=== PATIENT | female | born 1990 | race Caucasian/White ===

== ENCOUNTER 2016-07-11 21:58 | Emergency (ER) | payer MEDICAID ==
[2016-07-11] MEDS ORDERED: SODIUM CHLORIDE 0.9% 1,000 ML IV ONE (22:24)
[2016-07-11] MEDS ORDERED: ONDANSETRON 4 MG/2 ML VIAL IVP STA (22:24)
[2016-07-11] MEDS ORDERED: DIPHENOX/ATROPINE 2.5/0.025 MG TABLET PO STA (22:24)
[2016-07-11] MEDS ORDERED: KETOROLAC 60 MG/2 ML VIAL IVP STA (22:24)
[2016-07-11] MEDS ORDERED: KETOROLAC 30 MG/ML VIAL ONE (22:26)
[2016-07-11] MEDS ORDERED: DIPHENOX/ATROPINE 2.5/0.025 MG TABLET PO ONE (22:26)
[2016-07-11] MEDS ORDERED: ONDANSETRON 4 MG/2 ML VIAL ONE (22:26)
[2016-07-11] MEDS ORDERED: ACETAMINOPHEN 1,000 MG/100 ML 100 ML IV STA (23:46)
[2016-07-12] MEDS ORDERED: ACETAMINOPHEN 1,000 MG/100 ML 100 ML IV ONE
[2016-07-12] MEDS ORDERED: IOPAMIDOL-300 100 ML VIAL IVP ONE (00:25)
[2016-07-12] MEDS ORDERED: ONDANSETRON ODT 4 MG Prepack 2 TL PRN (01:09)
[2016-07-12] MEDS ORDERED: HYDROcod/ACET 5/325 Prepack 6 PO ONE ×2 (01:09→01:12)
[2016-07-12] MEDS ORDERED: ONDANSETRON ODT 4 MG Prepack 2 TL ONE (01:12)
== END 2016-07-12 01:28 | disposition home or self-care (01) ==
DX: R10.31 Right lower quadrant pain (principal); R19.7 Diarrhea, unspecified; R11.2 Nausea with vomiting, unspecified; D27.1 Benign neoplasm of left ovary
CPT/HCPCS: 36415; 74177; 80053; 83690; 85025; 96374; 96375; 99283; 99284; A9270; J0131; Q9967

== ENCOUNTER 2016-12-27 19:11 | Emergency (ER) | payer MEDICAID ==
[2016-12-27 19:35] LABS: BILIRUBIN,URINE NEGATIVE (NEGATIVE); PH,URINE 5.5 PH (5.0-7.5)
[2016-12-27 19:38] LABS: HCG UR QUAL POSITIVE; UA CHARGE (STRIP ONLY) YES; UR CULTURE IF IND NOT INDICATED
[2016-12-27 19:52] LABS: BASOPHILS % (AUTO) 0.3 %; EOSINOPHILS % (AUTO) 0.6 %; HCT - HEMATOCRIT 41.9 % (37.0-47.0); HGB - HEMOGLOBIN 14.3 g/dL (12.0-16.0); LYMPHOCYTES % (AUTO) 14.4 %; MEAN CORPUSCULAR HEMOGLOBIN 31.2 pg (27.0-31.0); MEAN CORPUSCULAR HGB CONC 34.1 g/dL (32.0-36.0); MEAN CORPUSCULAR VOLUME 91.5 fL (81.0-99.0); MEAN PLATELET VOLUME 8.6 fL (7.9-10.8); MONOCYTES # (AUTO) 0.5 10^3/uL (0.0-1.0); MONOCYTES % (AUTO) 6.5 %; NEUTROPHILS # (AUTO) 5.4 10^3/uL (1.5-6.6); NEUTROPHILS % (AUTO) 78.2 %; NUCLEATED RED BLOOD CELLS AUTO 0.1 /100WBC; RED BLOOD COUNT 4.58 10^6/uL (4.20-5.40)
[2016-12-27 20:02] LABS: ALBUMIN/GLOBULIN RATIO 1.4 (1.0-2.2); BILIRUBIN,TOTAL 1.8 mg/dL (0.2-1.0); CALCIUM 9.4 mg/dL (8.5-10.3); CREATININE 0.7 mg/dL (0.4-1.0); POTASSIUM 3.6 mmol/L (3.5-5.0); TOTAL PROTEIN 7.8 g/dL (6.7-8.2)
[2016-12-27] MEDS ORDERED: SODIUM CHLORIDE 0.9% 1,000 ML IV ONE ×2 (20:07→20:25)
--- NOTE | 2016-12-27 20:23 | ED Physician Documentation ---
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 Yesterday she developed acute diarrhea nausea and vomiting. She had some central abdominal pain with this similar to what she has had when she has had her ventral hernia. She feels dehydrated she has had diarrhea 8 times today. She has not had diarrhea here in the emergency department. Review of Systems Constitutional: reports: Fever, Fatigue Eyes: denies: Decreased vision Ears: reports: Ear pain (Right ear) Nose: denies: Congestion Throat: denies: Sore throat Cardiac: denies: Chest pain / pressure, Palpitations Respiratory: denies: Dyspnea, Cough GI: reports: Abdominal Pain, Nausea, Vomiting, Diarrhea : denies: Dysuria, Frequency Skin: denies: Rash Musculoskeletal: denies: Neck pain, Back pain, Extremity pain Neurologic: reports: Generalized weakness. 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 : None HEENT: None Psych: Depression, Panic attacks Musculoskeletal: None Derm: None - Past Surgical History Past Surgical History: Yes General: Hiatal hernia repair /RECRUITMENT AND OUTREACH ASSISTANT: Dilation and currettage - Present Medications Home Medications: Ambulatory Orders Medication Instructions Recorded Confirmed Hydrocodone/Acetaminophen 1 - 2 each PO Q6H PRN #14 tablet 06/10/16 [Hydrocodon-Acetaminophen 5-325] Ondansetron Odt [Zofran] 4 mg TL Q6H PRN #10 tablet 06/10/16 Valacyclovir HCl [Valtrex] 1,000 mg PO BID #20 tablet 06/10/16 Dicyclomine [Bentyl] 20 mg PO QID PRN #15 capsule 07/12/16 Diphenoxylate/Atropine [Lomotil] 1 each PO QID PRN #15 tablet 07/12/16 Ondansetron Odt [Zofran] 4 mg TL Q6H PRN #15 tablet 07/12/16 - Allergies Allergies/Adverse Reactions: Allergies Allergy/AdvReac Type Severity Reaction Status Date / Time No Known Drug Allergies Allergy Verified 12/27/16 19:18 - Social History Does the pt smoke?: No Smoking Status: Never smoker Does the pt drink ETOH?: Yes Does the pt have substance abuse?: Yes - Immunizations Immunizations are current?: Yes - POLST Patient has POLST: No PD ED PE NORMAL - Vitals Vital signs reviewed: Yes (Hypertensive) - General General: Alert and oriented X 3, No acute distress, Well developed/nourished - HEENT HEENT: Atraumatic, PERRL, EOMI, Ears normal - Neck Neck: Supple, no meningeal sign, No bony TTP - Cardiac Cardiac: RRR, No murmur - Respiratory Respiratory: No respiratory distress, Clear bilaterally - Abdomen Abdomen: Soft, Non tender - Back Back: No CVA TTP, No spinal TTP - Derm Derm: Normal color, Warm and dry, No rash - Extremities Extremities: No deformity, No edema - Neuro Neuro: No motor deficit, No sensory deficit - Psych Psych: Normal mood, Normal affect Results - Vitals Vitals: Vital Signs - 24 hr 12/27/16 12/27/16 19:18 21:09 Temperature 37.0 C 36.5 C Heart Rate 90 52 L Respiratory 16 15 Rate Blood Pressure 143/90 H 117/71 O2 Saturation 100 96 Oxygen O2 Source Room air - Labs Labs: Laboratory Tests 12/27/16 12/27/16 12/27/16 19:30 19:40 19:40 WBC 7.0 RBC 4.58 Hgb 14.3 Hct 41.9 MCV 91.5 MCH 31.2 H MCHC 34.1 RDW 13.0 Plt Count 213 MPV 8.6 Neut # 5.4 Lymph # 1.0 L [place] # 0.5 Eos # 0.0 Baso # 0.0 Absolute Nucleated RBC 0.01 Nucleated RBCs 0.1 Sodium 135 Potassium 3.6 Chloride 103 Carbon Dioxide 25 Anion Gap 7.0 BUN 8 Creatinine 0.7 Estimated GFR (MDRD) 100 Glucose 149 H POC Whole Bld Glucose Calcium 9.4 Total Bilirubin 1.8 H AST 18 ALT 15 Alkaline Phosphatase 47 Total Protein 7.8 Albumin 4.5 Globulin 3.3 Albumin/Globulin Ratio 1.4 Lipase 21 L Urine Color YELLOW Urine Clarity CLEAR Urine pH 5.5 Ur Specific [place] >=1.030 H Urine Protein NEGATIVE Urine Glucose (UA) NEGATIVE Urine Ketones 40 H Urine Occult Blood NEGATIVE Urine Nitrite NEGATIVE Urine Bilirubin NEGATIVE Urine Urobilinogen 0.2 (NORMAL) Ur Leukocyte Esterase NEGATIVE Ur Microscopic Review NOT INDICATED Urine Culture Comments NOT INDICATED Urine HCG, Qual POSITIVE 12/27/16 22:26 WBC RBC Hgb Hct MCV MCH MCHC RDW Plt Count MPV Neut # Lymph # [place] # Eos # Baso # Absolute Nucleated RBC Nucleated RBCs Sodium Potassium Chloride Carbon Dioxide Anion Gap BUN Creatinine Estimated GFR (MDRD) Glucose POC Whole Bld Glucose 92 Calcium Total Bilirubin AST ALT Alkaline Phosphatase Total Protein Albumin Globulin Albumin/Globulin Ratio Lipase Urine Color Urine Clarity Urine pH Ur Specific [place] Urine Protein Urine Glucose (UA) Urine Ketones Urine Occult Blood Urine Nitrite Urine Bilirubin Urine Urobilinogen Ur Leukocyte Esterase Ur Microscopic Review Urine Culture Comments Urine HCG, Qual Procedures - IVC sono (time) 2019 Bedside IVC sono: IVC measures (cm) (1.22), IVC collapsed c insp (cm) (complete) , Dehydration (1 liter down) PD MEDICAL DECISION MAKING - ED course Complexity details: reviewed old records, reviewed results, re-evaluated patient , considered differential, d/w patient ED course: 26-year-old female again with gastroenteritis that involves diarrhea nausea and vomiting and abdominal pain. She has had this a number of times about every 6 months. 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 We will try to obtain a stool specimen here in the emergency department. She is hydrated with IV saline and Zofran.She has improvement in her symptoms and does not produce a specimen of diarrhea. Her blood sugar was elevated 149 on arrival she had just eaten prior to coming into the emergency department a popsicle. We rechecked her sugar here in the emergency department it was 95. She will follow-up with Dr. Thomas regarding her . Departure - Departure Disposition: 01 Home, Self Care Clinical Impression: Gastroenteritis, Dehydration Instructions: ED Dehydration, ED Gastroenteritis Non Infec Follow-Up: Andrea Maynard MD [Provider Admit Priv/Credential] - Forms: Activity restrictions
[2016-12-27] MEDS ORDERED: ONDANSETRON 4 MG/2 ML VIAL IVP STA (20:24)
[2016-12-27] MEDS ORDERED: ONDANSETRON 4 MG/2 ML VIAL ONE (20:25)
[2016-12-27 22:43] VITALS: BP 122/70
== END 2016-12-27 22:48 | disposition home or self-care (01) ==
LOC: ED 19:11
DX: E86.0 Dehydration (principal); O99.611 Diseases of the digestive system complicating pregnancy, first trimester; K52.9 Noninfective gastroenteritis and colitis, unspecified; O99.511 Diseases of the respiratory system complicating pregnancy, first trimester; J45.909 Unspecified asthma, uncomplicated; Z3A.08 8 weeks gestation of pregnancy
CPT/HCPCS: 36415; 80053; 81001; 81003; 81025; 83690; 85025; 87086; 96361; 96374; 99284

== ENCOUNTER 2018-01-24 23:25 | Emergency (ER) | payer SELFPAY ==
[2018-01-24] MEDS ORDERED: LORazepam 2 MG/ML VIAL IVP STA (23:53)
[2018-01-24] MEDS ORDERED: SODIUM CHLORIDE 0.9% 1,000 ML IV ONE (23:54)
--- NOTE | 2018-01-24 23:54 | ED Physician Documentation ---
History of Present Illness - Stated complaint Stated Complaint: SOA,DIZZINESS - Chief complaint Chief Complaint: Resp - History obtained from History obtained from: Patient - Additonal information Additional information: 27-year-old female presents the emergency department with multiple complaints which started while at work this evening. The patient reports feeling dizzy and lightheaded, short of breath and experienced chest pain. The patient reports the symptoms as a panic attack which she could not get through. The patient's had panic attacks in the past and this is similar to prior episodes. The patient is somewhat improved. The patient denies peripheral edema, fever, cough, URI symptoms or unilateral leg swelling. No other associated symptoms. No triggering factors. Symptoms are described as moderate. No radiation of the symptoms Review of Systems Constitutional: denies: Fever, Chills Eyes: denies: Discharge Ears: denies: Ear pain Nose: denies: Congestion Cardiac: reports: Chest pain / pressure, Palpitations Respiratory: reports: Dyspnea GI: denies: Abdominal Pain : denies: Dysuria Skin: denies: Rash Musculoskeletal: denies: Neck pain Neurologic: reports: Near syncope. 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 : None HEENT: None Psych: Depression, Panic attacks Musculoskeletal: None Derm: None - Past Surgical History Past Surgical History: Yes General: Hiatal hernia repair /HARDWARE INSTALLATION COORDINATOR: Dilation and currettage - Present Medications Home Medications: Ambulatory Orders Medication Instructions Recorded Confirmed Hydrocodone/Acetaminophen 1 - 2 each PO Q6H PRN #14 tablet 06/10/16 [Hydrocodon-Acetaminophen 5-325] Ondansetron Odt [Zofran] 4 mg TL Q6H PRN #10 tablet 06/10/16 Valacyclovir HCl [Valtrex] 1,000 mg PO BID #20 tablet 06/10/16 Dicyclomine [Bentyl] 20 mg PO QID PRN #15 capsule 07/12/16 Diphenoxylate/Atropine [Lomotil] 1 each PO QID PRN #15 tablet 07/12/16 Ondansetron Odt [Zofran] 4 mg TL Q6H PRN #15 tablet 07/12/16 - Allergies Allergies/Adverse Reactions: Allergies Allergy/AdvReac Type Severity Reaction Status Date / Time No Known Drug Allergies Allergy Verified 01/24/18 23:35 - Social History Does the pt smoke?: No Smoking Status: Never smoker Does the pt drink ETOH?: Yes Does the pt have substance abuse?: Yes - Immunizations Immunizations are current?: Yes - POLST Patient has POLST: No PD ED PE NORMAL - General General: Alert and oriented X 3, No acute distress - HEENT HEENT: Atraumatic, PERRL, EOMI, Ears normal - Neck Neck: Supple, no meningeal sign - Cardiac Cardiac: RRR, Strong equal pulses - Respiratory Respiratory: No respiratory distress, Clear bilaterally - Abdomen Abdomen: Soft, Non tender - Derm Derm: Normal color - Extremities Extremities: No deformity, No edema - Neuro Neuro: Alert and oriented X 3, Normal speech - Psych Psych: Normal mood Results - Vitals Vitals: Vital Signs - 24 hr 01/24/18 01/24/18 01/25/18 23:33 23:45 00:40 Temperature 36.7 C Heart Rate 91 97 66 Respiratory 18 16 16 Rate Blood Pressure 162/104 H 120/77 O2 Saturation 100 98 99 01/25/18 01/25/18 01/25/18 00:46 01:01 01:02 Temperature Heart Rate 74 73 Respiratory 17 17 16 Rate Blood Pressure 125/92 H O2 Saturation 97 100 Oxygen O2 Source Room air - EKG (time done) 23:45 Rate: Rate (enter#) Rhythm: NSR Intervals: Normal VT, QRS normal QRS: Normal Ischemia: Normal ST segments - Labs Labs: Laboratory Tests 01/25/18 01/25/18 01/25/18 00:00 00:10 00:10 WBC 9.1 RBC 4.60 Hgb 14.1 Hct 41.5 MCV 90.4 MCH 30.8 MCHC 34.0 RDW 12.7 Plt Count 243 MPV 9.3 Neut # (Auto) 5.0 Lymph # (Auto) 3.4 [place] # (Auto) 0.5 Eos # (Auto) 0.1 Baso # (Auto) 0.1 Absolute Nucleated RBC 0.01 Nucleated RBC % 0.1 D-Dimer < 200.0 L Sodium Potassium Chloride Carbon Dioxide Anion Gap BUN Creatinine Estimated GFR (MDRD) Glucose Calcium Total Bilirubin AST ALT Alkaline Phosphatase Troponin I Total Protein Albumin Globulin Albumin/Globulin Ratio Lipase Serum HCG, Qual Urine Color LT. YELLOW Urine Clarity CLEAR Urine pH 7.0 Ur Specific [place] 1.010 Urine Protein NEGATIVE Urine Glucose (UA) NEGATIVE Urine Ketones NEGATIVE Urine Occult Blood NEGATIVE Urine Nitrite NEGATIVE Urine Bilirubin NEGATIVE Urine Urobilinogen 0.2 (NORMAL) Ur Leukocyte Esterase NEGATIVE Ur Microscopic Review NOT INDICATED Urine Culture Comments NOT INDICATED 01/25/18 01/25/18 01/25/18 00:10 00:10 00:10 WBC RBC Hgb Hct MCV MCH MCHC RDW Plt Count MPV Neut # (Auto) Lymph # (Auto) [place] # (Auto) Eos # (Auto) Baso # (Auto) Absolute Nucleated RBC Nucleated RBC % D-Dimer Sodium 136 Potassium 3.4 L Chloride 100 L Carbon Dioxide 28 Anion Gap 8.0 BUN 19 Creatinine 0.9 Estimated GFR (MDRD) 75 L Glucose 108 H Calcium 10.0 Total Bilirubin 1.2 H AST 18 ALT 19 Alkaline Phosphatase 60 Troponin I < 0.04 Total Protein 8.7 H Albumin 4.6 Globulin 4.1 Albumin/Globulin Ratio 1.1 Lipase 33 Serum HCG, Qual NEGATIVE Urine Color Urine Clarity Urine pH Ur Specific [place] Urine Protein Urine Glucose (UA) Urine Ketones Urine Occult Blood Urine Nitrite Urine Bilirubin Urine Urobilinogen Ur Leukocyte Esterase Ur Microscopic Review Urine Culture Comments PD MEDICAL DECISION MAKING - ED course ED course: The patient's workup does not reveal any acute abnormality that would necessitate admission to the hospital and the patient appears appropriate for discharge home and further evaluation as an outpatient. I discussed with the patient the findings and plan she understands and agrees. I discussed warning signs and recommended returning to the emergency department immediately for any worsening or any concerns. - Sepsis Event Vital Signs: Vital Signs - 24 hr 01/24/18 01/24/18 01/25/18 23:33 23:45 00:40 Temperature 36.7 C Heart Rate 91 97 66 Respiratory 18 16 16 Rate Blood Pressure 162/104 H 120/77 O2 Saturation 100 98 99 01/25/18 01/25/18 01/25/18 00:46 01:01 01:02 Temperature Heart Rate 74 73 Respiratory 17 17 16 Rate Blood Pressure 125/92 H O2 Saturation 97 100 Oxygen O2 Source Room air Departure - Departure Disposition: 01 Home, Self Care Clinical Impression: Dizziness, Shortness of breath Chest pain Qualifiers: Chest pain type: unspecified Qualified Code(s): R07.9 - Chest pain, unspecified Condition: Good Instructions: ED Dyspnea Shortness of Breath, ED Chest Pain [facility] Comments: Please follow-up with primary care this coming week for further evaluation and management of your symptoms. Please return to the emergency department immediately for worsening symptoms or any concerns
[2018-01-25 00:31] LABS: BASOPHILS # (AUTO) 0.1 10^3/uL (0.0-0.1); BASOPHILS % (AUTO) 0.6 %; EOSINOPHILS # (AUTO) 0.1 10^3/uL (0.0-0.7); EOSINOPHILS % (AUTO) 0.9 %; HGB - HEMOGLOBIN 14.1 g/dL (12.0-16.0); LYMPHOCYTES # (AUTO) 3.4 10^3/uL (1.5-3.5); LYMPHOCYTES % (AUTO) 37.5 %; MEAN CORPUSCULAR HEMOGLOBIN 30.8 pg (27.0-31.0); MEAN CORPUSCULAR VOLUME 90.4 fL (81.0-99.0); MEAN PLATELET VOLUME 9.3 fL (7.9-10.8); MONOCYTES # (AUTO) 0.5 10^3/uL (0.0-1.0); MONOCYTES % (AUTO) 5.5 %; NEUTROPHILS % (AUTO) 55.5 %; PLT - PLATELET COUNT 243 10^3/uL (130-450); RED CELL DISTRIBUTION WIDTH 12.7 % (12.0-15.0); WHITE BLOOD COUNT 9.1 x10^3/uL (4.8-10.8)
[2018-01-25 00:40] LABS: ALBUMIN 4.6 g/dL (3.2-5.5); ALBUMIN/GLOBULIN RATIO 1.1 (1.0-2.2); BILIRUBIN,TOTAL 1.2 mg/dL (0.2-1.0); CREATININE 0.9 mg/dL (0.4-1.0); TOTAL PROTEIN 8.7 g/dL (6.7-8.2)
--- NOTE | 2018-01-25 00:46 | XRAY Report ---
Procedure Date: 01/25/2018 Accession Number: [id number] / [id number] Procedure: XR - Chest 2 View X-Ray CPT Code: 92805 FULL RESULT: EXAM: CHEST RADIOGRAPHY EXAM DATE: 01/25/2018 12:38 AM. CLINICAL HISTORY: Sob. COMPARISON: CHEST 2 VIEW PA/LAT 06/20/2014. TECHNIQUE: 2 views. FINDINGS: Lungs/Pleura: No focal opacities evident. No pleural effusion. No pneumothorax. Normal volumes. Mediastinum: Heart and mediastinal contours are unremarkable. Other: None. IMPRESSION: Normal 2-view chest radiography. RADIA
[2018-01-25 00:53] LABS: HCG,QUALITATIVE BLOOD NEGATIVE
[2018-01-25 00:59] LABS: BILIRUBIN,URINE NEGATIVE (NEGATIVE); GLUCOSE, URINE (UA) NEGATIVE (NEGATIVE); KETONES,URINE (UA) NEGATIVE (NEGATIVE); LEUKOCYTE ESTERASE, URINE NEGATIVE (NEGATIVE); NITRITE,URINE NEGATIVE (NEGATIVE); OCCULT BLOOD,URINE NEGATIVE (NEGATIVE); PROTEIN,URINE NEGATIVE (NEGATIVE); UROBILINOGEN,URINE 0.2 (NORMAL) E.U./dL (NORMAL)
[2018-01-25 01:02] LABS: CLARITY,URINE CLEAR (CLEAR)
[2018-01-25 01:34] VITALS: BP 125/88
== END 2018-01-25 01:25 | disposition home or self-care (01) ==
LOC: ED 23:25
DX: R42 Dizziness and giddiness (principal); R06.02 Shortness of breath; R07.9 Chest pain, unspecified
CPT/HCPCS: 36415; 71046; 80053; 81003; 83690; 84484; 84703; 85025; 85379; 93005; 96361; 96374; 99284; J2060; 81001; 87086

== ENCOUNTER 2019-07-10 12:11 | Outpatient (CLI) | payer BC, OTHER | END 2019-07-10 23:59 | disposition home or self-care (01) | LOC: LAB.R 12:11 | PROVIDERS: ATTEND Family Medicine | DX: A36.9 Diphtheria, unspecified (principal); R05 Cough; R09.81 Nasal congestion | CPT/HCPCS: 87275; 87276 ==

== ENCOUNTER 2019-11-02 17:14 | Outpatient (CLI) | payer BC | END 2019-11-02 17:15 | disposition home or self-care (01) | LOC: COV 17:14 | PROVIDERS: ATTEND Family Medicine | DX: R50.9 Fever, unspecified (principal); M79.10 Myalgia, unspecified site; R53.83 Other fatigue; J02.9 Acute pharyngitis, unspecified | CPT/HCPCS: 81599 ==

== ENCOUNTER 2020-11-22 08:50 | Outpatient (CLI) | payer BC ==
--- NOTE | 2020-11-22 09:51 | XRAY Report ---
PROCEDURE: Chest 2 View X-Ray INDICATIONS: VIRAL SYNDROME TECHNIQUE: 2 view(s) of the chest. COMPARISON: 01/25/2018. FINDINGS: Surgical changes and devices: None. Lungs and pleura: No pleural effusions or pneumothorax. Lungs are clear. Mediastinum: Mediastinal contours are normal. Heart size is normal. Bones and chest wall: No suspicious bony abnormalities. Soft tissues appear unremarkable. IMPRESSION: No acute cardiopulmonary process. Reviewed by: Kenyon Rose MD on 11/22/2020 9:49 AM PDT Approved by: Kenyon Rose MD on 11/22/2020 9:49 AM PDT Station ID: [id number]
== END 2020-11-22 23:59 | disposition home or self-care (01) ==
LOC: DI.N 08:50
PROVIDERS: ATTEND Physician Assistant Medical
DX: B34.9 Viral infection, unspecified (principal); Z20.822 Contact with and (suspected) exposure to COVID-19

== ENCOUNTER 2021-04-11 13:00 | Outpatient (CLI) | payer BC, MEDICAID ==
[2021-04-11 14:27] LABS: BILIRUBIN,URINE NEGATIVE (NEGATIVE); GLUCOSE, URINE (UA) NEGATIVE (NEGATIVE); KETONES,URINE (UA) TRACE mg/dL (NEGATIVE); LEUKOCYTE ESTERASE, URINE NEGATIVE (NEGATIVE); NITRITE,URINE NEGATIVE (NEGATIVE); OCCULT BLOOD,URINE TRACE-INTA (NEGATIVE); PROTEIN,URINE NEGATIVE (NEGATIVE); UROBILINOGEN,URINE 0.2 (NORMAL) E.U./dL (NORMAL)
[2021-04-11 14:29] LABS: AMORPHOUS SEDIMENT,UR Marked /LPF; BACTERIA,URINE Rare /HPF (None Seen); CLARITY,URINE CLOUDY (CLEAR); RBC,URINE 0-5 /HPF (0-5); SQUAMOUS EPITHELIAL CELL,UR RARE Squamous (<= Few); WBC,URINE 0-3 /HPF (0-5)
== END 2021-04-11 23:59 | disposition home or self-care (01) ==
LOC: LAB 13:00
PROVIDERS: ATTEND Obstetrics & Gynecology
DX: Z32.01 Encounter for pregnancy test, result positive (principal)
CPT/HCPCS: 81001; 87086

== ENCOUNTER 2021-04-25 08:55 | Outpatient (CLI) | payer MEDICAID ==
--- NOTE | 2021-04-25 12:32 | Ultrasound Report ---
PROCEDURE: OB First Trimester w/TV INDICATIONS: POSITIVE TEST OUTSIDE/PRIOR DATING DATA: Last menstrual period (LMP): 02/28/2021. LMP-based estimated date of delivery (JING): 12/05/2021. First dating scan (date and location): 04/25/2021. Estimated date of delivery (JING) from first dating scan: 12/01/2021. The below data below was generated using the ultrasound JING of 12/01/2021 TECHNIQUE: Real-time scanning was performed of the fetus and maternal pelvic organs, with image documentation. Endovaginal scanning was also performed to better visualize the fetus and maternal ovaries. COMPARISON: None. FINDINGS: Embryo: Single living intrauterine fetus is present. [place]-rump length measures 2.0 cm, 8 weeks 4 da ys. Cervical length measures 3.5 cm. Heart rate: 160 Measurement variability in dating: +/- 4 weeks by LMP, +/- 7 days by mean sac diameter (use before 6 weeks gestation if crown-rump length not able to be measured), +/- 5 days by crown-rump length (6-12 weeks gestation). Maternal organs: Ovaries right ovary not well visualized sonographically. There is a presumed left-s ided corpus luteum measuring 2.6 x 1.9 x 2.1 cm. Echogenic lesion involving the left ovary measuring 1.9 x 1.8 x 1.7 cm.. IMPRESSION: Single living intrauterine fetus with a gestational age of 8 weeks and 4 days by today's ultrasound m easurements as above. Left ovarian echogenic lesion, technically nonspecific although could reflect dermoid. Recommend cont inued serial ultrasound follow-up to document long-term stability. Reviewed by: Roberto Lucas MD on 04/25/2021 12:30 PM PDT Approved by: Roberto Lucas MD on 04/25/2021 12:30 PM PDT Station ID: [id number]
== END 2021-04-25 08:56 | disposition home or self-care (01) ==
LOC: DI 08:55
PROVIDERS: ATTEND Obstetrics & Gynecology
DX: Z32.01 Encounter for pregnancy test, result positive (principal)

== ENCOUNTER 2021-06-25 22:43 | Emergency (ER) | payer MEDICAID ==
[2021-06-25 23:22] VITALS: BP 143/97
--- NOTE | 2021-06-25 23:32 | ED Physician Documentation ---
PD HPI SKIN - Stated complaint Stated Complaint: FEMALE - Chief complaint Chief Complaint: Wound - History obtained from History obtained from: Patient - History of Present Illness Timing - onset: Yesterday Timing - duration: Days (2) Timing - details: Abrupt onset, Still present Location: Other (left inguinal area.) Quality / character: Painful, Discolored (red), Swelling. No: Draining Associated symptoms: Other (denies vaginal bleeding nor abd cramping. Is 17 weeks .). No: Fever, Myalgias Contributing factors: No: Recent illness Similar symptoms before: Diagnosis (remote skin abscess, staph, in the past. Not regular problem.) Review of Systems Constitutional: denies: Fever, Chills GI: denies: Nausea, Vomiting : reports: Now EGA (17 weeks). 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: Dilation and currettage - Present Medications Home Medications: Ambulatory Orders Medication Instructions Recorded Confirmed Hydrocodone/Acetaminophen 1 - 2 each PO Q6H PRN #14 tablet 06/10/16 06/25/21 [Hydrocodon-Acetaminophen 5-325] Ondansetron Odt [Zofran] 4 mg TL Q6H PRN #10 tablet 06/10/16 06/25/21 Valacyclovir HCl [Valtrex] 1,000 mg PO BID #20 tablet 06/10/16 06/25/21 Dicyclomine [Bentyl] 20 mg PO QID PRN #15 capsule 07/12/16 06/25/21 Diphenoxylate/Atropine [Lomotil] 1 each PO QID PRN #15 tablet 07/12/16 06/25/21 Clindamycin [Cleocin] 300 mg PO TID 7 Days #15 cap 06/26/21 - Allergies Allergies/Adverse Reactions: Allergies Allergy/AdvReac Type Severity Reaction Status Date / Time No Known Drug Allergies Allergy Verified 06/25/21 23:22 - Social History Does the pt smoke?: No Smoking Status: Never smoker Does the pt drink ETOH?: Yes Does the pt have substance abuse?: Yes - Immunizations Immunizations are current?: Yes - POLST Patient has POLST: No PD ED PE NORMAL - Vitals Vital signs reviewed: Yes - General General: Alert and oriented X 3, Well developed/nourished, Other (appears in pain due to abscess.) - Abdomen Abdomen: Soft, Non tender, Other (gravid to below umbilicus. Bedside U/S showing normal movement and FHB. ) - Derm Derm: Normal color, Warm and dry, Other (left inguinal crease with local swelling and tenderness raised area of fluctuance about 1 x 2 cm. U/S showing local fluid collection without fistula nor any adjacent vessels. ) Results - Vitals Vitals: Vital Signs - 24 hr 06/25/21 23:10 Temperature 37.4 C Heart Rate 103 H Respiratory 16 Rate Blood Pressure 143/97 H O2 Saturation 99 Oxygen O2 Source Room air - Labs Labs: Microbiology 06/26/21 00:44 Wound Culture - Preliminary Thigh - Left Procedures - Abscess I&D (location) left inguinal Preparation: Confirmed with ultrasound, Lidocaine 1%, With epi Incision: Incised with scalpel, Purulent drainage, Irrigated, Culture obtained (due to , so to best identify optimal abx choice.) Other: Pt tolerated well, Antibiotic prescribed (based on presumed staph and acceptable in .) PD MEDICAL DECISION MAKING - ED course Complexity details: considered differential, d/w patient Departure - Departure Disposition: 01 Home, Self Care Clinical Impression: Inguinal abscess Condition: Stable Record reviewed to determine appropriate education?: Yes Instructions: ED Abscess IandD Follow-Up: Arlette Puente CNM, PHYSICAL EDUCATION AIDE [Provider Admit Priv/Credential] - Prescriptions: Clindamycin [Cleocin] 300 mg PO TID 7 Days #15 cap Comments: Warm moist towels or soaks for the area to promote further drainage tonight before bed and again in the morning and tomorrow a few times. The incision to drainage should heal up on its own within a day or 2 so promoting drainage prior to that is good. Clindamycin 3 times a day with food for the next several days. Tylenol or ibuprofen as needed for pains. At this point in your you can still use ibuprofen or naproxen 2-3 times daily regularly for the next few days and then add Tylenol if needed for pain. Add the hydrocodone if needed for worse pain in the short-term. No anti-inflammatories after 20 weeks gestation. Tylenol is good through all of . The culture obtained should result in a couple of days and will call if we need to modify the antibiotic choice based on that. However with the incision and d rainage, 3-5 days of the antibiotic may be sufficient to be fully resolved anyway. I transmitted your prescription to [facility]. Discharge Date/Time: 06/26/21 01:10
[2021-06-25] MEDS ORDERED: IBUPROFEN 600 MG TABLET PO STA (23:46)
[2021-06-25] MEDS ORDERED: HYDROcod/ACETAM 5/325 MG TABLET PO STA (23:46)
[2021-06-25] MEDS ORDERED: LIDOCAINE JELLY 2% 6 ML JEL.PF.APP TOP STA (23:46)
[2021-06-25] MEDS ORDERED: CLINDAMYCIN 150 MG CAPSULE PO STA (23:51)
[2021-06-26] MEDS ORDERED: HYDROcod/ACET 5/325 Prepack 4 PO STA (00:53)
== END 2021-06-26 01:10 | disposition home or self-care (01) ==
LOC: ED 22:43
DX: O99.712 Diseases of the skin and subcutaneous tissue complicating pregnancy, second trimester (principal); L02.214 Cutaneous abscess of groin; Z3A.17 17 weeks gestation of pregnancy
CPT/HCPCS: 10060; 87070; 87205; 99283; A9270

== ENCOUNTER 2021-07-24 19:21 | Outpatient (CLI) | payer MEDICAID ==
--- NOTE | 2021-07-25 11:24 | Ultrasound Report ---
PROCEDURE: OB Detailed Eval INDICATIONS: SUPERVISION OF HIGH RISK OUTSIDE/PRIOR DATING DATA: Last menstrual period (LMP): February 28, 2021. LMP-based estimated date of delivery (JING): December 05, 2021. First dating scan (date ): April 25, 2021. Estimated date of delivery (JING) from first dating scan: December 01, 2021. TECHNIQUE: Real-time scanning was performed of the fetus, with image documentation and biometric measurements. COMPARISON: April 25, 2021 FINDINGS: General: A single living intrauterine gestation is present. Presentation: Vertex Placenta: Placental position is anterior, without previa. Amniotic fluid index: 14.9 cm, appropriate for gestational age. Deepest pocket: 4.7 cm heart rate: 160 beats per minute. Maternal cervical canal: 4.9 cm long; normal length is 2.5 cm or more. biometrics: Biparietal diameter: 4.9 cm Head circumference: 19.3 cm Abdominal circumference: 18.4 cm Femur length: 3.9 cm Estimated gestational age from initial scan: not applicable. Composite gestational age from present scan: 21 weeks, 5 days Estimated weight and percentile: 523.3 g +/- 77 g; 95.3% Measurement variability in biometric dating: +/- 10 days from 12-20 weeks gestation, +/- 2 weeks from 20-30 weeks gestation, +/- 3 weeks at 30 weeks gestation or later. Anatomic survey: Neuro: Ventricles are normal at less than 10 mm. Cisterna magna is normal at 3-11 mm. Cerebellum i s normal in size and morphology. Nuchal skin fold: Normal at less than 6 mm between 14 and 20 weeks gestational age. Face: Limited visualization. Spine: Limited visualization. Heart: 4-chambered heart is present, with normal ventricular outflow tracts. Diaphragm: Diaphragm is intact. Stomach: Left-sided stomach is present. Kidneys: No hydronephrosis. Normal is less than 5 mm in 2nd trimester, less than 7 mm in 3rd trimester. Cord: 3 vessel cord has orthotopic insertion. Bladder: Normal in size. Extremities: All 4 extremities are visualized. IMPRESSION: 1.Single intrauterine gestation as detailed above. Reviewed by: Remi Garcia MD on 07/25/2021 11:23 AM PST Approved by: Remi Garcia MD on 07/25/2021 11:23 AM PST Station ID: [id number]
== END 2021-07-24 19:22 | disposition home or self-care (01) ==
LOC: DI 19:21
PROVIDERS: ATTEND Nurse Practitioner Obstetrics & Gynecology
DX: O09.72 Supervision of high risk pregnancy due to social problems, second trimester (principal); Z3A.21 21 weeks gestation of pregnancy

== ENCOUNTER 2021-08-04 10:42 | Outpatient (CLI) | payer MEDICAID | END 2021-08-04 23:59 | disposition home or self-care (01) | LOC: LAB 10:42 | PROVIDERS: ATTEND Obstetrics & Gynecology | DX: O09.70 Supervision of high risk pregnancy due to social problems, unspecified trimester (principal) | CPT/HCPCS: 36415; 82950 ==

== ENCOUNTER 2021-08-08 08:26 | Outpatient (CLI) | payer MEDICAID ==
[2021-08-08 09:02] LABS: GTT GLUCOSE,FASTING 111 mg/dL (70-100)
== END 2021-08-08 08:27 | disposition home or self-care (01) ==
LOC: LAB 08:26
PROVIDERS: ATTEND Obstetrics & Gynecology
DX: O99.810 Abnormal glucose complicating pregnancy (principal)
CPT/HCPCS: 36415; 82951; 82952

== ENCOUNTER 2021-08-18 09:33 | Outpatient (CLI) | payer MEDICAID | END 2021-08-18 09:34 | disposition home or self-care (01) | LOC: NS 09:33 | PROVIDERS: ATTEND Nurse Practitioner Obstetrics & Gynecology | DX: Z53.9 Procedure and treatment not carried out, unspecified reason (principal) ==

== ENCOUNTER 2021-08-24 21:16 | Emergency (ER) | payer OTHER, MEDICAID ==
[2021-08-24 21:31] VITALS: BP 140/86
--- NOTE | 2021-08-24 21:37 | ED Physician Documentation ---
History of Present Illness - Stated complaint Stated Complaint: EXPOSURE - Chief complaint Chief Complaint: General - History obtained from History obtained from: Patient - History of Present Illness Timing: Today Pain level max: 0 Pain level now: 0 - Additonal information Additional information: Patient is a 30-year-old female work today when she was doing a fingerstick, patient. Blood accidentally splashed up on her forehead and cheek. Unsure if any blood got in her eye or not. Nothing makes it better or worse. Patient is asymptomatic. 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 PRESS CATCHER: Dilation and currettage - Present Medications Home Medications: Ambulatory Orders Medication Instructions Recorded Confirmed Hydrocodone/Acetaminophen 1 - 2 each PO Q6H PRN #14 tablet 06/10/16 06/25/21 [Hydrocodon-Acetaminophen 5-325] Ondansetron Odt [Zofran] 4 mg TL Q6H PRN #10 tablet 06/10/16 06/25/21 Valacyclovir HCl [Valtrex] 1,000 mg PO BID #20 tablet 06/10/16 06/25/21 Dicyclomine [Bentyl] 20 mg PO QID PRN #15 capsule 07/12/16 06/25/21 Diphenoxylate/Atropine [Lomotil] 1 each PO QID PRN #15 tablet 07/12/16 06/25/21 Clindamycin [Cleocin] 300 mg PO TID 7 Days #15 cap 06/26/21 - Allergies Allergies/Adverse Reactions: Allergies Allergy/AdvReac Type Severity Reaction Status Date / Time No Known Drug Allergies Allergy Verified 08/24/21 21:29 - Social History Does the pt smoke?: No Smoking Status: Never smoker Does the pt drink ETOH?: Yes Does the pt have substance abuse?: Yes - Immunizations Immunizations are current?: Yes - POLST Patient has POLST: No PD ED PE NORMAL - Vitals Vital signs reviewed: Yes - General General: Alert and oriented X 3, No acute distress - HEENT HEENT: PERRL, Moist mucous membranes - Neck Neck: Supple, no meningeal sign - Respiratory Respiratory: No respiratory distress - Derm Derm: Warm and dry - Neuro Neuro: Alert and oriented X 3 - Psych Psych: Normal mood, Normal affect Results - Vitals Vitals: Vital Signs - 24 hr 08/24/21 21:29 Temperature 36.5 C Heart Rate 83 Respiratory 16 Rate Blood Pressure 140/86 H O2 Saturation 97 Oxygen O2 Source Room air - Labs Labs: Laboratory Tests 08/24/21 08/24/21 08/24/21 21:48 21:48 22:00 WBC 11.0 H RBC 3.72 L Hgb 11.6 L Hct 34.4 L MCV 92.5 MCH 31.2 H MCHC 33.7 RDW 13.4 Plt Count 246 MPV 10.2 Sodium 136 Potassium 3.9 Chloride 104 Carbon Dioxide 21 Anion Gap 11.0 BUN 11 Creatinine 0.6 Estimated GFR (MDRD) 117 Glucose 117 H Calcium 9.3 Total Bilirubin 0.7 AST 12 ALT 11 Alkaline Phosphatase 61 Total Protein 6.9 Albumin 3.4 Globulin 3.5 Albumin/Globulin Ratio 1.0 Urine Color YELLOW Urine Clarity CLEAR Urine pH 6.0 Ur Specific [place] 1.010 Urine Protein NEGATIVE Urine Glucose (UA) NEGATIVE Urine Ketones NEGATIVE Urine Occult Blood NEGATIVE Urine Nitrite NEGATIVE Urine Bilirubin NEGATIVE Urine Urobilinogen 0.2 (NORMAL) Ur Leukocyte Esterase NEGATIVE Ur Microscopic Review NOT INDICATED Urine Culture Comments NOT INDICATED PD MEDICAL DECISION MAKING - ED course Complexity details: considered differential, d/w patient ED course: Employee exposure panel drawn. This would be a low to no risk exposure. Small amount of blood only to intact skin. No indication for antivirals at this time. Patient counseled regarding signs and symptoms for which I believe and urgent re-evaluation would be necessary. Patient with good understanding of and agreement to plan and is comfortable going home at this time This document was made in part using voice recognition software. While efforts are made to proofread this document, sound alike and grammatical errors may occur. 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 As we discussed this is a low risk exposure. Discharge Date/Time: 08/24/21 22:06
[2021-08-24 21:50] LABS: HCT - HEMATOCRIT 34.4 % (37.0-47.0); HGB - HEMOGLOBIN 11.6 g/dL (12.0-16.0); MEAN CORPUSCULAR HEMOGLOBIN 31.2 pg (27.0-31.0); MEAN CORPUSCULAR HGB CONC 33.7 g/dL (32.0-36.0); MEAN CORPUSCULAR VOLUME 92.5 fL (81.0-99.0); MEAN PLATELET VOLUME 10.2 fL (7.9-10.8); RED BLOOD COUNT 3.72 10^6/uL (4.20-5.40); RED CELL DISTRIBUTION WIDTH 13.4 % (12.0-15.0)
[2021-08-24 22:06] LABS: ALBUMIN 3.4 g/dL (3.2-5.5); BILIRUBIN,TOTAL 0.7 mg/dL (0.2-1.0); CALCIUM 9.3 mg/dL (8.5-10.3); CREATININE 0.6 mg/dL (0.4-1.0); POTASSIUM 3.9 mmol/L (3.5-5.0); TOTAL PROTEIN 6.9 g/dL (6.7-8.2)
[2021-08-24 22:10] LABS: BILIRUBIN,URINE NEGATIVE (NEGATIVE); GLUCOSE, URINE (UA) NEGATIVE (NEGATIVE); KETONES,URINE (UA) NEGATIVE (NEGATIVE); LEUKOCYTE ESTERASE, URINE NEGATIVE (NEGATIVE); NITRITE,URINE NEGATIVE (NEGATIVE); OCCULT BLOOD,URINE NEGATIVE (NEGATIVE); PROTEIN,URINE NEGATIVE (NEGATIVE); UROBILINOGEN,URINE 0.2 (NORMAL) E.U./dL (NORMAL)
[2021-08-24 22:11] LABS: CLARITY,URINE CLEAR (CLEAR)
[2021-08-26 11:41] LABS: HEPATITIS C ANTIBODY NON-REACTIVE (NON-REACTIVE)
[2021-08-28 14:24] LABS: HIV AG/AB 4TH GEN NON-REACTIVE (NON-REACTIVE)
== END 2021-08-24 22:06 | disposition home or self-care (01) ==
LOC: ED 21:16
DX: Z77.21 Contact with and (suspected) exposure to potentially hazardous body fluids (principal)
CPT/HCPCS: 36415; 80053; 81001; 81003; 85027; 86317; 86803; 87086; 87389; 99282; 99283

== ENCOUNTER 2021-09-06 21:24 | Outpatient (CLI) | payer MEDICAID, OTHER ==
[2021-09-06] MEDS ORDERED: SIMETHICONE CHEW 80 MG TABLET PO ONE (22:00)
[2021-09-06] MEDS ORDERED: ONDANSETRON ODT 4 MG TABLET TL ONE (22:00)
[2021-09-06 22:17] LABS: BASOPHILS % (AUTO) 0.2 %; EOSINOPHILS # (AUTO) 0.1 10^3/uL (0.0-0.7); EOSINOPHILS % (AUTO) 0.8 %; HCT - HEMATOCRIT 34.4 % (37.0-47.0); HGB - HEMOGLOBIN 11.9 g/dL (12.0-16.0); LYMPHOCYTES # (AUTO) 1.8 10^3/uL (1.5-3.5); LYMPHOCYTES % (AUTO) 17.3 %; MEAN CORPUSCULAR HEMOGLOBIN 31.4 pg (27.0-31.0); MEAN CORPUSCULAR HGB CONC 34.6 g/dL (32.0-36.0); MEAN CORPUSCULAR VOLUME 90.8 fL (81.0-99.0); MEAN PLATELET VOLUME 10.3 fL (7.9-10.8); MONOCYTES # (AUTO) 0.7 10^3/uL (0.0-1.0); MONOCYTES % (AUTO) 6.5 %; NEUTROPHILS # (AUTO) 7.9 10^3/uL (1.5-6.6); NEUTROPHILS % (AUTO) 74.5 %; PLT - PLATELET COUNT 246 10^3/uL (130-450); RED BLOOD COUNT 3.79 10^6/uL (4.20-5.40); RED CELL DISTRIBUTION WIDTH 13.3 % (12.0-15.0); WHITE BLOOD COUNT 10.6 x10^3/uL (4.8-10.8)
[2021-09-06 22:30] LABS: ALBUMIN 3.2 g/dL (3.2-5.5); ALBUMIN/GLOBULIN RATIO 0.8 (1.0-2.2); ALKALINE PHOSPHATASE 62 IU/L (42-121); ALT ALANINE AMINOTRANSFERASE < 10 IU/L (10-60); AST ASPARTATE AMINOTRANSFERASE 12 IU/L (10-42); BILIRUBIN,TOTAL 0.6 mg/dL (0.2-1.0); BUN - BLOOD UREA NITROGEN 9 mg/dL (6-20); CARBON DIOXIDE - CO2 22 mmol/L (21-32); CHLORIDE 102 mmol/L (101-111); CREATININE 0.6 mg/dL (0.4-1.0); GFR - MDRD 117 (>89); GLUCOSE 111 mg/dL (70-100); POTASSIUM 3.6 mmol/L (3.5-5.0); SODIUM 135 mmol/L (135-145)
[2021-09-06 23:20] VITALS: BP 119/84
--- NOTE | 2021-09-07 15:54 | PROVIDER PROGRESS NOTE ---
- HPI Chief Complaint: GI symptoms Current : Current EDU 12/05/21 Gestation 27 Weeks and 1 Days 13 Para 2 Vital Signs Temperature 36.8 C 09/06/21 21:35 Heart Rate 108 H 09/06/21 21:35 Respiratory Rate 18 09/06/21 21:35 Blood Pressure 135/87 H 09/06/21 21:35 Temperature 36.8 C 09/06/21 23:00 Heart Rate 86 09/06/21 23:00 Respiratory Rate 16 09/06/21 23:00 Blood Pressure 119/84 H 09/06/21 23:00 O2 Saturation - Procedures OB Procedure Performed: NST NST Procedure: NST Procedure Start Date 09/06/21 Start Time 21:31 Stop Time 22:43 Vibroacoustic Stimulation Used No Patient States Movement Yes Service Date of procedure: 09/06/21 - Plan Plan: HPI: Berkley presents today to [facility] with c/o left upper quadrant abdominal pain. She reports normal recent bowel movement, denies urinary symptoms. Has been eating regularly. [place] flushed and nauseous with sudden onset of pain. She denies abdominal trauma. She reports +FM. She denies vaginal bleeding, leakage of fluid or contractions. 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 State she slept poorly due to her son waking her up in the night but then was able to sleep in this morning so she does not feel it could be fatigue related. NST performed 09/06/2021 NST read 09/06/2021 NST reactive. FHR baseline 140s, moderate variability, + accels, no decels No contractions appreciated via tocometry Heart RRR w/o M/G/R, lungs CTAB, abdomen gravid, soft, left upper quadrant tenderness upon palpation. No rebound tenderness. Bilateral LE's no edema. SVE deferred. CBC & CMP WNL Administered 4mg Zofran and simithocone with moderate improvement in symptoms. Pt has routine f/u OB appt tomorrow. Encouraged her to go home and rest. Pt released home with precautions. Pt verbalized understanding and agrees to above plan. She denies further questions or concerns at this time. FINAL DIAGNOSIS: LUQ abdominal pain
== END 2021-09-06 23:00 | disposition home or self-care (01) ==
LOC: WFO 21:24 → FBP 21:39 → WFO 23:00
PROVIDERS: ATTEND Nurse Practitioner Obstetrics & Gynecology
DX: O99.891 Other specified diseases and conditions complicating pregnancy (principal); R10.12 Left upper quadrant pain; R10.812 Left upper quadrant abdominal tenderness; R11.0 Nausea; Z3A.27 27 weeks gestation of pregnancy
CPT/HCPCS: 36415; 59025; 80053; 85025; 99214; A9270; Q0162

== ENCOUNTER 2021-09-12 10:00 | Outpatient (CLI) | payer MEDICAID | END 2021-09-12 10:01 | disposition short-term general hospital (02) | LOC: EMS 10:00 | DX: O99.891 Other specified diseases and conditions complicating pregnancy (principal); H53.132 Sudden visual loss, left eye; O24.419 Gestational diabetes mellitus in pregnancy, unspecified control; Z3A.28 28 weeks gestation of pregnancy | CPT/HCPCS: A0425; A0427; A0999 ==

== ENCOUNTER 2021-10-13 11:40 | Outpatient (CLI) | payer MEDICAID ==
[2021-10-13 12:12] LABS: BASOPHILS % (AUTO) 0.3 %; EOSINOPHILS # (AUTO) 0.1 10^3/uL (0.0-0.7); EOSINOPHILS % (AUTO) 0.7 %; HCT - HEMATOCRIT 35.9 % (37.0-47.0); HGB - HEMOGLOBIN 12.2 g/dL (12.0-16.0); LYMPHOCYTES # (AUTO) 1.4 10^3/uL (1.5-3.5); LYMPHOCYTES % (AUTO) 18.8 %; MEAN CORPUSCULAR VOLUME 91.3 fL (81.0-99.0); MEAN PLATELET VOLUME 10.9 fL (7.9-10.8); MONOCYTES # (AUTO) 0.4 10^3/uL (0.0-1.0); MONOCYTES % (AUTO) 5.4 %; NEUTROPHILS # (AUTO) 5.7 10^3/uL (1.5-6.6); NEUTROPHILS % (AUTO) 74.5 %; PLT - PLATELET COUNT 241 10^3/uL (130-450); RED BLOOD COUNT 3.93 10^6/uL (4.20-5.40); RED CELL DISTRIBUTION WIDTH 13.2 % (12.0-15.0); WHITE BLOOD COUNT 7.6 x10^3/uL (4.8-10.8)
[2021-10-13 12:26] LABS: ALBUMIN 2.9 g/dL (3.2-5.5); ALBUMIN/GLOBULIN RATIO 0.7 (1.0-2.2); CREATININE 0.6 mg/dL (0.4-1.0); POTASSIUM 4.1 mmol/L (3.5-5.0); TOTAL PROTEIN 6.8 g/dL (6.7-8.2)
[2021-10-13 13:37] VITALS: BP 135/80
[2021-10-13 13:56] LABS: CREATININE,URINE 125.4 mg/dL; PROTEIN/CREATININE RATIO,URINE 0.1 (<=0.2)
--- NOTE | 2021-10-13 15:37 | Ultrasound Report ---
PROCEDURE: OB F/U or Repeat INDICATIONS: High blood pressure GDM OUTSIDE/PRIOR DATING DATA: Last menstrual period (LMP): February 28, 2021. LMP-based estimated date of delivery (JING): December 05, 2021. First dating scan (date ): April 25, 2021. Estimated date of delivery (JING) from first dating scan: December 01, 2021. TECHNIQUE: Real-time scanning was performed of the fetus, with image documentation and biometric measurements. COMPARISON: Prior studies dating back to April 25, 2021. FINDINGS: General: A single living intrauterine gestation is present. Presentation: Vertex Placenta: Placental position is anterior, without previa. Amniotic fluid index: 17.5 cm, appropriate for gestational age. heart rate: 152 beats per minute. Maternal cervical canal: 3.3 cm long; normal length is 2.5 cm or more. Anatomic survey: Face: Not well seen due to positioning. Spine: Sacrum not well seen. The remaining spine appears normal. Diaphragm: Diaphragm is intact. Stomach: Left-sided stomach is present. Kidneys: No hydronephrosis. Normal is less than 5 mm in 2nd trimester, less than 7 mm in 3rd trimester. Bladder: Normal in size. Biophysical profile: Tone: 2 points. Movement: 2 points. Respiration: 2 points. Largest pocket of fluid: 2 points. Other: Not applicable. IMPRESSION: Left single intrauterine gestation as detailed above. Reviewed by: Remi Garcia MD on 10/13/2021 3:36 PM PDT Approved by: Remi Garcia MD on 10/13/2021 3:36 PM PDT Station ID: [id number]
--- NOTE | 2021-10-13 15:38 | Ultrasound Report ---
PROCEDURE: OB Biophysical Profile INDICATIONS: GHTN GDM OUTSIDE/PRIOR DATING DATA: Last menstrual period (LMP): February 28, 2021. LMP-based estimated date of delivery (JING): December 05, 2021. First dating scan (date ): April 25, 2021. Estimated date of delivery (JING) from first dating scan: December 01, 2021. TECHNIQUE: Real-time scanning was performed of the fetus, with image documentation and biometric measurements. COMPARISON: Prior studies dating back to April 25, 2021. FINDINGS: General: A single living intrauterine gestation is present. Presentation: Vertex Placenta: Placental position is anterior, without previa. Amniotic fluid index: 17.5 cm, appropriate for gestational age. heart rate: 152 beats per minute. Maternal cervical canal: 3.3 cm long; normal length is 2.5 cm or more. Anatomic survey: Face: Not well seen due to positioning. Spine: Sacrum not well seen. The remaining spine appears normal. Diaphragm: Diaphragm is intact. Stomach: Left-sided stomach is present. Kidneys: No hydronephrosis. Normal is less than 5 mm in 2nd trimester, less than 7 mm in 3rd trimester. Bladder: Normal in size. Biophysical profile: Tone: 2 points. Movement: 2 points. Respiration: 2 points. Largest pocket of fluid: 2 points. Other: Not applicable. IMPRESSION: Left single intrauterine gestation as detailed above. Reviewed by: Remi Garcia MD on 10/13/2021 3:37 PM PDT Approved by: Remi Garcia MD on 10/13/2021 3:37 PM PDT Station ID: [id number]
--- NOTE | 2021-10-13 19:40 | PROCEDURE REPORT ---
- HPI Diagnosis/Indication for NST: Gestational Diabetes Current EDU 12/05/21 Gestation 32 Weeks and 3 Days 3 Para 2 Vital Signs Temperature 36.9 C 10/13/21 11:57 Heart Rate 83 10/13/21 11:57 Respiratory Rate 17 10/13/21 11:57 Blood Pressure 149/90 H 10/13/21 11:57 O2 Saturation 99 10/13/21 11:57 Temperature 36.9 C 10/13/21 11:59 Heart Rate 85 10/13/21 12:08 Respiratory Rate 16 10/13/21 12:08 Blood Pressure 135/80 H 10/13/21 13:36 O2 Saturation 100 10/13/21 12:08 - NST Procedure NST Procedure Start Date 10/13/21 Start Time 11:52 Stop Time 12:12 Vibroacoustic Stimulation Used No Patient States Movement Yes - Results and Plan Findings/Impression: S: Feeling fine. Denies CAMEJO, visual disturbances, RUQ or epigastric pain. Swelling to hands and feet bilaterally. O: BP remains mildly elevated with serial BP monitoring NST performed 10/13/2021 NST read 10/13/2021 NST reactive. FHR baseline 140s, moderate variability, + 10 x 10 accels, no decels No contractions appreciated via tocometry BPP ordered - 01/29 Labs: Hgb 12.2 Hct 35.9 PLT 241 AST 13 ALT 10 Creatinine 0.6 Urine protein/creatinine ratio 0.1 A: 30yo (10)2 @ 32.3wks gestation A2 Gestational diabetes - noncompliant with medication regimen Elevated BP without the diagnosis of hypertension Anxiety associated with depression P: Pt transferred to physician care. Growth ordered however not completed by door technician. Will continue with twice weekly NSTs and once weekly AFIs. Pt released home with precautions. Appt with Dr. Payne next week. Pt verbalized understanding and agrees to above plan. She denies further questions or concerns at this time.
== END 2021-10-13 14:00 | disposition home or self-care (01) ==
LOC: WFO 11:40 → FBP 11:42 → WFO 14:00
PROVIDERS: ATTEND Nurse Practitioner Obstetrics & Gynecology
DX: O24.419 Gestational diabetes mellitus in pregnancy, unspecified control (principal); O99.891 Other specified diseases and conditions complicating pregnancy; R03.0 Elevated blood-pressure reading, without diagnosis of hypertension; O99.343 Other mental disorders complicating pregnancy, third trimester; F41.8 Other specified anxiety disorders; Z3A.32 32 weeks gestation of pregnancy
CPT/HCPCS: 36415; 59025; 80053; 82570; 84156; 85025; 99215

== ENCOUNTER 2021-10-16 13:00 | Outpatient (CLI) | payer MEDICAID ==
[2021-10-16 13:12] VITALS: BP 132/86
[2021-10-16 14:11] LABS: GLUCOSE, URINE (UA) NEGATIVE (NEGATIVE); KETONES,URINE (UA) >=80 mg/dL (NEGATIVE); LEUKOCYTE ESTERASE, URINE NEGATIVE (NEGATIVE); NITRITE,URINE NEGATIVE (NEGATIVE); OCCULT BLOOD,URINE NEGATIVE (NEGATIVE); PH,URINE 6.5 PH (5.0-7.5); PROTEIN,URINE 100 mg/dL (NEGATIVE); UROBILINOGEN,URINE 0.2 (NORMAL) E.U./dL (NORMAL)
[2021-10-16 14:20] LABS: BACTERIA,URINE Few /HPF (None Seen); BILIRUBIN,URINE NEGATIVE (NEGATIVE); CLARITY,URINE CLEAR (CLEAR); ICTOTEST,URINE NEGATIVE; RBC,URINE 0-5 /HPF (0-5); SQUAMOUS EPITHELIAL CELL,UR MOD Squamous (<= Few); WBC,URINE 0-3 /HPF (0-5)
--- NOTE | 2021-10-16 15:54 | Ultrasound Report ---
PROCEDURE: OB Limited INDICATIONS: abd pain OUTSIDE/PRIOR DATING DATA: Last menstrual period (LMP): 02/28/2021. LMP-based estimated date of delivery (JING): 12/05/2021. First dating scan (date and location): 04/25/2021. Estimated date of delivery (JING) from first dating scan: 12/01/2021. TECHNIQUE: Real-time scanning was performed of the fetus, with image documentation. Endovaginal scanning: No COMPARISON: 10/13/2021 ultrasound. FINDINGS: A single living intrauterine gestation is present. Presentation: Vertex Placenta: Placental position is anterior, without previa. Amniotic fluid index: 11.8 cm heart rate: 160 beats per minutes. Maternal cervical canal: 4.8 cm long; normal length is 2.5 cm or more. IMPRESSION: Single living intrauterine gestation. Reviewed by: Daniella Molina MD on 10/16/2021 3:52 PM PDT Approved by: Daniella Molina MD on 10/16/2021 3:52 PM PDT Station ID: [id number]
[2021-10-16 15:55] LABS: BACTERIAL VAGINOSIS DNA NEGATIVE (NEGATIVE); CANDIDA GLABRATA DNA NEGATIVE (NEGATIVE); CANDIDA GROUP DNA NEGATIVE (NEGATIVE); CANDIDA KRUSEI DNA NEGATIVE (NEGATIVE); TRICHOMONAS VAGINALIS DNA NEGATIVE (NEGATIVE)
[2021-10-16 16:20] LABS: CREATININE,URINE 132.6 mg/dL
[2021-10-16 23:41] LABS: CHLAMYDIA TRACHOMATIS DNA NEGATIVE (NEGATIVE); NEISSERIA GONORRHOEAE DNA NEGATIVE (NEGATIVE)
--- NOTE | 2021-10-20 15:41 | PROCEDURE REPORT ---
- HPI Diagnosis/Indication for NST: Gestational Diabetes Current EDU 12/05/21 Gestation 32 Weeks and 6 Days 13 Para 2 Vital Signs Temperature 98.8 F 10/16/21 13:10 Heart Rate 107 H 10/16/21 13:10 Respiratory Rate 10/16/21 13:10 Blood Pressure 132/86 H 10/16/21 13:10 O2 Saturation 100 10/16/21 13:10 Temperature 98.8 F 10/16/21 13:11 Heart Rate 107 H 10/16/21 13:10 Respiratory Rate 10/16/21 13:10 Blood Pressure 132/86 H 10/16/21 13:10 O2 Saturation 100 10/16/21 13:10 - NST Procedure NST Procedure Start Date 10/16/21 Start Time 14:00 Stop Time 14:30 Vibroacoustic Stimulation Used No Patient States Movement Yes EFM 150 mod john 15x15 accels no decels TOCO: quiet - Results and Plan Plan: - Results and Plan Findings/Impression: Patient is a 30 yo at 32+6 wga with affected by GDM and gestational hypertension here for NST Cat I tracing Cont with twice weekly NST and weekly MILAGRO NST read 10/16/21 DOS: 10/16/21 DX: gestational diabetes gestational hypertension IUP at 32+6 wga
== END 2021-10-16 17:00 | disposition home or self-care (01) ==
LOC: WFO 13:00 → FBP 13:02 → WFO 17:00
PROVIDERS: ATTEND Obstetrics & Gynecology
DX: O24.419 Gestational diabetes mellitus in pregnancy, unspecified control (principal); O13.3 Gestational [pregnancy-induced] hypertension without significant proteinuria, third trimester; O99.891 Other specified diseases and conditions complicating pregnancy; R10.9 Unspecified abdominal pain; Z3A.32 32 weeks gestation of pregnancy
CPT/HCPCS: 59025; 81001; 81514; 82570; 82731; 84156; 87491; 87591; 87661; 99214

== ENCOUNTER 2021-10-19 12:59 | Outpatient (CLI) | payer MEDICAID ==
[2021-10-19 13:18] VITALS: BP 155/99
[2021-10-19 13:45] LABS: BASOPHILS % (AUTO) 0.2 %; EOSINOPHILS % (AUTO) 0.1 %; HCT - HEMATOCRIT 36.3 % (37.0-47.0); HGB - HEMOGLOBIN 12.4 g/dL (12.0-16.0); LYMPHOCYTES # (AUTO) 1.3 10^3/uL (1.5-3.5); LYMPHOCYTES % (AUTO) 14.8 %; MEAN CORPUSCULAR HEMOGLOBIN 31.2 pg (27.0-31.0); MEAN CORPUSCULAR HGB CONC 34.2 g/dL (32.0-36.0); MEAN CORPUSCULAR VOLUME 91.2 fL (81.0-99.0); MEAN PLATELET VOLUME 11.4 fL (7.9-10.8); MONOCYTES # (AUTO) 0.5 10^3/uL (0.0-1.0); MONOCYTES % (AUTO) 5.2 %; NEUTROPHILS # (AUTO) 6.9 10^3/uL (1.5-6.6); NEUTROPHILS % (AUTO) 79.5 %; PLT - PLATELET COUNT 256 10^3/uL (130-450); RED BLOOD COUNT 3.98 10^6/uL (4.20-5.40); RED CELL DISTRIBUTION WIDTH 13.2 % (12.0-15.0); WHITE BLOOD COUNT 8.7 x10^3/uL (4.8-10.8)
[2021-10-19 14:00] LABS: ALBUMIN 3.1 g/dL (3.2-5.5); ALBUMIN/GLOBULIN RATIO 0.8 (1.0-2.2); BILIRUBIN,TOTAL 0.5 mg/dL (0.2-1.0); CALCIUM 9.7 mg/dL (8.5-10.3); CREATININE 0.8 mg/dL (0.4-1.0); POTASSIUM 4.2 mmol/L (3.5-5.0); TOTAL PROTEIN 6.9 g/dL (6.7-8.2)
--- NOTE | 2021-10-20 14:33 | PROCEDURE REPORT ---
- HPI Diagnosis/Indication for NST: Other Current EDU 12/05/21 Gestation 33 Weeks and 2 Days 13 Para 2 Vital Signs Temperature 98.8 F 10/19/21 13:07 Heart Rate 78 10/19/21 13:07 Respiratory Rate 18 10/19/21 13:07 Blood Pressure 156/96 H 10/19/21 13:07 O2 Saturation 99 10/19/21 13:07 Temperature 98.8 F 10/19/21 13:10 Heart Rate 78 10/19/21 13:07 Respiratory Rate 18 10/19/21 13:07 Blood Pressure 155/99 H 10/19/21 13:16 O2 Saturation 99 10/19/21 13:07 - NST Procedure NST Procedure Start Date 10/19/21 Start Time 13:05 Stop Time 13:25 Vibroacoustic Stimulation Used No Patient States Movement Yes EFM 150 mod john 15x15 accels no decels - Results and Plan Findings/Impression: Patient is a 30 yo at 33+2 wga with affected by GDM and GHTN here for NST Cat I tracing Cont with twice weekly NST and weekly MILAGRO NST read 10/19/21 DOS: 10/19/21 DX: gestational hypertension gestational diabetes IUP at 33+2 wga
== END 2021-10-19 13:47 | disposition home or self-care (01) ==
LOC: WFO 12:59 → FBP 13:01 → WFO 13:47
PROVIDERS: ATTEND Obstetrics & Gynecology
DX: O24.419 Gestational diabetes mellitus in pregnancy, unspecified control (principal); O13.3 Gestational [pregnancy-induced] hypertension without significant proteinuria, third trimester; Z3A.32 32 weeks gestation of pregnancy
CPT/HCPCS: 36415; 59025; 80053; 85025; 99213

== ENCOUNTER 2021-10-20 10:16 | Outpatient (CLI) | payer MEDICAID ==
[2021-10-20] MEDS ORDERED: NIFEdipine 10 MG CAPSULE PO PRN (10:40)
[2021-10-20] MEDS ORDERED: LABETALOL 20 MG/4 ML SYRINGE IVP PRN (10:40)
[2021-10-20 10:54] LABS: BASOPHILS % (AUTO) 0.2 %; EOSINOPHILS # (AUTO) 0.1 10^3/uL (0.0-0.7); EOSINOPHILS % (AUTO) 0.6 %; HCT - HEMATOCRIT 38.3 % (37.0-47.0); HGB - HEMOGLOBIN 13.1 g/dL (12.0-16.0); LYMPHOCYTES # (AUTO) 1.6 10^3/uL (1.5-3.5); LYMPHOCYTES % (AUTO) 17.1 %; MEAN CORPUSCULAR HEMOGLOBIN 30.8 pg (27.0-31.0); MEAN CORPUSCULAR HGB CONC 34.2 g/dL (32.0-36.0); MEAN CORPUSCULAR VOLUME 89.9 fL (81.0-99.0); MEAN PLATELET VOLUME 11.5 fL (7.9-10.8); MONOCYTES # (AUTO) 0.5 10^3/uL (0.0-1.0); MONOCYTES % (AUTO) 5.9 %; NEUTROPHILS # (AUTO) 6.9 10^3/uL (1.5-6.6); NEUTROPHILS % (AUTO) 75.9 %; PLT - PLATELET COUNT 254 10^3/uL (130-450); RED BLOOD COUNT 4.26 10^6/uL (4.20-5.40); RED CELL DISTRIBUTION WIDTH 13.2 % (12.0-15.0)
[2021-10-20 11:09] LABS: ALBUMIN/GLOBULIN RATIO 0.8 (1.0-2.2); BILIRUBIN,TOTAL 0.6 mg/dL (0.2-1.0); CALCIUM 9.6 mg/dL (8.5-10.3); CREATININE 0.6 mg/dL (0.4-1.0); POTASSIUM 3.9 mmol/L (3.5-5.0); TOTAL PROTEIN 6.9 g/dL (6.7-8.2)
[2021-10-20 11:37] LABS: CREATININE,URINE 266.4 mg/dL; PROTEIN/CREATININE RATIO,URINE 0.1 (<=0.2)
[2021-10-20 13:18] VITALS: BP 146/92
--- NOTE | 2021-10-20 14:01 | PROVIDER PROGRESS NOTE ---
- HPI Chief Complaint: Hypertension/PIH Current : Current EDU 12/05/21 Gestation 33 Weeks and 3 Days 10 Para 2 Vital Signs Temperature 99.0 F 10/20/21 10:25 Heart Rate 95 10/20/21 10:25 Respiratory Rate 18 10/20/21 10:25 Blood Pressure 146/92 H 10/20/21 10:25 Temperature 99.0 F 10/20/21 13:10 Heart Rate 82 10/20/21 13:10 Respiratory Rate 18 10/20/21 13:10 Blood Pressure 146/92 H 10/20/21 13:10 O2 Saturation - Procedures OB Procedure Performed: NST NST Procedure: NST Procedure Start Date 10/20/21 Start Time 10:27 Stop Time 13:25 Vibroacoustic Stimulation Used No Patient States Movement Yes EFM 155 mod john 15x15 accels no decels TOCO: quiet - Plan Plan: ID: Patient is a 30 yo at 33+3 wga here for assessment of severe range blood pressures. HPI: Patient has been diagnosed with gestational diabetes for which she has been taking metformin 500 mg po with dinner. She also has a new diagnoses of gestational hypertension. She saw Dr. Payne in clinic today and had an SBP of 174 and a repeat SBP in the 160s. No CAMEJO/vision change/RUQ pain. She was told to increase her metformin to 1000 mg with dinner. She reports GERD and noctural sickness (nausea) that keeps her from sleeping. Feels this with her anxiety with morning appointments has affected her blood pressures. Recently started fluoxetine for anxiety/depression. Endorses FM. Denies LOF/VB/CTX. ROS: As per HPI, otherwise remaining systems are negative. PE: VS: 99 82 146/92 18 (BPs cycled over 2 hours) GEN: NAD HEENT: NCAT CV: RR RESP: nl effort ABD: Gravid, S&NT/ND. No RUQ TTP EXT: WWP NEURO: DTRs wnl PSYCH: appropriate affect CBC/CMP/P:C wnl A/P: 30 yo at 33+3 wga here for assessment of severe range blood pressures PIH: BPs consistently within mild range over 2+ hours of observation -PIH labs wnl with negative urine protein -Does not meet criteria for severe as blood pressures have not been observed to be over 160 more than 4 hours -Cont with twice weekly NST and weekly MILAGRO; IOL at 37 weeks -Starting labetalol 200 mg po bid -Will monitor at home BPs -Warning signs reviewed GERD/NAUSEA: -Ordered famotidine 40 mgpo daily -Recommend Unasom to aid with sleep; patient has at home -Does not feel she needs anti-emetics at present GDM: Reviewed need to increase metformin to 1000 mg with dinner FWB: Cat I tracing Warning signs reviewed
== END 2021-10-20 13:10 | disposition home or self-care (01) ==
LOC: WFO 10:16 → FBP 10:18 → WFO 13:10
PROVIDERS: ATTEND Obstetrics & Gynecology
DX: O13.3 Gestational [pregnancy-induced] hypertension without significant proteinuria, third trimester (principal); O24.415 Gestational diabetes mellitus in pregnancy, controlled by oral hypoglycemic drugs; Z3A.33 33 weeks gestation of pregnancy; O99.343 Other mental disorders complicating pregnancy, third trimester; F41.9 Anxiety disorder, unspecified; F32.A Depression, unspecified; O99.613 Diseases of the digestive system complicating pregnancy, third trimester; K21.9 Gastro-esophageal reflux disease without esophagitis
CPT/HCPCS: 36415; 59025; 80053; 82570; 84156; 85025; 99215

== ENCOUNTER 2021-10-21 21:41 | Outpatient (CLI) | payer MEDICAID ==
[2021-10-21 22:54] VITALS: BP 129/76
[2021-10-21] MEDS ORDERED: METOCLOPRAMIDE 10 MG TABLET PO SCH (23:45)
--- NOTE | 2021-10-27 15:13 | PROCEDURE REPORT ---
- HPI Diagnosis/Indication for NST: Other Current EDU 12/05/21 Gestation 33 Weeks and 4 Days 10 Para 2 Vital Signs Temperature 99.4 F 10/21/21 22:03 Heart Rate 75 10/21/21 22:03 Respiratory Rate 18 10/21/21 22:03 Blood Pressure 140/86 H 10/21/21 22:03 Temperature 99.4 F 10/21/21 22:03 Heart Rate 77 10/21/21 22:53 Respiratory Rate 18 10/21/21 22:53 Blood Pressure 129/76 10/21/21 22:53 O2 Saturation - NST Procedure NST Procedure Start Date 10/21/21 Start Time 21:54 Stop Time 22:40 Vibroacoustic Stimulation Used No Patient States Movement Yes EFM 140 mod john 15x15 accels no decels TOCO: quiet - Results and Plan Plan: Patient is a 30 yo at 33+4 wga with a complicated by gestational hypertension and gestational diabetes Patient presented because she was having a headache at home and was concerned about pre-eclampsia. At time of presentation, her headache had resolved. She had one mild range blood pressure with SBP in the 140. Repeat BP was wnl. No active PIH symptoms Normal to mild range blood pressures No change in baseline status Cat I tracing Cont with twice weekly NST and weekly MILAGRO Discharged to home with warning signs reviewed DOS: 10/21/21 NST read 10/21/21
== END 2021-10-21 23:45 | disposition home or self-care (01) ==
LOC: WFO 21:41 → FBP 21:42 → WFO 23:45
PROVIDERS: ATTEND Obstetrics & Gynecology
DX: O13.3 Gestational [pregnancy-induced] hypertension without significant proteinuria, third trimester (principal); O24.419 Gestational diabetes mellitus in pregnancy, unspecified control; Z3A.33 33 weeks gestation of pregnancy
CPT/HCPCS: 59025; 99213

== ENCOUNTER 2021-10-23 06:29 | Outpatient (CLI) | payer MEDICAID ==
[2021-10-23] MEDS ORDERED: LABETALOL 5 MG/1 ML 20 ML MDV IVP ONE (07:22)
[2021-10-23] MEDS ORDERED: LACTATED RINGERS 1,000 ML IV SCH (07:25)
[2021-10-23] MEDS ORDERED: BETAMETHASONE 30 MG/5 ML VIAL IM ONE (07:25)
[2021-10-23 07:31] LABS: CREATININE,URINE 164.4 mg/dL; PROTEIN/CREATININE RATIO,URINE 0.3 (<=0.2)
[2021-10-23] MEDS: MAGNESIUM SULFATE 2 GRAM 2 GM/50 ML BAG IV SCH ×2 (07:50→08:00)
[2021-10-23 07:57] LABS: BASOPHILS % (AUTO) 0.4 %; EOSINOPHILS % (AUTO) 0.4 %; HCT - HEMATOCRIT 35.4 % (37.0-47.0); HGB - HEMOGLOBIN 11.9 g/dL (12.0-16.0); LYMPHOCYTES # (AUTO) 1.5 10^3/uL (1.5-3.5); LYMPHOCYTES % (AUTO) 15.2 %; MEAN CORPUSCULAR HEMOGLOBIN 30.7 pg (27.0-31.0); MEAN CORPUSCULAR HGB CONC 33.6 g/dL (32.0-36.0); MEAN CORPUSCULAR VOLUME 91.2 fL (81.0-99.0); MONOCYTES # (AUTO) 0.6 10^3/uL (0.0-1.0); MONOCYTES % (AUTO) 6.4 %; NEUTROPHILS # (AUTO) 7.8 10^3/uL (1.5-6.6); NEUTROPHILS % (AUTO) 77.2 %; PLT - PLATELET COUNT 236 10^3/uL (130-450); RED BLOOD COUNT 3.88 10^6/uL (4.20-5.40); RED CELL DISTRIBUTION WIDTH 13.1 % (12.0-15.0); WHITE BLOOD COUNT 10.1 x10^3/uL (4.8-10.8)
[2021-10-23] MEDS ORDERED: MAGNESIUM SULFATE IN WATER 20 GM/500 ML IV.SOLN IV SCH (08:00)
[2021-10-23 08:04] LABS: ALBUMIN 2.9 g/dL (3.2-5.5); ALBUMIN/GLOBULIN RATIO 0.7 (1.0-2.2); BILIRUBIN,TOTAL 0.8 mg/dL (0.2-1.0); CALCIUM 9.2 mg/dL (8.5-10.3); CREATININE 0.6 mg/dL (0.4-1.0); TOTAL PROTEIN 6.8 g/dL (6.7-8.2)
[2021-10-23] MEDS ORDERED: valACYclovir 500 MG TABLET PO SCH (09:00)
--- NOTE | 2021-10-23 09:09 | HISTORY & PHYSICAL EXAMINATION ---
Admit History - Visit Reason Visit Reason: Other (Severe range blood pressures) - : 13 Parity: 2 : 10 Risk/History: positive: Gestational diabetes, Pre-eclampsia, Genital herpes Complications This : positive: Gestational diabetes, induced HTN, Pre-eclampsia Smoking Status: Never smoker - Mother's Labs Mother's Blood Type: positive: O Mother's RH: positive: Positive GBS: positive: Other (pending) - Other Maternal History Other Maternal History: ID: Patient is a 30 yo at 33+6 wga with a complicated by problem list below here with severe range blood pressures meeting criteria for pre- eclampsia with severe features. HPI: Recent transfer from midwifery care. Wale has been seen several times over the last few days for brewing pre-eclampsia and periodici severe range blood pressures. She has never maintained a severe range pressure for more than 15 m untilt his am. She is on labetalol 200 mg po bid.She took her am dose at 5:45 am. She reports have a blood pressure with systolics in the 160s and then repeated it and it was in the 170s. No CAMEJO/vision change/RUQ pain. She presented to triage and had an initial blood pressure of 163/84. Blood pressures were trended and she had several SBPs in the 160 range. She was given labetalol 20 mg IV x1 and started on magnesium 4 g bolus with a 2g/hr infusion. She has since had normal range to mild range blood pressures. CBC and CMP were wnl but her P:C was 0.3. Fasting glucose was 120. She takes metfomin 1000 mg po with dinner. She has a hx of HSV with one isolated outbreak 5 years ago. She is without prodromal or overt s/s this am. She has not yet started prophylaxis. PROBLEM LIST: Gestational hypertension now advancing to pre-eclampsia with severe features. Gestational vs T2DM (failed glucola at about 20 wga) Suspected macrosomia (EFW 95%ile at 20 week us) Hx of HSV BMI 44 Social stress; relationship currently stable Prior pain contract Anxiety/Depression BMI 41.9 PNC: GDM: Recently went up to 1000 mg daily of metformin. Will bring sugar logs to next visit to see if further adjustments are necessary. 2/7 postprandial, 5/6 fasting elevated. 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 Anterior placenta, no previa. 3VC. MILAGRO WNL. Size c/w dating (EFW 95%tile). Glucola 173 [id number] 224, 128, 141 Influenza: 03/2021 TDAP 10/20 COVID vaccine Pfizer 03/10/2021 & 03/27/2021 GBS @ 36 wks HSV: POSITIVE - will start prophylaxis early as she will deliver at 37 weeks or sooner. Ordered last visit Breast pump Rx- has one MOD: Anticipate ; Gianluca; daughter 12, son Bronson; epidural. IOL at 37 weeks or sooner. pp contraception: pap: 05/03/2021 NILM HPV negative OB HX: x2. GBS positive in both prior pregnancies Believes she has had "about 9 elective abortions" with 4 D&C and 5 medication managements. Hx abnormal pap 14years ago - last pap 2016 WNL. Pap and HPV collected 2021 Denies hx of LEEP and reports having only one abnormal Pap in 2008 which reverted to normal Hx of HSV about 5 years ago, No outbreaks since. Partner known to be positive. 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 PE: VS: 163/84 158/97 160/92 160/88 165/82 (labetalol IV) 159/77 131/66 133/73 141/77 99.0 73 20 99.0 GEN: NAD HEAD: NCAT EYES: No scleral icterus or conjunctival injection NECK: No cervical LAD or TM CV: RRR RESP: CTAB, normal effort ABD: S&NT/ND PSYCH: appropriate affect NEURO: alert and oriented, normal gait and coordination. Brisk DTRs, R>L EXT: WWP VULVA: Normal external female genitalia. Normal Bartholin's, [place]'s, urethra meatus and anus. GBS collected A/P: 30 yo at 33+6 wga here with pre-eclampsia with severe features PREECLAMPSIA: -Blood pressures responded well to labetalol 20 mg IV x1 -Currently on magnesium 4 g bolus followed with 2g/hr infusion -Continuing oral labetalol 200 mg po bid -No PIH symptoms -CBC and CMP wnl FWB: Vertex on 10/16/21 us. Will re-confirm prior to transfer. Suspected LGA. TOF within the last week and has not had growth us. GBS pending -CEFM -Starting valacyclovir for hx HSV today. No s/s active outbreak. -Betamethasone 12 mg IM given this am at 7:59 am. GDM vs T2DM: TOF within the last week for glucose management. Failed early glucola at about 20 wga. No recent HbA1c. -FBGs consistently elevated; started metformin 1000 mg po with dinner -FBG 120 this am -Ordering POC glucose with likely SSI should patient remain at [facility] after next meal Hx HSV: Isolated outbreak 5 years ago. Has nto yet started ppx as outpatient. No S/S of outbreak -Started valacyclovir this am Meets criteria for delivery at 34 wga. Accepted for transfer at [facility] by Dr. Jennifer Gutierrez Meds/Allgy - Home Medications Home Medications: Ambulatory Orders Medication Instructions Recorded Confirmed Hydrocodone/Acetaminophen 1 - 2 each PO Q6H PRN #14 tablet 06/10/16 06/25/21 [Hydrocodon-Acetaminophen 5-325] Ondansetron Odt [Zofran] 4 mg TL Q6H PRN #10 tablet 06/10/16 06/25/21 Valacyclovir HCl [Valtrex] 1,000 mg PO BID #20 tablet 06/10/16 06/25/21 Dicyclomine [Bentyl] 20 mg PO QID PRN #15 capsule 07/12/16 06/25/21 Diphenoxylate/Atropine [Lomotil] 1 each PO QID PRN #15 tablet 07/12/16 06/25/21 Clindamycin [Cleocin] 300 mg PO TID 7 Days #15 cap 06/26/21 Famotidine 40 mg PO DAILY #60 tablet 10/20/21 Famotidine 40 mg PO DAILY #60 tablet 10/20/21 Labetalol [Trandate] 200 mg PO BID 6 Days #90 tablet 10/20/21 Labetalol [Trandate] 200 mg PO DAILY #60 tablet 10/20/21 Labetalol [Trandate] 200 mg PO DAILY #90 tablet 10/20/21 - Allergies Allergies/Adverse Reactions: Allergies Allergy/AdvReac Type Severity Reaction Status Date / Time No Known Drug Allergies Allergy Verified 08/24/21 21:29 Physical - Abdominal Exam Vital Signs: Temp Pulse Resp BP Pulse Ox 99.0 F 73 20 141/79 H 99 10/23/21 06:45 10/23/21 07:00 10/23/21 07:00 10/23/21 07:00 10/23/21 07:00
[2021-10-23] MEDS ORDERED: METOCLOPRAMIDE 10 MG/2 ML VIAL IVP PRN (10:57)
[2021-10-23 12:10] VITALS: BP 119/71
--- NOTE | 2021-10-24 12:46 | PROCEDURE REPORT ---
- HPI Current EDU 12/05/21 Gestation 33 Weeks and 6 Days 13 Para 2 Vital Signs Temperature 99.0 F 10/23/21 06:38 Heart Rate 74 10/23/21 06:38 Respiratory Rate 18 10/23/21 06:38 Blood Pressure 163/84 H 10/23/21 06:38 Temperature 99.0 F 10/23/21 06:45 Heart Rate 82 10/23/21 12:08 Respiratory Rate 20 10/23/21 12:08 Blood Pressure 119/71 10/23/21 12:08 O2 Saturation 99 10/23/21 08:00 - NST Procedure NST Procedure Start Date 10/23/21 Start Time 06:34 Stop Time 07:00 Vibroacoustic Stimulation Used No Patient States Movement Yes EFM 145 mod john 15x15 accels no decels TOCO: quiet - Results and Plan Findings/Impression: Patient is a 30 yo at 33+6 wga with a complicated by problem list below here with severe range blood pressures meeting criteria for pre- eclampsia with severe features. Cat I tracing Transfer to [facility] for IOL at 33+6 wga DOS: 10/23/21 NST read 10/23/21
== END 2021-10-23 12:02 | disposition short-term general hospital (02) ==
LOC: WFO 06:29 → FBP 06:30 → WFO 12:02
PROVIDERS: ATTEND Obstetrics & Gynecology
DX: O14.13 Severe pre-eclampsia, third trimester (principal); O24.415 Gestational diabetes mellitus in pregnancy, controlled by oral hypoglycemic drugs; O98.32 Other infections with a predominantly sexual mode of transmission complicating childbirth; A60.09 Herpesviral infection of other urogenital tract; Z3A.33 33 weeks gestation of pregnancy; O99.343 Other mental disorders complicating pregnancy, third trimester; F41.9 Anxiety disorder, unspecified; F32.A Depression, unspecified; Z87.59 Personal history of other complications of pregnancy, childbirth and the puerperium
CPT/HCPCS: 36415; 59025; 80053; 82570; 84156; 85025; 87081; 96365; 96372; 96375; 99215; A9270; J2765; J7120

== ENCOUNTER 2021-10-28 20:50 | Inpatient (IN) | payer MEDICAID ==
[2021-10-28] MEDS ORDERED: MAGNESIUM SULFATE 4 GRAM 4 GM/50 ML BAG IV ONE (21:12)
[2021-10-28] MEDS ORDERED: NIFEdipine 10 MG CAPSULE PO STA (21:12)
--- NOTE | 2021-10-28 21:14 | ED Physician Documentation ---
History of Present Illness - Stated complaint Stated Complaint: HBP - Chief complaint Chief Complaint: General - History obtained from History obtained from: Patient - Additonal information Additional information: 30-year-old woman is 3 days after uncomplicated vaginal delivery with severe gestational hypertension and a diagnosis of preeclampsia. She presents with asymptomatic home blood pressures of around 165/110 or so. She is asymptomatic, no headaches, no scotomata, pedal edema which she had previously has resolved. There is no chest pain or trouble breathing. Her current anti hypertensive regimen is labetalol 200 mg p.o. 3 times daily and nifedipine 60 mg long-acting once a day. Note made that the discharge prescription for nifedipine was 30 mg twice a day but insurance would not cover this. Review of Systems Ten Systems: 10 systems reviewed and negative Constitutional: denies: Fever, Chills Cardiac: denies: Chest pain / pressure, Palpitations Respiratory: denies: Dyspnea, Cough PD PAST MEDICAL HISTORY - Past Medical History Past Medical History: Yes Cardiovascular: None Respiratory: Asthma, Other Neuro: None Endocrine/Autoimmune: None GI: None SEED PELLETER: None : None HEENT: None Psych: Depression, Panic attacks Musculoskeletal: None Derm: None - Past Surgical History Past Surgical History: Yes General: Hiatal hernia repair /SEED PELLETER: Dilation and currettage - Present Medications Home Medications: Ambulatory Orders Medication Instructions Recorded Confirmed Hydrocodone/Acetaminophen 1 - 2 each PO Q6H PRN #14 tablet 06/10/16 06/25/21 [Hydrocodon-Acetaminophen 5-325] Ondansetron Odt [Zofran] 4 mg TL Q6H PRN #10 tablet 06/10/16 06/25/21 Valacyclovir HCl [Valtrex] 1,000 mg PO BID #20 tablet 06/10/16 06/25/21 Dicyclomine [Bentyl] 20 mg PO QID PRN #15 capsule 07/12/16 06/25/21 Diphenoxylate/Atropine [Lomotil] 1 each PO QID PRN #15 tablet 07/12/16 06/25/21 Clindamycin [Cleocin] 300 mg PO TID 7 Days #15 cap 06/26/21 Famotidine 40 mg PO DAILY #60 tablet 10/20/21 Famotidine 40 mg PO DAILY #60 tablet 10/20/21 Labetalol [Trandate] 200 mg PO BID 6 Days #90 tablet 10/20/21 Labetalol [Trandate] 200 mg PO DAILY #60 tablet 10/20/21 Labetalol [Trandate] 200 mg PO DAILY #90 tablet 10/20/21 - Allergies Allergies/Adverse Reactions: Allergies Allergy/AdvReac Type Severity Reaction Status Date / Time No Known Drug Allergies Allergy Verified 10/28/21 20:57 - Social History Does the pt smoke?: No Smoking Status: Never smoker Does the pt drink ETOH?: Yes Does the pt have substance abuse?: Yes - Family History Family history: reports: Non contributory - Immunizations Immunizations are current?: Yes - POLST Patient has POLST: No PD ED PE NORMAL - Vitals Vital signs reviewed: Yes - General General: Alert and oriented X 3, No acute distress - HEENT HEENT: PERRL, EOMI, Pharynx benign - Neck Neck: Supple, no meningeal sign, No bony TTP - Cardiac Cardiac: RRR, No murmur - Respiratory Respiratory: No respiratory distress, Clear bilaterally - Abdomen Abdomen: Normal bowel sounds, Soft, Non tender - Back Back: No CVA TTP, No spinal TTP - Derm Derm: Normal color, Warm and dry - Extremities Extremities: No edema, No calf tenderness / cord - Neuro Neuro: Alert and oriented X 3, Normal speech Results - Vitals Vitals: Vital Signs - 24 hr 10/28/21 10/28/21 20:55 21:34 Temperature 36.8 C Heart Rate 70 63 Respiratory 16 16 Rate Blood Pressure 182/103 H 185/102 H O2 Saturation 100 98 Oxygen O2 Source Room air - Labs Labs: Laboratory Tests 10/28/21 10/28/21 21:21 21:21 WBC 7.5 RBC 4.10 L Hgb 12.5 Hct 37.9 MCV 92.4 MCH 30.5 MCHC 33.0 RDW 13.3 Plt Count 224 MPV 10.5 Neut # (Auto) 5.3 Lymph # (Auto) 1.5 Emmons # (Auto) 0.5 Eos # (Auto) 0.2 Baso # (Auto) 0.0 Absolute Nucleated RBC 0.00 Nucleated RBC % 0.0 Sodium 140 Potassium 4.3 Chloride 107 Carbon Dioxide 22 Anion Gap 11.0 BUN 15 Creatinine 0.7 Estimated GFR (MDRD) 98 Glucose 100 Calcium 9.4 Total Bilirubin 0.7 AST 49 H ALT 40 Alkaline Phosphatase 77 Total Protein 6.9 Albumin 3.2 Globulin 3.7 Albumin/Globulin Ratio 0.9 L PD MEDICAL DECISION MAKING - ED course ED course: 30-year-old woman who is 3 days who had significant problems with gestational hypertension and preeclampsia now presents with severe range blood pressures despite home treatment. Case was discussed by phone with Dr. Crespo who will admit her and request that we start a 4 g magnesium bolus and nifedipine short acting 10 mg p.o. Departure - Departure Disposition: ED Place in Observation Clinical Impression: Preeclampsia in period, Gestational hypertension Condition: Serious
[2021-10-28 21:30] LABS: BASOPHILS % (AUTO) 0.5 %; EOSINOPHILS # (AUTO) 0.2 10^3/uL (0.0-0.7); EOSINOPHILS % (AUTO) 2.1 %; HCT - HEMATOCRIT 37.9 % (37.0-47.0); HGB - HEMOGLOBIN 12.5 g/dL (12.0-16.0); LYMPHOCYTES # (AUTO) 1.5 10^3/uL (1.5-3.5); LYMPHOCYTES % (AUTO) 19.3 %; MEAN CORPUSCULAR HEMOGLOBIN 30.5 pg (27.0-31.0); MEAN CORPUSCULAR VOLUME 92.4 fL (81.0-99.0); MEAN PLATELET VOLUME 10.5 fL (7.9-10.8); MONOCYTES # (AUTO) 0.5 10^3/uL (0.0-1.0); MONOCYTES % (AUTO) 6.3 %; NEUTROPHILS # (AUTO) 5.3 10^3/uL (1.5-6.6); PLT - PLATELET COUNT 224 10^3/uL (130-450); RED CELL DISTRIBUTION WIDTH 13.3 % (12.0-15.0); WHITE BLOOD COUNT 7.5 x10^3/uL (4.8-10.8)
[2021-10-28] MEDS ORDERED: NIFEdipine 10 MG CAPSULE PO PRN (21:35)
[2021-10-28] MEDS ORDERED: ACETAMINOPHEN 500 MG TABLET PO PRN (21:35)
[2021-10-28] MEDS ORDERED: LABETALOL 20 MG/4 ML SYRINGE IVP PRN ×3 (21:35)
[2021-10-28] MEDS ORDERED: hydrALAZINE INJ 20 MG/ML VIAL IVP PRN ×2 (21:35)
[2021-10-28] MEDS ORDERED: TERBUTALINE 1 MG/ML VIAL SUBQ PRN (21:35)
[2021-10-28] MEDS ORDERED: SODIUM CHLORIDE FLUSH 0.9% 10 ML SYRINGE IVP PRN (21:35)
--- OUTSIDE RECORDS SUMMARY | 2021-10-28 21:37 | EXTERNAL MEDICAL SUMMARY RPT | Continuity of Care Document ---
:1990 Author Organization [facility] Address [address] [place] [address] Phone Allergies No information. Encounters No information. Medications No information. Problems date description facility 20211023 Hypertension [facility] 20211023 Gestational [-induced] [facility] hypertension without significant proteinuria, third trimester [id number] Loss of Vision [facility] Results No information.
[2021-10-28 21:41] LABS: ALBUMIN 3.2 g/dL (3.2-5.5); ALBUMIN/GLOBULIN RATIO 0.9 (1.0-2.2); BILIRUBIN,TOTAL 0.7 mg/dL (0.2-1.0); CALCIUM 9.4 mg/dL (8.5-10.3); CREATININE 0.7 mg/dL (0.4-1.0); POTASSIUM 4.3 mmol/L (3.5-5.0); TOTAL PROTEIN 6.9 g/dL (6.7-8.2)
[2021-10-28] MEDS: MAGNESIUM SULFATE IN WATER 20 GM/500 ML IV.SOLN IV SCH (22:17)
--- NOTE | 2021-10-28 23:06 | HISTORY & PHYSICAL EXAMINATION ---
Admit History - Visit Reason Visit Reason: Other (post pre-eclampsia) - Smoking Status: Never smoker - Other Maternal History Other Maternal History: ID: Patient is a 30 yo s/p FAVD on 10/25/21 at [facility] in the setting of pre-eclampsia with severe features who presents with severe range blood pressures. HPI: Patient was discharged form [facility] this am. She was discharged on nifedipine XL 30 mg po bid and labetalol 200 mg po Q8H. The pharmacy gave her nifedipine XL 60 mg po once a day 2/2 insurance limitations. She did not take the evening dose becuase of confusion about her dosing. She did take labetalol twice since discharge with her last dose at about 8 pm. She felt her blood pressure rising (described vague somatic symptoms that alert her to high blood pressure). She checked and she had systolics in the 160s that persisted over repeat readings. She presented to the ED for evaluation. SBPs were in the 180s and DBPs were in the 100s. She had a mild elevation in AST but the remainder of her PIH labs were normal. NoHA/vision change/RUQ pain. She was given nifedipine 10 mg po x1 to treat severe range pressures with adeq uate response. She is now in high normal/mild range. She was started on magensium 4 g bolus and a 2g/hr infusion was started upon arrival at L&D. PROBLEM LIST: Gestational hypertension now advancing to pre-eclampsia with severe features. Gestational vs T2DM (failed glucola at about 20 wga) Suspected macrosomia (EFW 95%ile at 20 week us) Hx of HSV BMI 44 Social stress; relationship currently stable Prior pain contract Anxiety/Depression Late PTD 2/2 pre-eclampsia with severe features. PNC (prior to delivery): GDM: Recently went up to 1000 mg daily of metformin. Will bring sugar logs to next visit to see if further adjustments are necessary. 2/7 postprandial, 5/6 fasting elevated. 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 Anterior placenta, no previa. 3VC. MILAGRO WNL. Size c/w dating (EFW 95%tile). Glucola 173 [id number] 224, 128, 141 Influenza: 03/2021 TDAP 10/20 COVID vaccine Pfizer 03/10/2021 & 03/27/2021 GBS @ 36 wks HSV: POSITIVE - will start prophylaxis early as she will deliver at 37 weeks or sooner. Ordered last visit Breast pump Rx- has one MOD: Anticipate ; Gianluca; daughter 12, son Bronson; epidural. IOL at 37 weeks or sooner. pp contraception: pap: 05/03/2021 NILM HPV negative OB HX: x2. GBS positive in both prior pregnancies Believes she has had "about 9 elective abortions" with 4 D&C and 5 medication ma nagements. Hx abnormal pap 14years ago - last pap 2016 WNL. Pap and HPV collected 2021 Denies hx of LEEP and reports having only one abnormal Pap in 2008 which reverted to normal Hx of HSV about 5 years ago, No outbreaks since. Partner known to be positive. 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 PE: VS: GEN: NAD HEAD: NCAT EYES: No scleral icterus or conjunctival injection NECK: No cervical LAD or TM CV: RRR RESP: CTAB, normal effort ABD: S&NT/ND PSYCH: appropriate affect NEURO: alert and oriented, normal gait and coordination. Brisk DTRs, R>L EXT: WWP VULVA: Normal external female genitalia. Normal Bartholin's, [place]'s, urethra meatus and anus. GBS collected A/P: Patient is a 30 yo s/p FAVD on 10/25/21 at [facility] in the setting of pre-eclampsia with severe features who presents with severe range blood pressures. POST PREECLAMPSIA: -Blood pressures responded well to nifedipine 10 mg po x1 -Currently on magnesium 4 g bolus followed with 2g/hr infusion -Continuing oral labetalol 200 mg po tid -Continuing nifedipine XL 30 mg op Q12H; first dose at admit -No PIH symptoms -CBC and CMP wnl other than mild elevated in AST. Will recheck with am labs. GDM vs T2DM: TOF within the last week for glucose management. Failed early glucola at about 20 wga. No recent HbA1c. -Will profile for first day. If normal, will discontinue. -Ordering POC glucose with likely SSI should glucose prove elevated. (Holding on SSI order at present) Admitted for observation. Meds/Allgy - Home Medications Home Medications: Ambulatory Orders Medication Instructions Recorded Confirmed Hydrocodone/Acetaminophen 1 - 2 each PO Q6H PRN #14 tablet 06/10/16 06/25/21 [Hydrocodon-Acetaminophen 5-325] Ondansetron Odt [Zofran] 4 mg TL Q6H PRN #10 tablet 06/10/16 06/25/21 Valacyclovir HCl [Valtrex] 1,000 mg PO BID #20 tablet 06/10/16 06/25/21 Dicyclomine [Bentyl] 20 mg PO QID PRN #15 capsule 07/12/16 06/25/21 Diphenoxylate/Atropine [Lomotil] 1 each PO QID PRN #15 tablet 07/12/16 06/25/21 Clindamycin [Cleocin] 300 mg PO TID 7 Days #15 cap 06/26/21 Famotidine 40 mg PO DAILY #60 tablet 10/20/21 Famotidine 40 mg PO DAILY #60 tablet 10/20/21 Labetalol [Trandate] 200 mg PO BID 6 Days #90 tablet 10/20/21 Labetalol [Trandate] 200 mg PO DAILY #60 tablet 10/20/21 Labetalol [Trandate] 200 mg PO DAILY #90 tablet 10/20/21 - Allergies Allergies/Adverse Reactions: Allergies Allergy/AdvReac Type Severity Reaction Status Date / Time No Known Drug Allergies Allergy Verified 10/28/21 20:57 Physical - Abdominal Exam Vital Signs: Temp Pulse Resp BP Pulse Ox 99.1 F 74 16 145/84 H 96 10/28/21 22:05 10/28/21 22:30 10/28/21 22:45 10/28/21 22:45 10/28/21 22:45
[2021-10-28] MEDS: LABETALOL 100 MG TABLET PO SCH (23:07)
[2021-10-28] MEDS: NIFEdipine ER 30 MG TABLET PO SCH (23:10)
[2021-10-28] MEDS ORDERED: hydrOXYzine PAMOATE 25 MG CAPSULE PO PRN (23:14)
[2021-10-29 05:05] LABS: BASOPHILS % (AUTO) 0.3 %; EOSINOPHILS # (AUTO) 0.2 10^3/uL (0.0-0.7); EOSINOPHILS % (AUTO) 2.1 %; HGB - HEMOGLOBIN 11.2 g/dL (12.0-16.0); LYMPHOCYTES # (AUTO) 1.8 10^3/uL (1.5-3.5); LYMPHOCYTES % (AUTO) 20.2 %; MEAN CORPUSCULAR HEMOGLOBIN 30.6 pg (27.0-31.0); MEAN CORPUSCULAR HGB CONC 32.9 g/dL (32.0-36.0); MEAN CORPUSCULAR VOLUME 92.9 fL (81.0-99.0); MONOCYTES # (AUTO) 0.5 10^3/uL (0.0-1.0); MONOCYTES % (AUTO) 5.7 %; NEUTROPHILS # (AUTO) 6.3 10^3/uL (1.5-6.6); NEUTROPHILS % (AUTO) 71.1 %; PLT - PLATELET COUNT 219 10^3/uL (130-450); RED BLOOD COUNT 3.66 10^6/uL (4.20-5.40); RED CELL DISTRIBUTION WIDTH 13.2 % (12.0-15.0); WHITE BLOOD COUNT 8.9 x10^3/uL (4.8-10.8)
[2021-10-29 05:13] LABS: CALCIUM, IONIZED 1.1 mmol/L (1.15-1.33); VBG PH 7.442 (7.31-7.41)
[2021-10-29 05:16] LABS: ALBUMIN/GLOBULIN RATIO 0.9 (1.0-2.2); BILIRUBIN,TOTAL 0.6 mg/dL (0.2-1.0); CALCIUM 8.5 mg/dL (8.5-10.3); CREATININE 0.7 mg/dL (0.4-1.0); TOTAL PROTEIN 6.3 g/dL (6.7-8.2)
[2021-10-29] MEDS: SODIUM CHLORIDE FLUSH 0.9% 10 ML SYRINGE IVP SCH ×2 (06:00→11:27)
[2021-10-29] MEDS: MAGNESIUM SULFATE IN WATER 20 GM/500 ML IV.SOLN IV SCH ×2 (08:44→18:45)
[2021-10-29] MEDS: LABETALOL 100 MG TABLET PO SCH ×2 (08:45→16:39)
[2021-10-29] MEDS: NIFEdipine ER 30 MG TABLET PO SCH ×2 (08:45→20:40)
[2021-10-29] MEDS: FAMOTIDINE 20 MG TABLET PO SCH ×2 (08:45→20:40)
[2021-10-29] MEDS ORDERED: FLUoxetine 10 MG CAPSULE PO SCH (09:00)
--- NOTE | 2021-10-29 13:06 | PROVIDER PROGRESS NOTE ---
Subjective - Prog Note Date Prog Note Date: 10/29/21 Prog Note Time: 13:03 - Subjective Subjective: No CAMEJO/vision change./RUQ pain. BPs in mild range overnight. Better with nifedipine and labetalol together. Baby admitted for bili lights. BF going well. Baby maintaining weight. VB almost gone. Limited to traces of blood clots. No issues with voiding. Passes 600 ML per void. No issues with BM. LE edema resolving. Objective - Vital Signs/Intake & Output Reviewed Vital Signs: Yes Vital Signs: Vital Signs x48h Temp Pulse Resp BP Pulse Ox 10/29/21 09:59 139/90 H 10/29/21 08:05 98.6 F 79 20 153/94 H 98 10/29/21 05:33 98.2 F 75 16 153/84 H 97 Intake & Output: Intake & Output 10/26/21 10/27/21 10/28/21 10/29/21 23:59 23:59 23:59 23:59 Intake Total 50.000 500 Output Total 210 1400 Balance -160.000 -900 - Objective General Appearance: positive: No acute distress Neck: positive: Nml inspection Respiratory: positive: No respiratory distress, Breath sounds nml Cardiovascular: positive: Regular rate & rhythm (S&NT/ND. No RUQ TTP) Skin: positive: Color nml Extremities: positive: Non-tender Neurologic/Psychiatric: positive: Oriented x3 Reflexes: Knee (R): 1+, Knee (L): 1+ - Lab Results Fish Bones: 10/29/21 04:58 10/29/21 04:58 Other Labs: Lab Results x24hrs 10/29/21 10/29/21 10/29/21 Range/Units 10:15 05:56 04:58 WBC (4.8-10.8) x10^3/uL RBC (4.20-5.40) 10^6/uL Hgb (12.0-16.0) g/dL Hct (37.0-47.0) % MCV (81.0-99.0) fL MCH (27.0-31.0) pg MCHC (32.0-36.0) g/dL RDW (12.0-15.0) % Plt Count (130-450) 10^3/uL MPV (7.9-10.8) fL Neut # (Auto) (1.5-6.6) 10^3/uL Lymph # (Auto) (1.5-3.5) 10^3/uL Nobles # (Auto) (0.0-1.0) 10^3/uL Eos # (Auto) (0.0-0.7) 10^3/uL Baso # (Auto) (0.0-0.1) 10^3/uL Absolute Nucleated RBC x10^3/uL Nucleated RBC % /100WBC VBG pH 7.442 H (7.31-7.41) Ionized Calcium 1.10 L (1.15-1.33) mmol/L Sodium (135-145) mmol/L Potassium (3.5-5.0) mmol/L Chloride (101-111) mmol/L Carbon Dioxide (21-32) mmol/L Anion Gap (6-13) BUN (6-20) mg/dL Creatinine (0.4-1.0) mg/dL Estimated GFR (MDRD) (>89) Glucose (70-100) mg/dL POC Whole Bld Glucose 124 H 109 H (70 - 100) mg/dL Calcium (8.5-10.3) mg/dL Total Bilirubin (0.2-1.0) mg/dL AST (10-42) IU/L ALT (10-60) IU/L Alkaline Phosphatase (42-121) IU/L Total Protein (6.7-8.2) g/dL Albumin (3.2-5.5) g/dL Globulin (2.1-4.2) g/dL Albumin/Globulin Ratio (1.0-2.2) SARS-CoV-2 (PCR) 10/29/21 10/29/21 10/28/21 Range/Units 04:58 04:58 21:30 WBC 8.9 (4.8-10.8) x10^3/uL RBC 3.66 L (4.20-5.40) 10^6/uL Hgb 11.2 L (12.0-16.0) g/dL Hct 34.0 L (37.0-47.0) % MCV 92.9 (81.0-99.0) fL MCH 30.6 (27.0-31.0) pg MCHC 32.9 (32.0-36.0) g/dL RDW 13.2 (12.0-15.0) % Plt Count 219 (130-450) 10^3/uL MPV 10.0 (7.9-10.8) fL Neut # (Auto) 6.3 (1.5-6.6) 10^3/uL Lymph # (Auto) 1.8 (1.5-3.5) 10^3/uL Nobles # (Auto) 0.5 (0.0-1.0) 10^3/uL Eos # (Auto) 0.2 (0.0-0.7) 10^3/uL Baso # (Auto) 0.0 (0.0-0.1) 10^3/uL Absolute Nucleated RBC 0.00 x10^3/uL Nucleated RBC % 0.0 /100WBC VBG pH (7.31-7.41) Ionized Calcium (1.15-1.33) mmol/L Sodium 139 (135-145) mmol/L Potassium 4.0 (3.5-5.0) mmol/L Chloride 101 (101-111) mmol/L Carbon Dioxide 24 (21-32) mmol/L Anion Gap 14.0 H (6-13) BUN 12 (6-20) mg/dL Creatinine 0.7 (0.4-1.0) mg/dL Estimated GFR (MDRD) 98 (>89) Glucose 116 H (70-100) mg/dL POC Whole Bld Glucose (70 - 100) mg/dL Calcium 8.5 (8.5-10.3) mg/dL Total Bilirubin 0.6 (0.2-1.0) mg/dL AST 44 H (10-42) IU/L ALT 42 (10-60) IU/L Alkaline Phosphatase 78 (42-121) IU/L Total Protein 6.3 L (6.7-8.2) g/dL Albumin 3.0 L (3.2-5.5) g/dL Globulin 3.3 (2.1-4.2) g/dL Albumin/Globulin Ratio 0.9 L (1.0-2.2) SARS-CoV-2 (PCR) NOT DETECTED 10/28/21 10/28/21 Range/Units 21:21 21:21 WBC 7.5 (4.8-10.8) x10^3/uL RBC 4.10 L (4.20-5.40) 10^6/uL Hgb 12.5 (12.0-16.0) g/dL Hct 37.9 (37.0-47.0) % MCV 92.4 (81.0-99.0) fL MCH 30.5 (27.0-31.0) pg MCHC 33.0 (32.0-36.0) g/dL RDW 13.3 (12.0-15.0) % Plt Count 224 (130-450) 10^3/uL MPV 10.5 (7.9-10.8) fL Neut # (Auto) 5.3 (1.5-6.6) 10^3/uL Lymph # (Auto) 1.5 (1.5-3.5) 10^3/uL Nobles # (Auto) 0.5 (0.0-1.0) 10^3/uL Eos # (Auto) 0.2 (0.0-0.7) 10^3/uL Baso # (Auto) 0.0 (0.0-0.1) 10^3/uL Absolute Nucleated RBC 0.00 x10^3/uL Nucleated RBC % 0.0 /100WBC VBG pH (7.31-7.41) Ionized Calcium (1.15-1.33) mmol/L Sodium 140 (135-145) mmol/L Potassium 4.3 (3.5-5.0) mmol/L Chloride 107 (101-111) mmol/L Carbon Dioxide 22 (21-32) mmol/L Anion Gap 11.0 (6-13) BUN 15 (6-20) mg/dL Creatinine 0.7 (0.4-1.0) mg/dL Estimated GFR (MDRD) 98 (>89) Glucose 100 (70-100) mg/dL POC Whole Bld Glucose (70 - 100) mg/dL Calcium 9.4 (8.5-10.3) mg/dL Total Bilirubin 0.7 (0.2-1.0) mg/dL AST 49 H (10-42) IU/L ALT 40 (10-60) IU/L Alkaline Phosphatase 77 (42-121) IU/L Total Protein 6.9 (6.7-8.2) g/dL Albumin 3.2 (3.2-5.5) g/dL Globulin 3.7 (2.1-4.2) g/dL Albumin/Globulin Ratio 0.9 L (1.0-2.2) SARS-CoV-2 (PCR) Assessment/Plan - Problem List (1) Preeclampsia in period Impression: Patient has maintained blood pressures in mild range on nifedipine 30 mg po BID and labetalol 200 mg po TID. -Cont current regimen -Cont on Magnesium until 24 hours -LFTS normalizing -No PIH symptoms -Low calcium; will give one dose calcium gluconate DM: Can DC POC glucose if next 2 are normal. GERD: famotidine 20 mg po bid MH: Fluoxetine 40 mg po QDA -Hydroxyzine 50 po ordered but not taken last night Cont inpatient care
[2021-10-29] MEDS ORDERED: CALCIUM GLUC 1,000MG/50ML-NACL 1,000 MG/50 ML BAG IV ONE (13:10)
[2021-10-29] MEDS ORDERED: FLUoxetine 10 MG CAPSULE PO ONE (14:49)
[2021-10-30] MEDS: LABETALOL 100 MG TABLET PO SCH ×3 (00:48→16:35)
--- NOTE | 2021-10-30 08:37 | PROVIDER PROGRESS NOTE ---
Subjective - Prog Note Date Prog Note Date: 10/30/21 Prog Note Time: 08:33 - Subjective Subjective: NO CAMEJO/Vision change/RUQ pain. Blood pressures in normal to mild range without magensium. COntines on nifed 30 bid and labetalol 200 mg TID. No complaints. Feels great. Objective - Vital Signs/Intake & Output Reviewed Vital Signs: Yes Vital Signs: Vital Signs x48h Temp Pulse Resp BP Pulse Ox 10/30/21 07:26 99.0 F 77 20 135/85 H 97 10/30/21 05:00 99.0 F 75 18 129/83 H 98 10/30/21 03:00 71 16 126/72 97 10/30/21 01:00 99.0 F 73 18 128/79 97 Intake & Output: Intake & Output 10/27/21 10/28/21 10/29/21 10/30/21 23:59 23:59 23:59 23:59 Intake Total 50.000 1500 350 Output Total 210 5000 1 Balance -160.000 -3500 349 - Objective General Appearance: positive: No acute distress Respiratory: positive: No respiratory distress, Breath sounds nml Cardiovascular: positive: Regular rate & rhythm Abdomen: positive: Non-tender (S&NT/ND; no RUQ TTP) Skin: positive: Color nml Extremities: positive: Non-tender Neurologic/Psychiatric: positive: Oriented x3 - Lab Results Fish Bones: 10/29/21 04:58 10/29/21 04:58 Other Labs: Lab Results x24hrs 10/29/21 10/29/21 Range/Units 18:57 10:15 POC Whole Bld Glucose 90 124 H (70 - 100) mg/dL Assessment/Plan - Problem List (1) Preeclampsia in period Impression: Patient has been doing well off magnesium BPs in normal to mild range on nifedipine XL 30 mg po bid and labetalol 200 mg Q8H. Will observe through day with plan to DC in early evening. 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
--- NOTE | 2021-10-30 08:44 | Discharge Plan ---
Discharge Plan Problem Reviewed?: Yes Disposition: Home, Self Care Condition: Serious Prescriptions: Fluoxetine HCl 60 mg PO DAILY #90 tablet NIFEdipine [Procardia Xl] 30 mg PO DAILY #90 tablet Labetalol [Trandate] 200 mg PO Q8H #90 tablet Diet: Regular Activity Restrictions: Additional Comments (Nothing in the vagina for 6 weeks Call for: bleeding in which you are soaking a pad an hour for 2 hours in a row Severe pain that does not get better with pain medicine Fever more than 100.5 Pain in your calf, with deep breaths, or swelling in one leg more than the other) Plan of Treatment: Call for SBP > 160 or DBP > 110 OR Severe headache that does not improve with pain medicine Black spots of sparkly lights in your field of vision Pain in the upper right part of your belly Severe nausea and vomiting Take you blood pressure before taking your nifedipine and labetalol If the SBP is less than 130, wait one hour and check again. If it is still less than 130 one hour later, wait until your next scheduled dose to take the medication If your heart rate is less than 60 when it is time to take the labetalol, wait an hour and check again. No Smoking: If you smoke, Please STOP! Call for help. Follow-up with: Stewart Payne MD [Primary Care Provider] -
[2021-10-30] MEDS ORDERED: FLUoxetine 10 MG CAPSULE PO SCH (09:00)
[2021-10-30] MEDS: FAMOTIDINE 20 MG TABLET PO SCH (09:13)
[2021-10-30] MEDS: NIFEdipine ER 30 MG TABLET PO SCH (10:16)
[2021-10-30] MEDS ORDERED: LORazepam 0.5 MG TABLET PO PRN (13:13)
[2021-10-30] MEDS ORDERED: LABETALOL 100 MG TABLET PO PRN (13:14)
[2021-10-30] MEDS ORDERED: NIFEdipine 10 MG CAPSULE PO ONE (15:44)
[2021-10-30 18:02] VITALS: BP 134/93
[2021-10-30] MEDS ORDERED: LABETALOL 100 MG TABLET PO ONE (22:55)
[2021-10-30] MEDS ORDERED: MAGNESIUM SULFATE 4 GRAM 4 GM/50 ML BAG IV ONE (22:57)
--- NOTE | 2021-11-06 18:33 | DISCHARGE SUMMARY ---
"Discharge Summary Admit Date: 10/28/21 Discharge Date: 10/30/21 Discharging Provider: Cherie Code Status: Attempt Resuscitation Condition at Discharge: Good Discharge Disposition: 01 Home, Self Care - DIAGNOSES Admission Diagnoses: Post- pre-eclampsia with severe features Anxiety Discharge Diagnoses with Status of Each Condition: Same - HPI History of Present Illness: ID: Patient is a 30 yo s/p FAVD on 10/25/21 at [facility] in the setting of pre-eclampsia with severe features who presented with severe range blood pressures. HPI: Patient was discharged from [facility] on morning of presentation. She was discharged on nifedipine XL 30 mg po bid and labetalol 200 mg po Q8H. The pharmacy gave her nifedipine XL 60 mg po once a day 2/2 insurance limitations. She did not take the evening dose becuase of confusion about her dosing. She did take labetalol twice since discharge with her last dose at about 8 pm. She felt her blood pressure rising (described vague somatic symptoms that alert her to high blood pressure). She checked and she had systolics in the 160s that persisted over repeat readings. She presented to the ED for evaluation. SBPs were in the 180s and DBPs were in the 100s. She had a mild elevation in AST but the remainder of her PIH labs were normal. NoHA/vision change/RUQ pain. She was given nifedipine 10 mg po x1 to treat severe range pressures with adequate response. She is now in high normal/mild range. She was started on magensium 4 g bolus and a 2g/hr infusion was started upon arrival at L&D. PROBLEM LIST: Gestational hypertension now advancing to pre-eclampsia with severe features. Gestational vs T2DM (failed glucola at about 20 wga) Suspected macrosomia (EFW 95%ile at 20 week us) Hx of HSV BMI 44 Social stress; relationship currently stable Prior pain contract Anxiety/Depression Late PTD 2/2 pre-eclampsia with severe features. - CONSULTS | PROCEDURES Procedures: None - HOSPITAL COURSE Hospital Course: Patient was admitted for blood pressure management and magnesium infusion. After obtaining initial resolution of severe range pressures with nifepine 10 mg po x1, shemaintained blood pressures in mild range on nifedipine 30 mg po BID and labetalol 200 mg po TID. -She was continued on that regimen -She continued Magnesium infusion for 24 hours -LFTS normalized after admission and magnesium. -No PIH symptoms -Labs indicated low calcium; was given one dose calcium gluconate DM: Had early diagnosis of gestational diabetes at 20 weeks. Had been profiled to rule out T2DM. Point of care glucose checks all within goal range and discontinued after 4 assessments. GERD: Managed with famotidine 20 mg po bid MH: Issues with depression and anxiety - Fluoxetine 40 mg po BID -Hydroxyzine 50 po ordered but not taken Magnesium was discontinued at 24 hours. Patient had been doing well off magnesium BPs was normal to mild range on nifedipine XL 30 mg po bid and labetalol 200 mg Q8H. Was observed through day with pm discharge. 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 Fluoxetine HCl 60 mg PO DAILY #90 tablet NIFEdipine [Procardia Xl] 30 mg PO DAILY #90 tablet Labetalol [Trandate] 200 mg PO Q8H #90 tablet - ALLERGIES Allergies/Adverse Reactions: Allergies Allergy/AdvReac Type Severity Reaction Status Date / Time No Known Drug Allergies Allergy Verified 11/04/21 16:51 - MEDICATIONS Home Medications: Ambulatory Orders Medication Instructions Recorded Confirmed Fluoxetine HCl 60 mg PO DAILY #90 tablet 10/30/21 11/04/21 FLUoxetine [PROzac] 60 mg PO DAILY 11/01/21 11/04/21 Labetalol [Trandate] 200 mg PO TID tablet 11/01/21 11/04/21 NIFEdipine [Procardia Xl] 30 mg PO QPM tablet 11/01/21 11/04/21 NIFEdipine [Procardia Xl] 60 mg PO DAILY tablet 11/01/21 11/04/21 ALPRAZolam [Xanax] 0.25 mg PO Q6H PRN #10 tablet 11/03/21 11/04/21 ALPRAZolam [Xanax] 0.5 mg PO BID PRN #6 tablet 11/04/21 - PHYSICAL EXAM AT DISCHARGE General Appearance: positive: No acute distress Eyes Bilateral: positive: Normal inspection Neck: positive: Nml inspection Respiratory: positive: No respiratory distress, Breath sounds nml Cardiovascular: positive: Regular rate & rhythm Peripheral Pulses: positive: 2+ Abdomen: positive: Other (S&NT/ND. FF below umbi. No RUQ TTP) Skin: positive: Color nml - LABS Result Diagrams: 10/29/21 04:58 10/29/21 04:58 - FOLLOW UP Follow Up: Within 72 hours for BP check - TIME SPENT Time Spent in Discharge (Minutes): 30"
== END 2021-10-30 18:35 | disposition home or self-care (01) | DRG 776 ==
LOC: ED 20:50 → UNDOADMOB 21:35 → INTOOBSV 21:35 → FBP 21:35 → OBSVTOIN 21:35 → UNDODISIN 10-30 18:35
PROVIDERS: ADMIT Obstetrics & Gynecology; ATTEND Obstetrics & Gynecology
DX: O14.15 Severe pre-eclampsia, complicating the puerperium (principal); O98.33 Other infections with a predominantly sexual mode of transmission complicating the puerperium; Z20.822 Contact with and (suspected) exposure to COVID-19; O99.345 Other mental disorders complicating the puerperium; F41.9 Anxiety disorder, unspecified; F32.A Depression, unspecified; A60.09 Herpesviral infection of other urogenital tract; O99.63 Diseases of the digestive system complicating the puerperium; K21.9 Gastro-esophageal reflux disease without esophagitis
CPT/HCPCS: 36415; 80053; 82330; 85025; 87635; 96365; 96366; 99285; A9270; G0378; J3475

== ENCOUNTER 2021-10-30 22:13 | Inpatient (IN) | payer MEDICAID ==
--- OUTSIDE RECORDS SUMMARY | 2021-10-30 22:22 | EXTERNAL MEDICAL SUMMARY RPT | Continuity of Care Document ---
:1990 Author Organization [facility] Address [address] [place] [address] Phone Allergies No information. Encounters No information. Medications No information. Problems date description facility 20211023 Hypertension [facility] 20211023 Gestational [-induced] [facility] hypertension without significant proteinuria, third trimester 20210912 Loss of Vision [facility] Results No information.
[2021-10-30 22:36] LABS: BASOPHILS % (AUTO) 0.4 %; EOSINOPHILS # (AUTO) 0.1 10^3/uL (0.0-0.7); EOSINOPHILS % (AUTO) 1.2 %; HCT - HEMATOCRIT 38.5 % (37.0-47.0); HGB - HEMOGLOBIN 12.7 g/dL (12.0-16.0); LYMPHOCYTES # (AUTO) 1.8 10^3/uL (1.5-3.5); LYMPHOCYTES % (AUTO) 21.2 %; MEAN CORPUSCULAR HEMOGLOBIN 30.5 pg (27.0-31.0); MEAN CORPUSCULAR VOLUME 92.3 fL (81.0-99.0); MONOCYTES # (AUTO) 0.6 10^3/uL (0.0-1.0); MONOCYTES % (AUTO) 6.6 %; PLT - PLATELET COUNT 271 10^3/uL (130-450); RED BLOOD COUNT 4.17 10^6/uL (4.20-5.40); RED CELL DISTRIBUTION WIDTH 13.4 % (12.0-15.0); WHITE BLOOD COUNT 8.5 x10^3/uL (4.8-10.8)
--- NOTE | 2021-10-30 22:40 | HISTORY & PHYSICAL EXAMINATION ---
Admit History - Visit Reason Visit Reason: Other ( preeclampsia) - : 12 Parity: 3 Complications This : positive: Gestational diabetes, Other (Preeclampsia with severe features) Smoking Status: Never smoker - Other Maternal History Other Maternal History: Chief complaint: "My blood pressure is really high" HPI: The patient is 5 days status post vaginal delivery at [facility] on 10/25. She was discharged on 10 28 and later presented to [facility] secondary to elevated blood pressures. The patient was admitted and received magnesium sulfate for seizure prophylaxis. Her blood pressures reportedly improved and she was discharged on nifedipine 30 mg twice daily and 200 mg of labetalol 3 times daily. The patient reports that she checked her blood pressure at home and noted that her blood pressure was 188/117. She was encouraged to report to the emergency department. On presentation the patient's blood pressure was noted to be 172/113. She denies headaches vision changes or abdominal pain. She took her nifedipine just prior to presentation to the emergency department. She denies chest pain or shortness of breath. 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 twice daily Labetalol 200 mg p.o. 3 times daily Prozac 40 mg p.o. daily Famotidine 40 mg p.o. daily Allergiesno known drug added allergies Review of system-as per HPI Physical exam: Heart regular rate and rhythm Lungs clear to auscultation bilaterally Abdomen soft nontender nondistended Lower extremities- negative for edema. Temp Pulse Resp BP Pulse Ox 97.2 F L 78 16 147/99 H 97 10/30/21 22:21 10/30/21 23:25 10/30/21 23:25 10/30/21 23:25 10/30/21 23:25 Assessment and plan : 30-year-old G 13 P3 day 5 status po vaginal delivery, readmitted for preeclampsia with severe features. - Admit for magnesium sulfate for seizure prophylaxis. -Will adjust antihypertensives to nifedipine 60 mg p.o. in the a.m. and 30 mg QPM pending blood pressure monitoring. Continue labetalol 200 mg p.o. 3 times daily Meds/Allgy - Home Medications Home Medications: Ambulatory Orders Medication Instructions Recorded Confirmed Hydrocodone/Acetaminophen 1 - 2 each PO Q6H PRN #14 tablet 06/10/16 06/25/21 [Hydrocodon-Acetaminophen 5-325] Ondansetron Odt [Zofran] 4 mg TL Q6H PRN #10 tablet 06/10/16 06/25/21 Valacyclovir HCl [Valtrex] 1,000 mg PO BID #20 tablet 06/10/16 06/25/21 Dicyclomine [Bentyl] 20 mg PO QID PRN #15 capsule 07/12/16 06/25/21 Diphenoxylate/Atropine [Lomotil] 1 each PO QID PRN #15 tablet 07/12/16 06/25/21 Clindamycin [Cleocin] 300 mg PO TID 7 Days #15 cap 06/26/21 Famotidine 40 mg PO DAILY #60 tablet 10/20/21 Famotidine 40 mg PO DAILY #60 tablet 10/20/21 Labetalol [Trandate] 200 mg PO BID 6 Days #90 tablet 10/20/21 Labetalol [Trandate] 200 mg PO DAILY #60 tablet 10/20/21 Labetalol [Trandate] 200 mg PO DAILY #90 tablet 10/20/21 Fluoxetine HCl 60 mg PO DAILY #90 tablet 10/30/21 Labetalol [Trandate] 200 mg PO Q8H #90 tablet 10/30/21 NIFEdipine [Procardia Xl] 30 mg PO DAILY #90 tablet 10/30/21 - Allergies Allergies/Adverse Reactions: Allergies Allergy/AdvReac Type Severity Reaction Status Date / Time No Known Drug Allergies Allergy Verified 10/30/21 22:23 Physical - Abdominal Exam Vital Signs: Temp Pulse Resp BP Pulse Ox 97.2 F L 75 11 L 154/105 H 96 10/30/21 22:21 10/30/21 22:34 10/30/21 22:34 10/30/21 22:34 10/30/21 22:34
[2021-10-30] MEDS ORDERED: LABETALOL 100 MG TABLET PO STA (22:41)
[2021-10-30] MEDS ORDERED: MAGNESIUM SULFATE 4 GRAM 4 GM/50 ML BAG IV ONE (22:42)
[2021-10-30 22:49] LABS: ALBUMIN 3.7 g/dL (3.2-5.5); ALBUMIN/GLOBULIN RATIO 0.9 (1.0-2.2); BILIRUBIN,TOTAL 1.1 mg/dL (0.2-1.0); CALCIUM 9.5 mg/dL (8.5-10.3); CREATININE 0.7 mg/dL (0.4-1.0); POTASSIUM 4.3 mmol/L (3.5-5.0); TOTAL PROTEIN 7.8 g/dL (6.7-8.2)
--- NOTE | 2021-10-30 22:55 | ED Physician Documentation ---
History of Present Illness - Stated complaint Stated Complaint: HIGH BP - Chief complaint Chief Complaint: General - History obtained from History obtained from: Patient - Additonal information Additional information: Patient is 5 days status post vaginal delivery on October 25 at [facility]. She had preeclampsia and was in the hospital on a magnesium drip and medications for her blood pressure. If she was discharged on October 28. She presented later that day to would be secondary to elevated blood pressure readings and again was admitted And again on a magnesium drip. She was disc harged late this evening and is taking labetalol 200 mg 3 times daily and nifedipine 30 mg twice daily. She was checking her blood pressure prior to taking her scheduled nifedipine dose and it was elevated. She called on-call OB and was directed to the emergency department. Patient denies headache, visual disturbances or abdominal pain. She reports minimal vaginal bleeding. She is breast-feeding. 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: Dilation and currettage - Present Medications Home Medications: Ambulatory Orders Medication Instructions Recorded Confirmed Hydrocodone/Acetaminophen 1 - 2 each PO Q6H PRN #14 tablet 06/10/16 06/25/21 [Hydrocodon-Acetaminophen 5-325] Ondansetron Odt [Zofran] 4 mg TL Q6H PRN #10 tablet 06/10/16 06/25/21 Valacyclovir HCl [Valtrex] 1,000 mg PO BID #20 tablet 06/10/16 06/25/21 Dicyclomine [Bentyl] 20 mg PO QID PRN #15 capsule 07/12/16 06/25/21 Diphenoxylate/Atropine [Lomotil] 1 each PO QID PRN #15 tablet 07/12/16 06/25/21 Clindamycin [Cleocin] 300 mg PO TID 7 Days #15 cap 06/26/21 Famotidine 40 mg PO DAILY #60 tablet 10/20/21 Famotidine 40 mg PO DAILY #60 tablet 10/20/21 Labetalol [Trandate] 200 mg PO BID 6 Days #90 tablet 10/20/21 Labetalol [Trandate] 200 mg PO DAILY #60 tablet 10/20/21 Labetalol [Trandate] 200 mg PO DAILY #90 tablet 10/20/21 Fluoxetine HCl 60 mg PO DAILY #90 tablet 10/30/21 Labetalol [Trandate] 200 mg PO Q8H #90 tablet 10/30/21 NIFEdipine [Procardia Xl] 30 mg PO DAILY #90 tablet 10/30/21 - Allergies Allergies/Adverse Reactions: Allergies Allergy/AdvReac Type Severity Reaction Status Date / Time No Known Drug Allergies Allergy Verified 10/30/21 22:23 - Social History Does the pt smoke?: No Smoking Status: Never smoker Does the pt drink ETOH?: Yes Does the pt have substance abuse?: Yes - Immunizations Immunizations are current?: Yes - POLST Patient has POLST: No PD ED PE NORMAL - General General: Alert and oriented X 3, No acute distress, Well developed/nourished - HEENT HEENT: Atraumatic, Moist mucous membranes - Neck Neck: Supple, no meningeal sign - Cardiac Cardiac: RRR, No murmur, Strong equal pulses - Respiratory Respiratory: No respiratory distress, Clear bilaterally - Abdomen Abdomen: Normal bowel sounds, Soft, Non tender - Derm Derm: No rash - Extremities Extremities: No edema - Neuro Neuro: Normal speech - Psych Psych: Normal mood Results - Vitals Vitals: Vital Signs - 24 hr 10/30/21 10/30/21 10/30/21 22:21 22:24 22:34 Temperature 36.2 C L Heart Rate 91 74 75 Respiratory 19 11 L 11 L Rate Blood Pressure 172/113 H 172/113 H 154/105 H O2 Saturation 97 96 96 Oxygen O2 Source Room air - Labs Labs: Laboratory Tests 10/30/21 10/30/21 10/30/21 22:30 22:30 22:56 WBC 8.5 RBC 4.17 L Hgb 12.7 Hct 38.5 MCV 92.3 MCH 30.5 MCHC 33.0 RDW 13.4 Plt Count 271 MPV 10.0 Neut # (Auto) 6.0 Lymph # (Auto) 1.8 [place] # (Auto) 0.6 Eos # (Auto) 0.1 Baso # (Auto) 0.0 Absolute Nucleated RBC 0.00 Nucleated RBC % 0.0 Sodium 137 Potassium 4.3 Chloride 103 Carbon Dioxide 23 Anion Gap 11.0 BUN 21 H Creatinine 0.7 Estimated GFR (MDRD) 98 Glucose 102 H Calcium 9.5 Total Bilirubin 1.1 H AST 19 ALT 30 Alkaline Phosphatase 81 Total Protein 7.8 Albumin 3.7 Globulin 4.1 Albumin/Globulin Ratio 0.9 L SARS-CoV-2 (PCR) NOT DETECTED PD MEDICAL DECISION MAKING - ED course Complexity details: reviewed results, d/w patient ED course: Patient with recent admission for preeclampsia presenting with significantly elevated blood pressure readings. Patient is without symptoms. Repeat labs obtained. Patient was given p.o. medications with some improvement in her blood pressure but due to still elevated readings, OB was consulted and recommends admission with IV magnesium. 2238 - D/W vocational rehabilitation counselor OB - Plan to restart patient on magnesium drip with bolus at 4 mg and drip at 2 mg/h. We will also give patient labetalol p.o. dose early as blood pressure starting to come down from 170s to 150s. Will come down to see patient to admit as patient will need continued observation. - Critical Care Time(min): 30 Departure - Departure Disposition: 66 [facility] DC/Xfer Clinical Impression: Pre-eclampsia, Condition: Serious Discharge Date/Time: 10/30/21 23:43
[2021-10-30] MEDS ORDERED: MAGNESIUM SULFATE IN WATER 20 GM/500 ML IV.SOLN IV SCH (23:00)
[2021-10-30] MEDS ORDERED: LABETALOL 100 MG TABLET PO SCH (23:00)
[2021-10-30] MEDS ORDERED: HYDROcod/ACETAM 5/325 MG TABLET PO PRN (23:16)
[2021-10-30] MEDS ORDERED: LACTATED RINGERS 1,000 ML IV SCH (23:45)
[2021-10-30] MEDS ORDERED: ZOLPIDEM 5 MG TABLET PO PRN (23:55)
[2021-10-31] MEDS: LABETALOL 100 MG TABLET PO SCH ×4 (06:41→21:59)
[2021-10-31] MEDS: NIFEdipine ER 30 MG TABLET PO SCH (08:57)
[2021-10-31] MEDS ORDERED: FLUoxetine 10 MG CAPSULE PO SCH (09:00)
--- NOTE | 2021-10-31 14:19 | PROVIDER PROGRESS NOTE ---
Subjective - Prog Note Date Prog Note Date: 10/31/21 Prog Note Time: 14:15 - Subjective Pt reports feeling: Improved Subjective: Patient has no complaints. She denies headaches vision changes or abdominal pain. She received magnesium sulfate overnight. Her blood pressures are currently within normal limits. She received nifedipine this morning as well as labetalol 100 mg. Current Medications - Current Medications Current Medications: Active Medications Hydrocodone Bitart/Acetaminophen (Hydrocod/Acetam 5/325 Mg Tablet) 1 tab PO Q4HR PRN PRN Reason: PAIN Fluoxetine HCl (Fluoxetine 10 Mg Capsule) 40 mg PO DAILY [facility] Last Admin: 10/31/21 08:58 Dose: 40 mg Labetalol HCl (Labetalol 100 Mg Tablet) 100 mg PO TID [facility] Last Admin: 10/31/21 14:13 Dose: 100 mg Nifedipine (Nifedipine Er 30 Mg Tablet) 60 mg PO DAILY [facility] Last Admin: 10/31/21 08:57 Dose: 60 mg Zolpidem Tartrate (Zolpidem 5 Mg Tablet) 5 mg PO QPM PRN PRN Reason: Insomnia Objective - Vital Signs/Intake & Output Vital Signs: Vital Signs x48h Temp Pulse Resp BP Pulse Ox 10/31/21 12:00 98.2 F 71 16 125/82 H 97 10/31/21 10:00 68 119/77 10/31/21 08:00 98.2 F 71 16 121/74 99 Intake & Output: Intake & Output 10/28/21 10/29/21 10/30/21 10/31/21 23:59 23:59 23:59 23:59 Intake Total 50 969.5 Output Total 1450 Balance 50 -480.5 - Objective General Appearance: positive: No acute distress Respiratory: positive: No respiratory distress - Lab Results Fish Bones: 10/30/21 22:30 10/30/21 22:30 Other Labs: Lab Results x24hrs 10/30/21 10/30/21 10/30/21 Range/Units 22:56 22:30 22:30 WBC 8.5 (4.8-10.8) x10^3/uL RBC 4.17 L (4.20-5.40) 10^6/uL Hgb 12.7 (12.0-16.0) g/dL Hct 38.5 (37.0-47.0) % MCV 92.3 (81.0-99.0) fL MCH 30.5 (27.0-31.0) pg MCHC 33.0 (32.0-36.0) g/dL RDW 13.4 (12.0-15.0) % Plt Count 271 (130-450) 10^3/uL MPV 10.0 (7.9-10.8) fL Neut # (Auto) 6.0 (1.5-6.6) 10^3/uL Lymph # (Auto) 1.8 (1.5-3.5) 10^3/uL [place] # (Auto) 0.6 (0.0-1.0) 10^3/uL Eos # (Auto) 0.1 (0.0-0.7) 10^3/uL Baso # (Auto) 0.0 (0.0-0.1) 10^3/uL Absolute Nucleated RBC 0.00 x10^3/uL Nucleated RBC % 0.0 /100WBC Sodium 137 (135-145) mmol/L Potassium 4.3 (3.5-5.0) mmol/L Chloride 103 (101-111) mmol/L Carbon Dioxide 23 (21-32) mmol/L Anion Gap 11.0 (6-13) BUN 21 H (6-20) mg/dL Creatinine 0.7 (0.4-1.0) mg/dL Estimated GFR (MDRD) 98 (>89) Glucose 102 H (70-100) mg/dL Calcium 9.5 (8.5-10.3) mg/dL Total Bilirubin 1.1 H (0.2-1.0) mg/dL AST 19 (10-42) IU/L ALT 30 (10-60) IU/L Alkaline Phosphatase 81 (42-121) IU/L Total Protein 7.8 (6.7-8.2) g/dL Albumin 3.7 (3.2-5.5) g/dL Globulin 4.1 (2.1-4.2) g/dL Albumin/Globulin Ratio 0.9 L (1.0-2.2) SARS-CoV-2 (PCR) NOT DETECTED Assessment/Plan - Problem List (1) Preeclampsia in period Impression: 30-year-old G 13 P3 day 6 status post vaginal delivery, readmitted for preeclampsia. preeclampsia patient is status post magnesium sulfate for seizure prophylaxis. She was started on nifedipine 60 mg every morning and 30 mg every afternoon as well as labetalol 100 mg 3 times daily. Her blood pressures are currently within normal limits. Will observe for 24 hours off magnesium sulfate. Patient is currently asymptomatic. Urine output was excellent. Plan discussed with patient who is agreeable.
[2021-10-31] MEDS ORDERED: FLUoxetine 10 MG CAPSULE PO ONE (15:00)
[2021-10-31] MEDS ORDERED: NIFEdipine ER 30 MG TABLET PO SCH (21:00)
[2021-11-01] MEDS: LABETALOL 100 MG TABLET PO SCH (06:15)
[2021-11-01] MEDS ORDERED: FLUoxetine 10 MG CAPSULE PO SCH ×2 (09:00)
[2021-11-01] MEDS: NIFEdipine ER 30 MG TABLET PO SCH (09:12)
--- NOTE | 2021-11-01 12:27 | Discharge Plan ---
Discharge Plan Problem Reviewed?: Yes Disposition: Home, Self Care Condition: Serious Diet: Regular Activity Restrictions: Activity as Tolerated Shower Restrictions: No Driving Restrictions: No Additional Instructions or Follow Up instructions: Return to ED for persistent headaches, shortness of breath, vision changes, or abdominal pain. Return to ED for systolic blood pressure of 160 or greater or diastolic blood pressure of 110 or greater. No Smoking: If you smoke, Please STOP! Call for help. Follow-up with: Stewart Payne MD [Primary Care Provider] -
--- NOTE | 2021-11-01 12:32 | DISCHARGE SUMMARY ---
Discharge Summary Admit Date: 11/01/21 Discharge Date: 11/01/21 Discharging Provider: Curtis Chung MD Condition at Discharge: Serious Discharge Disposition: 01 Home, Self Care - DIAGNOSES Admission Diagnoses: preeclampsia Discharge Diagnoses with Status of Each Condition: preeclampsiastable - HOSPITAL COURSE Hospital Course: 30-year-old G 13 P3 who presented to the emergency department on day 5 secondary to elevated blood pressures. The patient delivered at an outside hospital and was diagnosed with preeclampsia. She received magnesium sulfate and upon discharge 3 presented to [facility] emergency department with elevated blood pressures. She received magnesium sulfate and was discharged but called later the evening of day 5 reports of again severe range blood pressures. She was admitted from the emergency department. She was restarted on magnesium sulfate for seizure prophylaxis. Her p.o. antihypertensives were adjusted to nifedipine 60 mg every morning and nifedipine 30 mg every afternoon as well as labetalol 200 3 times daily. Her blood pressures remained mild to normal range. She was asymptomatic. Her labs are within normal limits. The patient was stable for discharge with recommendations for follow-up. - ALLERGIES Allergies/Adverse Reactions: Allergies Allergy/AdvReac Type Severity Reaction Status Date / Time No Known Drug Allergies Allergy Verified 10/30/21 22:23 - MEDICATIONS Home Medications: Ambulatory Orders Medication Instructions Recorded Confirmed Fluoxetine HCl 60 mg PO DAILY #90 tablet 10/30/21 FLUoxetine [PROzac] 60 mg PO DAILY 11/01/21 Labetalol [Trandate] 200 mg PO TID tablet 11/01/21 NIFEdipine [Procardia Xl] 30 mg PO QPM tablet 11/01/21 NIFEdipine [Procardia Xl] 60 mg PO DAILY tablet 11/01/21 - PHYSICAL EXAM AT DISCHARGE General Appearance: positive: No acute distress Respiratory: positive: No respiratory distress - LABS Result Diagrams: 10/30/21 22:30 10/30/21 22:30 - FOLLOW UP Follow Up: 48 - [address] Payne
[2021-11-01] MEDS ORDERED: LABETALOL 100 MG TABLET PO SCH (14:00)
[2021-11-01 16:29] VITALS: BP 141/94
[2021-11-01] MEDS ORDERED: NIFEdipine ER 30 MG TABLET PO SCH (21:00)
== END 2021-11-01 16:00 | disposition home or self-care (01) | DRG 776 ==
LOC: ED 22:13 → FBP 23:11
PROVIDERS: ADMIT Obstetrics & Gynecology; ATTEND Obstetrics & Gynecology
DX: O14.15 Severe pre-eclampsia, complicating the puerperium (principal); Z20.822 Contact with and (suspected) exposure to COVID-19
CPT/HCPCS: 36415; 80053; 85025; 87635; 96365; 99285; 99291; A9270; J7120; J3475

== ENCOUNTER 2021-11-01 23:34 | Emergency (ER) | payer MEDICAID ==
--- OUTSIDE RECORDS SUMMARY | 2021-11-01 23:49 | EXTERNAL MEDICAL SUMMARY RPT | Continuity of Care Document ---
:1990 Author Organization [facility] Address [address] [place] [address] Phone Allergies No information. Encounters No information. Medications No information. Problems date description facility 20211023 Hypertension [facility] 20211023 Gestational [-induced] [facility] hypertension without significant proteinuria, third trimester [id number] Loss of Vision [facility] Results No information.
--- NOTE | 2021-11-02 00:49 | ED Physician Documentation ---
History of Present Illness - Stated complaint Stated Complaint: HIGH BP - Chief complaint Chief Complaint: Cardiac - History obtained from History obtained from: Patient - Additonal information Additional information: Patient is approximately 1 week post vaginal delivery presenting for evaluation of elevated blood pressure readings. Patient's has been complicated by preeclampsia with several recent admissions for blood pressures in the severe range requiring IV magnesium. Patient was actually discharged just late this afternoon. Patient has been feeling well through the afternoon. She took her medications as prescribed. She took her blood pressure at home 1 hour after taking her labetalol and her home machine had a systolic in the 200s. She called the on-call OB and was directed to the emergency department. She denies headache, visual disturbances, abdominal pain. 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 HEENT: None Psych: Depression, Panic attacks Musculoskeletal: None Derm: None - Past Surgical History Past Surgical History: Yes General: Hiatal hernia repair /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: Dilation and currettage - Present Medications Home Medications: Ambulatory Orders Medication Instructions Recorded Confirmed Fluoxetine HCl 60 mg PO DAILY #90 tablet 10/30/21 FLUoxetine [PROzac] 60 mg PO DAILY 11/01/21 Labetalol [Trandate] 200 mg PO TID tablet 11/01/21 NIFEdipine [Procardia Xl] 30 mg PO QPM tablet 11/01/21 NIFEdipine [Procardia Xl] 60 mg PO DAILY tablet 11/01/21 - Allergies Allergies/Adverse Reactions: Allergies Allergy/AdvReac Type Severity Reaction Status Date / Time No Known Drug Allergies Allergy Verified 11/02/21 00:03 - Social History Does the pt smoke?: No Smoking Status: Never smoker Does the pt drink ETOH?: Yes Does the pt have substance abuse?: Yes - Immunizations Immunizations are current?: Yes - POLST Patient has POLST: No PD ED PE NORMAL - General General: Alert and oriented X 3, No acute distress, Well developed/nourished - HEENT HEENT: Atraumatic, Moist mucous membranes, Pharynx benign - Neck Neck: Supple, no meningeal sign - Cardiac Cardiac: RRR, No murmur, Strong equal pulses - Respiratory Respiratory: No respiratory distress, Clear bilaterally - Abdomen Abdomen: Normal bowel sounds, Soft, Non tender - Derm Derm: Warm and dry - Extremities Extremities: No edema - Neuro Neuro: Alert and oriented X 3, No motor deficit, Normal speech - Psych Psych: Normal mood Results - Vitals Vitals: Vital Signs - 24 hr 11/01/21 11/01/21 11/01/21 23:42 23:58 23:59 Temperature 36.5 C Heart Rate 93 Respiratory 18 Rate Blood Pressure 158/111 H 158/111 H 128/101 H O2 Saturation 98 11/02/21 11/02/21 00:30 00:57 Temperature Heart Rate 95 Respiratory 16 Rate Blood Pressure 128/98 H 133/99 H O2 Saturation 98 Oxygen O2 Source Room air PD MEDICAL DECISION MAKING - ED course Complexity details: d/w patient, d/w insurance healthcare consultant ED course: Patient with history of preeclampsia presenting for evaluation of elevated blood pressure readings at home. Patient fortunately brought her home blood pressure machine which is a wrist cuff.Her home machine was consistently giving higher readings then the blood pressure monitor in the department. Manual blood pressure readings were also obtained on both arms and both were in the 120s. Patient again had no symptoms. The case was also reviewed with on- call OB who is familiar with the patient. Patient was cleared for discharge home with no medication adjustment. She was advised on obtaining a new blood pressure cuff and to check her blood pressure an hour after taking her medication. Patient is aware of strict return precautions. 1242 - Discussed with on-call OB, Reviewed Blood pressure readings. Okay for patient to go home with no medication adjustment. Patient is to obtain a new blood pressure cuff and to check her blood pressure tomorrow an hour after her medication. Departure - Departure Disposition: 01 Home, Self Care Clinical Impression: Elevated blood pressure reading Condition: Stable Instructions: Pressure Blood Take Comments: Berkley - You were evaluated tonight for high blood pressure readings at home.The machine you have appears to be giving higher readings than our Hospital monitors.Your blood pressure here was Within your goal range. Please continue taking your blood pressure medication as prescribed. Please get a new blood pressure machine, Perhaps 1 that goes around the upper arm. Please check your blood pressure an hour after taking your medication and write down the number. Please notify your OB doctor for abnormal readings or return to the emergency department. Please return to the emergency department if you develop any abnormal symptoms such as a headache, Abnormal vision, abdominal pain, any concerns. Discharge Date/Time: 11/02/21 00:57
[2021-11-02 00:58] VITALS: BP 133/99
== END 2021-11-02 00:57 | disposition home or self-care (01) ==
LOC: ED 23:34
DX: O16.5 Unspecified maternal hypertension, complicating the puerperium (principal)
CPT/HCPCS: 99281; 99282

== ENCOUNTER 2021-11-03 14:22 | Emergency (ER) | payer MEDICAID ==
--- OUTSIDE RECORDS SUMMARY | 2021-11-03 14:49 | EXTERNAL MEDICAL SUMMARY RPT | Continuity of Care Document ---
:1990 Author Organization [facility] Address [address] [place] [address] Phone Allergies No information. Encounters No information. Medications No information. Problems date description facility 20211023 Hypertension [facility] 20211023 Gestational [-induced] [facility] hypertension without significant proteinuria, third trimester [id number] Loss of Vision [facility] Results No information.
[2021-11-03 15:02] LABS: BASOPHILS % (AUTO) 0.5 %; EOSINOPHILS # (AUTO) 0.1 10^3/uL (0.0-0.7); EOSINOPHILS % (AUTO) 1.3 %; HCT - HEMATOCRIT 41.6 % (37.0-47.0); HGB - HEMOGLOBIN 13.9 g/dL (12.0-16.0); LYMPHOCYTES # (AUTO) 1.4 10^3/uL (1.5-3.5); LYMPHOCYTES % (AUTO) 16.8 %; MEAN CORPUSCULAR HEMOGLOBIN 31.1 pg (27.0-31.0); MEAN CORPUSCULAR HGB CONC 33.4 g/dL (32.0-36.0); MEAN CORPUSCULAR VOLUME 93.1 fL (81.0-99.0); MEAN PLATELET VOLUME 9.8 fL (7.9-10.8); MONOCYTES # (AUTO) 0.6 10^3/uL (0.0-1.0); MONOCYTES % (AUTO) 6.8 %; NEUTROPHILS # (AUTO) 6.2 10^3/uL (1.5-6.6); NEUTROPHILS % (AUTO) 74.2 %; PLT - PLATELET COUNT 246 10^3/uL (130-450); RED BLOOD COUNT 4.47 10^6/uL (4.20-5.40); RED CELL DISTRIBUTION WIDTH 13.2 % (12.0-15.0); WHITE BLOOD COUNT 8.3 x10^3/uL (4.8-10.8)
[2021-11-03] MEDS ORDERED: ALPRAZolam 0.25 MG TABLET PO STA (15:11)
[2021-11-03 15:15] LABS: ALBUMIN 4.2 g/dL (3.2-5.5); ALBUMIN/GLOBULIN RATIO 1.1 (1.0-2.2); CALCIUM 9.7 mg/dL (8.5-10.3); CREATININE 0.8 mg/dL (0.4-1.0); PHOSPHORUS 4.2 mg/dL (2.5-4.6); POTASSIUM 4.1 mmol/L (3.5-5.0)
--- NOTE | 2021-11-03 15:17 | ED Physician Documentation ---
History of Present Illness - Stated complaint Stated Complaint: WEAK,SOA - Chief complaint Chief Complaint: Resp - Additonal information Additional information: 30-year-old female presents to the emergency department for evaluation of her blood pressures and concerns that she is having a panic attack. She is approximately 9 days after a vaginal delivery to a premature . She did have preeclampsia and for management of that she is taking 300 mg of labetalol 3 times daily as well as 60 of nifedipine in the morning and 30 mg at sleep. Patient denies chest pain or shortness of air. She is had diarrhea for the last 4 days and feels very dehydrated. However she does report a longstanding history of anxiety which was typically managed with occasional Xanax prior to her . She states that her OB will not prescribe any Xanax and due to this she is having panic attacks. She is fearful that there is something seriously wrong with her and she refuses to stay alone with her baby in case something serious happens to her.She was seen in this emergency department in the [facility] the for concerns of elevated blood pressures. Patient is now checking her blood pressures only twice daily and typically reports they are about 130-140/80-90. She states that checking them more frequently causes her anxiety and panic She is denying any abdominal pain. Reports scant lochia. No fevers. No leg swelling. No seizure activity or headaches. Denies cough. Review of Systems Constitutional: denies: Fever, Chills Eyes: reports: Reviewed and negative Nose: reports: Reviewed and negative Throat: reports: Reviewed and negative Cardiac: reports: Reviewed and negative Respiratory: reports: Reviewed and negative GI: denies: Abdominal Pain, Nausea, Vomiting : reports: Reviewed and negative Skin: reports: Reviewed and negative Musculoskeletal: reports: Reviewed and negative Neurologic: reports: Reviewed and negative PD PAST MEDICAL HISTORY - Past Medical History Cardiovascular: None Respiratory: Asthma, Other Neuro: None Endocrine/Autoimmune: None GI: None 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: Other : None HEENT: None Psych: Depression, Panic attacks Musculoskeletal: None Derm: None - Past Surgical History Past Surgical History: Yes General: Hiatal hernia repair /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: Dilation and currettage - Present Medications Home Medications: Ambulatory Orders Medication Instructions Recorded Confirmed Fluoxetine HCl 60 mg PO DAILY #90 tablet 10/30/21 11/03/21 FLUoxetine [PROzac] 60 mg PO DAILY 11/01/21 11/03/21 Labetalol [Trandate] 200 mg PO TID tablet 11/01/21 11/03/21 NIFEdipine [Procardia Xl] 30 mg PO QPM tablet 11/01/21 11/03/21 NIFEdipine [Procardia Xl] 60 mg PO DAILY tablet 11/01/21 11/03/21 ALPRAZolam [Xanax] 0.25 mg PO Q6H PRN #10 tablet 11/03/21 - Allergies Allergies/Adverse Reactions: Allergies Allergy/AdvReac Type Severity Reaction Status Date / Time No Known Drug Allergies Allergy Verified 11/03/21 14:30 - Social History Does the pt smoke?: No Smoking Status: Never smoker Does the pt drink ETOH?: Yes Does the pt have substance abuse?: Yes - Immunizations Immunizations are current?: Yes - POLST Patient has POLST: No PD ED PE EXPANDED - General General: Alert, Anxious - Cardiac Cardiac: Regular Rate, Radial strong equal, Pedal strong equal, Cap refill < 2 sec, Other (No lower extremity edema calf pain tenderness noted). No: Murmur Present - Respiratory Respiratory: Clear to ausultation marily. No: Distress, Labored - Abdomen Abdomen: Normal Bowel sounds. No: Tender to palpation - Derm Derm: Normal color, Warm and dry. No: Rash - Extremities Extremities: Normal. No: Deformity, Tenderness - Neuro Neuro: Alert and Oriented X 3, CNII-XII intact - GCS Eye Opening: Spontaneous Motor: Obeys Commands Verbal: Oriented Total: 15 - Psych Psych: Tearful, Anxious (Hyperverbal). No: Suicidal, Homicidal Results - Vitals Vitals: Vital Signs - 24 hr 11/03/21 11/03/21 14:32 16:15 Temperature 37.0 C 37.1 C Heart Rate 92 80 Respiratory 19 16 Rate Blood Pressure 148/97 H 132/81 H O2 Saturation 97 98 Oxygen O2 Source Room air - Labs Labs: Laboratory Tests 11/03/21 11/03/21 11/03/21 14:57 14:57 15:10 WBC 8.3 RBC 4.47 Hgb 13.9 Hct 41.6 MCV 93.1 MCH 31.1 H MCHC 33.4 RDW 13.2 Plt Count 246 MPV 9.8 Neut # (Auto) 6.2 Lymph # (Auto) 1.4 L Cuming # (Auto) 0.6 Eos # (Auto) 0.1 Baso # (Auto) 0.0 Absolute Nucleated RBC 0.00 Nucleated RBC % 0.0 Sodium 137 Potassium 4.1 Chloride 103 Carbon Dioxide 22 Anion Gap 12.0 BUN 21 H Creatinine 0.8 Estimated GFR (MDRD) 84 L Glucose 120 H Calcium 9.7 Phosphorus 4.2 Magnesium 2.0 Total Bilirubin 2.0 H AST 21 ALT 26 Alkaline Phosphatase 76 Total Protein 8.0 Albumin 4.2 Globulin 3.8 Albumin/Globulin Ratio 1.1 Lipase 35 Urine Color DARK YELLOW Urine Clarity HAZY Urine pH 5.5 Ur Specific [place] >=1.030 H Urine Protein TRACE Urine Glucose (UA) NEGATIVE Urine Ketones NEGATIVE Urine Occult Blood LARGE H Urine Nitrite NEGATIVE Urine Bilirubin NEGATIVE Urine Urobilinogen 0.2 (NORMAL) Ur Leukocyte Esterase NEGATIVE Urine RBC TNTC H Urine WBC 4-5 Ur Squamous Epith Cells MANY Squamous H Urine Bacteria Few Urine Mucus Marked Strands Ur Microscopic Review INDICATED Urine Culture Comments NOT INDICATED - Rads (name of study) CXR Radiology: Final report received (No acute cardiopulmonary process) PD MEDICAL DECISION MAKING - ED course Complexity details: reviewed results, re-evaluated patient, d/w patient, d/w personal consultant (Juliet) ED course: 30-year-old female presents the emergency department for evaluation of her blood pressure as well as anxiety and worry. She is 9 days . She did develop preeclampsia. Her baby was born early and is being bottle/breast-fed. In order to manage her hypertension she has been taking nifedipine as well as labetalol. She has reasonably good control of her blood pressure here in the emergency department. Screening labs were without acute worrisome findings with preserved liver function test renal function. No proteinuria. Patient does have a longstanding history of anxiety which is managed with an SSRI as well as occasional Xanax prior to . With the diagnosis of pree clampsia patient has been excessively worried that she will have a major event resulting in her leaving her orphaned. She is afraid to be left alone with the infant in case that she should have a sudden event. She is tearful crying and appears to be having a panic attack. Here in the emergency department she was administered half a milligram of Xanax with good resolution of her symptoms. She is not having any thoughts of self- harm or harm to her infant. I did discuss this case briefly with the OB on- call. We will rosas a limited prescription of Xanax to the pharmacy. Patient feels better and feels safe going home. She will continue to follow-up with OB and continue to take her medications as already prescribed. Reassuringly she has no signs of heart failure and history is not suspicious for pulmonary embolus. Departure - Departure Disposition: Home, Self Care Clinical Impression: Anxiety Preeclampsia Qualifiers: Trimester: third trimester Qualified Code(s): O14.93 - Unspecified pre-eclampsi a, third trimester Condition: Stable Record reviewed to determine appropriate education?: Yes Prescriptions: ALPRAZolam [Xanax] 0.25 mg PO Q6H PRN #10 tablet PRN Reason: Anxiety Comments: Berkley you look fantastic. Your blood pressure medications are doing their job and your blood pressure is in good control. You do not have any signs of heart failure. I do believe that you have some significant anxiety contributing to your symptoms. I [facility] Take this very sparingly and use cautiously if you are breast-feeding. Please continue to follow-up with OB next week as you are scheduled.
--- NOTE | 2021-11-03 15:32 | XRAY Report ---
PROCEDURE: Chest 1 View X-Ray INDICATIONS: htn; post TECHNIQUE: One view of the chest was acquired. COMPARISON: Chest xray 11/22/20 FINDINGS: Surgical changes and devices: None. Lungs and pleura: No pleural effusions or pneumothorax. Lungs are clear. Mediastinum: Mediastinal contours appear normal. Heart size is normal. Bones and chest wall: No suspicious bony lesions. Overlying soft tissues appear unremarkable. IMPRESSION: No acute pulmonary process. Reviewed by: Loretta Guzman MD on 11/03/2021 3:31 PM PDT Approved by: Loretta Guzman MD on 11/03/2021 3:31 PM PDT Station ID: [id number]
[2021-11-03 15:37] LABS: BILIRUBIN,URINE NEGATIVE (NEGATIVE); GLUCOSE, URINE (UA) NEGATIVE (NEGATIVE); KETONES,URINE (UA) NEGATIVE (NEGATIVE); LEUKOCYTE ESTERASE, URINE NEGATIVE (NEGATIVE); NITRITE,URINE NEGATIVE (NEGATIVE); OCCULT BLOOD,URINE LARGE (NEGATIVE); PH,URINE 5.5 PH (5.0-7.5); PROTEIN,URINE TRACE mg/dL (NEGATIVE); UROBILINOGEN,URINE 0.2 (NORMAL) E.U./dL (NORMAL)
[2021-11-03 15:44] LABS: CLARITY,URINE HAZY (CLEAR)
[2021-11-03 16:07] LABS: BACTERIA,URINE Few /HPF (None Seen); MUCUS,URINE Marked Strands; RBC,URINE TNTC /HPF (0-5); SQUAMOUS EPITHELIAL CELL,UR MANY Squamous (<= Few)
[2021-11-03 17:41] VITALS: BP 130/82
== END 2021-11-03 17:41 | disposition home or self-care (01) ==
LOC: ED 14:22
DX: O15.2 Eclampsia complicating the puerperium (principal); O99.345 Other mental disorders complicating the puerperium; F41.9 Anxiety disorder, unspecified
CPT/HCPCS: 36415; 71045; 80053; 81001; 83690; 83735; 84100; 85025; 99283; 99284; A9270; 81003; 87086

== ENCOUNTER 2021-11-04 16:41 | Emergency (ER) | payer MEDICAID ==
--- OUTSIDE RECORDS SUMMARY | 2021-11-04 16:48 | EXTERNAL MEDICAL SUMMARY RPT | Continuity of Care Document ---
:1990 Author Organization [place] Address [address] [phone] Phone Allergies No information. Encounters No information. Medications No information. Problems date description facility [id number] Hypertension [facility] [id number] Gestational [-induced] [facility] hypertension without significant proteinuria, third trimester [id number] Loss of Vision [facility] Results No information.
--- NOTE | 2021-11-04 17:16 | ED Physician Documentation ---
History of Present Illness - Stated complaint Stated Complaint: HIGH BP - Chief complaint Chief Complaint: Cardiac - Additonal information Additional information: Berkley is a 30-year-old female that returns to the emergency department now 3 days in a row for concerns of elevated blood pressure. She was seen by my colleague back winder of the and by myself yesterday. She is now 10 days and had developed preeclampsia. She is on nifedipine and labetalol. She also has a fairly significant anxiety history. When seen yesterday her screening labs were good and after a dose of Xanax that she found that her blood pressure had improved. She felt comfortable going home with a short-term prescription for Xanax provided. Today the patient woke up and checked her blood pressure it was 158/105. This was before taking her a.m. meds. She went about her day and went shopping for formula. At 1 PM she returned home and after resting for 15 minutes checked her blood pressure found it was 170/120. She called OB on-call and they recommended that she repeat again in 15 minutes. And repeat it was 166/108 therefore she was advised to come to the ER. Currently her blood pressure is 145/105. She denies any chest pain, shortness of air, headache, nausea, vomiting or leg swelling. Patient endorses significant anxiety. She is extremely worried that her blood pressures are going to cause her to suddenly and she reached [facility] to be left alone with the child left she have an emergent event. She would like to see OB today in the emergency department. Patient states that she can tell when her blood pressure is high she feels tingling throughout her body. Review of Systems Constitutional: denies: Fever, Chills Eyes: reports: Reviewed and negative Nose: reports: Reviewed and negative Throat: reports: Reviewed and negative Cardiac: reports: Reviewed and negative Respiratory: reports: Reviewed and negative GI: reports: Reviewed and negative : reports: Reviewed and negative Skin: reports: Reviewed and negative Musculoskeletal: reports: Reviewed and negative Neurologic: reports: Reviewed and negative Psychiatric: reports: Anxiety PD PAST MEDICAL HISTORY - Past Medical History Cardiovascular: None Respiratory: Asthma, Other Neuro: None Endocrine/Autoimmune: None GI: None 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 HEENT: None Psych: Depression, Panic attacks Musculoskeletal: None Derm: None - Past Surgical History Past Surgical History: Yes General: Hiatal hernia repair /SOLAR ELECTRIC/PHOTOVOLTAIC INSTALLER: Dilation and currettage - Present Medications Home Medications: Ambulatory Orders Medication Instructions Recorded Confirmed Fluoxetine HCl 60 mg PO DAILY #90 tablet 10/30/21 11/04/21 FLUoxetine [PROzac] 60 mg PO DAILY 11/01/21 11/04/21 Labetalol [Trandate] 200 mg PO TID tablet 11/01/21 11/04/21 NIFEdipine [Procardia Xl] 30 mg PO QPM tablet 11/01/21 11/04/21 NIFEdipine [Procardia Xl] 60 mg PO DAILY tablet 11/01/21 11/04/21 ALPRAZolam [Xanax] 0.25 mg PO Q6H PRN #10 tablet 11/03/21 11/04/21 ALPRAZolam [Xanax] 0.5 mg PO BID PRN #6 tablet 11/04/21 - Allergies Allergies/Adverse Reactions: Allergies Allergy/AdvReac Type Severity Reaction Status Date / Time No Known Drug Allergies Allergy Verified 11/04/21 16:51 - Social History Does the pt smoke?: No Smoking Status: Never smoker Does the pt drink ETOH?: Yes Does the pt have substance abuse?: Yes - Immunizations Immunizations are current?: Yes - POLST Patient has POLST: No PD ED PE NORMAL - General General: Alert and oriented X 3, No acute distress, Well developed/nourished - HEENT HEENT: Atraumatic, Moist mucous membranes, Pharynx benign - Neck Neck: Supple, no meningeal sign, No adenopathy, Thyroid normal - Cardiac Cardiac: RRR, No murmur - Respiratory Respiratory: No respiratory distress, Clear bilaterally - Abdomen Abdomen: Normal bowel sounds, Soft - Back Back: No CVA TTP, No spinal TTP - Derm Derm: Normal color, Warm and dry, No rash - Extremities Extremities: No deformity, No tenderness to palpate, Normal ROM s pain - Neuro Neuro: Alert and oriented X 3, anesthesiology medical doctor 2-12 intact Eye Opening: Spontaneous Motor: Obeys Commands Verbal: Oriented GCS Score: 15 - Psych Psych: Normal mood Results - Vitals Vitals: Vital Signs - 24 hr 11/04/21 11/04/21 11/04/21 16:52 17:18 18:32 Temperature 36.8 C Heart Rate 87 80 82 Respiratory 18 13 16 Rate Blood Pressure 145/106 H 139/107 H 146/102 H O2 Saturation 98 97 98 11/04/21 11/04/21 19:19 21:10 Temperature Heart Rate 71 76 Respiratory 10 L 18 Rate Blood Pressure 131/87 H 120/100 H O2 Saturation 97 99 Oxygen O2 Source Room air - Labs Labs: Laboratory Tests 11/04/21 11/04/21 17:19 17:19 WBC 7.6 RBC 4.40 Hgb 13.2 Hct 40.8 MCV 92.7 MCH 30.0 MCHC 32.4 RDW 13.1 Plt Count 252 MPV 10.1 Neut # (Auto) 5.4 Lymph # (Auto) 1.5 Ford # (Auto) 0.4 Eos # (Auto) 0.1 Baso # (Auto) 0.0 Absolute Nucleated RBC 0.00 Nucleated RBC % 0.0 Sodium 138 Potassium 3.8 Chloride 105 Carbon Dioxide 21 Anion Gap 12.0 BUN 22 H Creatinine 0.8 Estimated GFR (MDRD) 84 L Glucose 105 H Calcium 9.9 Magnesium 1.9 Total Bilirubin 1.6 H AST 21 ALT 26 Alkaline Phosphatase 74 Total Protein 8.1 Albumin 4.2 Globulin 3.9 Albumin/Globulin Ratio 1.1 Lipase 37 Departure - Departure Disposition: Home, Self Care Clinical Impression: Anxiety about health Pre-eclampsia Qualifiers: Trimester: third trimester Qualified Code(s): O14.93 - Unspecified pre- eclampsia, third trimester Condition: Stable Record reviewed to determine appropriate education?: Yes Prescriptions: ALPRAZolam [Xanax] 0.5 mg PO BID PRN #6 tablet PRN Reason: Anxiety Comments: Wale you are seen today in the emergency department because you have had some elevated blood pressures at home after your . Though you did develop preeclampsia you do have some significant anxiety that is also contributing to the elevated pressures. Please continue the nifedipine and labetalol as already ordered. I am prescribing an additional 6 Xanax tablets to help you with your anxiety at home. Continue to follow-up with maternal- medicine as advised by OB. This has been sent to the [facility] in [place] Worrisome symptoms for elevated blood pressures or heart failure you and you would be sudden severe chest pain, shortness of breath, sudden severe headache or swelling in your lower extremities.
[2021-11-04 17:53] LABS: HCT - HEMATOCRIT 40.8 % (37.0-47.0); HGB - HEMOGLOBIN 13.2 g/dL (12.0-16.0); MEAN CORPUSCULAR HGB CONC 32.4 g/dL (32.0-36.0); MEAN CORPUSCULAR VOLUME 92.7 fL (81.0-99.0); RED CELL DISTRIBUTION WIDTH 13.1 % (12.0-15.0); WHITE BLOOD COUNT 7.6 x10^3/uL (4.8-10.8)
[2021-11-04 17:54] LABS: BASOPHILS % (AUTO) 0.5 %; EOSINOPHILS # (AUTO) 0.1 10^3/uL (0.0-0.7); EOSINOPHILS % (AUTO) 1.3 %; LYMPHOCYTES # (AUTO) 1.5 10^3/uL (1.5-3.5); LYMPHOCYTES % (AUTO) 20.1 %; MEAN PLATELET VOLUME 10.1 fL (7.9-10.8); MONOCYTES # (AUTO) 0.4 10^3/uL (0.0-1.0); MONOCYTES % (AUTO) 5.6 %; NEUTROPHILS # (AUTO) 5.4 10^3/uL (1.5-6.6); NEUTROPHILS % (AUTO) 72.1 %; PLT - PLATELET COUNT 252 10^3/uL (130-450)
[2021-11-04 18:00] LABS: ALBUMIN 4.2 g/dL (3.2-5.5); ALBUMIN/GLOBULIN RATIO 1.1 (1.0-2.2); BILIRUBIN,TOTAL 1.6 mg/dL (0.2-1.0); CALCIUM 9.9 mg/dL (8.5-10.3); CREATININE 0.8 mg/dL (0.4-1.0); MAGNESIUM 1.9 mg/dL (1.7-2.8); POTASSIUM 3.8 mmol/L (3.5-5.0); TOTAL PROTEIN 8.1 g/dL (6.7-8.2)
[2021-11-04 21:10] VITALS: BP 120/100
--- NOTE | 2021-11-04 21:39 | CONSULTATION NOTE ---
Referring Provider Consult Date: 11/04/21 Chief Complaint - Chief Complaint Chief Complaint: "high blood pressure" History of Present Illness - History of Present Illness HPI Comment/Other: Patient presents to the emergency department with reports of elevated blood pressures at home. She is postop day 10 status post delivery at [facility]. Since delivery she has been admitted for preeclampsia on 2 occasions and was mostly slightly discharged on 11/01. She denies chest pain shortness of breath or vision changes. She does report anxiety for which she was previously taking Xanax. She does report anxiety over her hypertension. She reports great family support. She reports her mood overall today was great as she enjoyed shopping with her mother. History - Past Medical History Cardiovascular: reports: Hypertension Respiratory: reports: Asthma, Other Neuro: reports: None Endocrine/Autoimmune: reports: None GI: reports: None TECHNOLOGIST INFECTIOUS DISEASE: reports: Other : reports: None HEENT: reports: None Psych: reports: Depression, Panic attacks Musculoskeletal: reports: None Derm: reports: None MRSA Hx?: No - Past Surgical History General: reports: Hiatal hernia repair /TECHNOLOGIST INFECTIOUS DISEASE: reports: Dilation and currettage - POLST Patient has POLST: No Meds/Allgy - Home Medications Home Medications: Ambulatory Orders Medication Instructions Recorded Confirmed Fluoxetine HCl 60 mg PO DAILY #90 tablet 10/30/21 11/04/21 FLUoxetine [PROzac] 60 mg PO DAILY 11/01/21 11/04/21 Labetalol [Trandate] 200 mg PO TID tablet 11/01/21 11/04/21 NIFEdipine [Procardia Xl] 30 mg PO QPM tablet 11/01/21 11/04/21 NIFEdipine [Procardia Xl] 60 mg PO DAILY tablet 11/01/21 11/04/21 ALPRAZolam [Xanax] 0.25 mg PO Q6H PRN #10 tablet 11/03/21 11/04/21 ALPRAZolam [Xanax] 0.5 mg PO BID PRN #6 tablet 11/04/21 - Allergies Allergies/Adverse Reactions: Allergies Allergy/AdvReac Type Severity Reaction Status Date / Time No Known Drug Allergies Allergy Verified 11/04/21 16:51 Review of Systems - Constitutional Constitutional: denies: Fever, Chills - Cardiovascular Cariovascular: denies: Chest pain Exam - Vital Signs Reviewed Vital Signs: Yes Vital Signs: Vital Signs x48h Temp Pulse Resp BP Pulse Ox 11/04/21 21:10 76 18 120/100 H 99 11/04/21 19:19 71 10 L 131/87 H 97 11/04/21 18:32 82 16 146/102 H 98 11/04/21 17:18 80 13 139/107 H 97 11/04/21 16:52 98.3 F 87 18 145/106 H 98 - Physical Exam General Appearance: positive: No acute distress Respiratory: positive: No respiratory distress, Breath sounds nml Cardiovascular: positive: Regular rate & rhythm Conclusion/Plan - Problem List (1) Preeclampsia Conclusion/Plan: 30-year-old G 13 P3 day 10 status post vaginal delivery at [facility]. The patient was diagnosed with preeclampsia prior to delivery. Since delivery she has been readmitted for preeclampsia and received magnesium sulfate for seizure prophylaxis. She has since been discharged with p.o. antihypertensives. She reports severe range blood pressures at home. She denies headaches vision changes or abdominal pain. She reports a great deal of anxiety regarding her diagnosis of preeclampsia. She does have adequate family support. Her blood pressures since presentation have been mild range. She reports prior discussion with her OB regarding cardiac work-up. This caused her a great deal of anxiety. I did discuss the possibility of cardiac work-up. For now she desires outpatient management. She has agreed to follow-up with M for evaluation of her preeclampsia. I also recommended that she follow-up with behavioral health as she had a previous diagnosis of anxiety for which she was taking Xanax. She is now status post prolonged blood pressure monitoring with mild range blood pressures noted. Her labs done yesterday were within normal limits. I recommend follow-up in 48 hours for blood pressure check. She was instructed to report severe range blood pressures or symptoms which include persistent headaches, vision changes or abdominal pain. Qualifiers: Trimester: third trimester Qualified Code(s): O14.93 - Unspecified pre- eclampsia, third trimester - Lab Results Lab results reviewed: Yes Fish Bones: 11/04/21 17:19 11/04/21 17:19
== END 2021-11-04 21:42 | disposition home or self-care (01) ==
LOC: ED 16:41
DX: O14.95 Unspecified pre-eclampsia, complicating the puerperium (principal)
CPT/HCPCS: 36415; 80053; 83690; 83735; 85025; 99282; 99283

== ENCOUNTER 2022-01-01 15:08 | Outpatient (CLI) | payer MEDICAID ==
[2022-01-01 15:27] LABS: BASOPHILS % (AUTO) 0.5 %; EOSINOPHILS # (AUTO) 0.1 10^3/uL (0.0-0.7); EOSINOPHILS % (AUTO) 1.2 %; HCT - HEMATOCRIT 40.5 % (37.0-47.0); HGB - HEMOGLOBIN 13.5 g/dL (12.0-16.0); LYMPHOCYTES # (AUTO) 2.4 10^3/uL (1.5-3.5); LYMPHOCYTES % (AUTO) 28.2 %; MEAN CORPUSCULAR HEMOGLOBIN 30.7 pg (27.0-31.0); MEAN CORPUSCULAR HGB CONC 33.3 g/dL (32.0-36.0); MEAN PLATELET VOLUME 10.1 fL (7.9-10.8); MONOCYTES # (AUTO) 0.4 10^3/uL (0.0-1.0); NEUTROPHILS # (AUTO) 5.6 10^3/uL (1.5-6.6); NEUTROPHILS % (AUTO) 64.8 %; PLT - PLATELET COUNT 271 10^3/uL (130-450); RED CELL DISTRIBUTION WIDTH 13.7 % (12.0-15.0); WHITE BLOOD COUNT 8.7 x10^3/uL (4.8-10.8)
== END 2022-01-01 15:09 | disposition home or self-care (01) ==
LOC: LAB 15:08
PROVIDERS: ATTEND Obstetrics & Gynecology
DX: Z01.812 Encounter for preprocedural laboratory examination (principal)
CPT/HCPCS: 36415; 85025; 86850; 86900; 86901

== ENCOUNTER 2022-01-02 08:45 | Day surgery (SDC) | payer MEDICAID ==
[2022-01-02] MEDS ORDERED: LACTATED RINGERS 1,000 ML IV ONE (09:14)
[2022-01-02 09:20] LABS: HCG UR QUAL NEGATIVE
[2022-01-02] MEDS ORDERED: LIDOCAINE 2%-EPI 1:100000 20 ML MDV ONE (09:53)
[2022-01-02] MEDS ORDERED: BUPIVACAINE 0.5% PF 30 ML VIAL ONE ×2 (09:54→10:04)
[2022-01-02] MEDS ORDERED: PROPOFOL 200 MG/20 ML VIAL IVP ONE (09:55)
[2022-01-02] MEDS ORDERED: ROCURONIUM 50 MG/5 ML VIAL ONE (09:55)
[2022-01-02] MEDS ORDERED: LIDOCAINE-MPF 2% 5 ML VIAL ONE (09:55)
[2022-01-02] MEDS ORDERED: fentaNYL 100 MCG/2 ML VIAL ONE ×2 (09:56→11:39)
[2022-01-02] MEDS ORDERED: MIDAZOLAM 2 MG/2 ML VIAL ONE (09:58)
[2022-01-02] MEDS ORDERED: ONDANSETRON 4 MG/2 ML VIAL ONE (10:01)
[2022-01-02] MEDS ORDERED: DEXAMETHASONE 4 MG/ML VIAL ONE (10:01)
[2022-01-02] MEDS ORDERED: diphenhydrAMINE INJ 50 MG/ML VIAL ONE (10:02)
[2022-01-02] MEDS ORDERED: BUPIVACAINE 0.5% PF 30 ML VIAL INFIL ONE ×2 (10:53)
[2022-01-02] MEDS ORDERED: LIDOCAINE MPF 1%-EPI 1:200000 30 ML VIAL SUBQ ONE ×2 (10:53)
--- NOTE | 2022-01-02 11:06 | ANESTHESIA ---
Pre-Anesthesia VS, & Labs Height: 5 ft 3 in Weight (kg): 95.5 kg Body Mass Index: 37.3 BMI Classification: Obese <Amena Vogt - Last Filed: 01/02/22 11:05> - NPO >8 hours - Is Patient ?: No <Justine Rodriguez - Last Filed: 01/02/22 11:44> - Diagnosis Desires Sterilzation (Amena Vogt) - Procedure Laparoscopic Salpingectomy (Justine Rodriguez) Vital Signs: Temp Pulse Resp BP Pulse Ox 36.4 C L 97 18 117/82 H 98 01/02/22 11:25 01/02/22 11:25 01/02/22 11:25 01/02/22 11:25 01/02/22 11:25 Home Medications and Allergies <Amena Vogt - Last Filed: 01/02/22 11:05> <Justine Rodriguez - Last Filed: 01/02/22 11:44> Home Medications: Ambulatory Orders FLUoxetine [PROzac] 80 mg PO DAILY 01/01/22 Active Medications Hydrocodone Bitart/Acetaminophen (Hydrocod/Acetam 5/325 Mg Tablet) 1 tab PO Q4HR PRN PRN Reason: PAIN Atropine Sulfate (Atropine Abboject 1 Mg/10 Ml Syringe) 0.5 mg IVP Q5M PRN PRN Reason: Bradycardia Stop: 01/03/22 11:21 Ephedrine Sulfate (Ephedrine 50 Mg/Ml Vial) 10 mg IVP Q5M PRN PRN Reason: HYPOTENSION Stop: 01/03/22 11:21 Fentanyl (Fentanyl 100 Mcg/2 Ml Vial) 25 - 50 mcg IVP Q5M PRN PRN Reason: BREAKTHROUGH PAIN (2nd Choice) Stop: 01/03/22 11:21 Last Admin: 01/02/22 11:25 Dose: 50 mcg Hydromorphone HCl (Hydromorphone 0.5 Mg/0.5 Ml Syringe) 0.2 - 0.6 mg IVP Q5M PRN PRN Reason: PAIN (First Choice) Stop: 01/03/22 11:21 Lactated Ringer's (Lr) 1,000 mls @ 100 mls/hr IV .Q10H SARA Stop: 01/02/22 21:59 Morphine Sulfate (Morphine 2 Mg/Ml Carpuject) 2 - 4 mg IVP Q5M PRN PRN Reason: PAIN (3rd Choice) Stop: 01/03/22 11:21 Naloxone HCl (Naloxone 0.4 Mg/Ml Vial) 0.1 mg IVP Q2M PRN PRN Reason: RESP RATE <8 Stop: 01/03/22 11:21 Ondansetron HCl (Ondansetron 4 Mg/2 Ml Vial) 4 mg IVP ONCE PRN PRN Reason: N/V (First Choice) Stop: 01/03/22 11:21 Last Admin: 01/02/22 11:31 Dose: 4 mg FLUoxetine [PROzac] 80 mg PO DAILY 01/01/22 Allergies/Adverse Reactions: Allergies Allergy/AdvReac Type Severity Reaction Status Date / Time No Known Drug Allergies Allergy Verified 11/04/21 16:51 Anes History & Medical History - Medical History Cardiovascular: reports: Hypertension, Other Pulmonary: reports: None Gastrointestinal: reports: GERD Urinary: reports: None Neuro: reports: None Musculoskeletal: reports: None Endocrine/Autoimmune: reports: Other Blood Disorders: reports: None Skin: reports: None Smoking Status: Never smoker - Surgical History General: reports: Other Eyes Ears Nose Throat (EENT): Gynecologic: reports: Dilation and currettage <Amena Vogt - Last Filed: 01/02/22 11:05> - Anesthetic History Anesthesia Complications: reports: No previous complications, Difficult airway. denies: Slow wake-up Family history of Anesthesia Complications: Denies Family history of Malignant Hyperthermia: Denies - Medical History Psychosocial: reports: Anxiety History of Cancer?: No - Surgical History Gynecologic: reports: Other (8 weeks post ) <Justine Rodriguez M - Last Filed: 01/02/22 11:44> Exam General: Alert, Oriented x3, Cooperative, No acute distress Dental: WNL Mouth Openin Fingerbreadth Neck Mobility: Normal Mallampati classification: II Thyromental Distance: 4-6 cm Respiratory: Lungs clear, Normal breath sounds, No respiratory distress, No accessory muscle use Cardiovascular: Regular rate, Normal S1, Normal S2, No murmurs Mental/Cognitive Status: Alert/Oriented X3, Normal for patient Cognitive Status: Within normal limits <Justine Rodriguez - Last Filed: 01/02/22 11:44> Plan Anesthesia Type: General Consent for Procedure(s) Verified and Reviewed: Yes Code Status: Attempt Resuscitation ASA classification: 2-Mild systemic disease Is this case an emergency?: No <Justine Rodriguez - Last Filed: 01/02/22 11:44>
[2022-01-02] MEDS ORDERED: SUGAMMADEX 200 MG/2 ML VIAL IVP ONE (11:20)
[2022-01-02] MEDS ORDERED: HYDROmorphone 0.5 MG/0.5 ML SYRINGE IVP PRN (11:21)
[2022-01-02] MEDS ORDERED: fentaNYL 100 MCG/2 ML VIAL IVP PRN (11:21)
[2022-01-02] MEDS ORDERED: ePHEDrine 50 MG/ML VIAL IVP PRN (11:21)
[2022-01-02] MEDS ORDERED: MORPHINE 2 MG/ML CARPUJECT IVP PRN (11:21)
[2022-01-02] MEDS ORDERED: ATROPINE ABBOJECT 1 MG/10 ML SYRINGE IVP PRN (11:21)
[2022-01-02] MEDS ORDERED: ONDANSETRON 4 MG/2 ML VIAL IVP PRN (11:21)
[2022-01-02] MEDS ORDERED: NALOXONE 0.4 MG/ML VIAL IVP PRN (11:21)
[2022-01-02] MEDS ORDERED: LACTATED RINGERS 800 ML IV ONE (11:24)
[2022-01-02] MEDS ORDERED: HYDROcod/ACETAM 5/325 MG TABLET PO PRN (11:25)
--- NOTE | 2022-01-02 11:25 | OPERATIVE REPORT ---
Operative Report - General Procedure Date: 01/02/22 Planned Procedure: Laparoscopic bilateral salpingectomy Pre-Op Diagnosis: Desires sterility Procedure Performed: Laparoscopic bilateral salpingectomy Post Op Diagnosis: Desires sterility - Procedure Note Primary Surgeon: Stewart Payne MD Secondary Surgeon: EUSEBIA Oliver Anesthesia Provider: YAN Lyons Anesthesia Technique: General ET tube Pathology: Bilateral fallopian tubes IV Fluids (mL): 1,100 Estimated Blood Loss (mL): 5 Urine Output (mL): 100 Complications: None - Other Other Information/Narrative: Patient was taken to the OR and placed in the dorsal lithotomy position using Yellofin stirrups after adequate anesthesia was obtained. Patient was prepped and draped in the usual fashion. A bivalve speculum was used to visualize the cervix and 4 mL of 2% lidocaine with epinephrine was used to perform a cervical block, and a HUMI uterine manipulator was placed. She was menstruating at the time of surgery. 2 mL of 2% lidocaine with was used at Blum's point approximately 2 cm below the inferior costal margin in the midclavicular line as she had a previous umbilical hernia repair with mesh and there was concern over adhesions. An 11 blade scalpel was used to incise the skin. Direct visual entry was used to place the trocar. Upon entering the peritoneal cavity, low flow was used to ensure appropriate positioning. Upon visualization of the abdominal cavity, high flow was then initiated. 2 additional trocars was placed under visualization in a similar fashion in the right and left lower quadrants. Bilateral ovaries were normal in appearance. After visualization of the left fallopian tube, it was grasped with an atraumatic grasper. The mesosalpinx was cauterized and cut with a Ligasure device. Attention was then turned to the right fallopian tube which was then removed in a similar fashion. The abdomen was reviewed for hemostasis, and a healthy-appearing liver was noted. The trocars were then removed, and abdomen was evacuated of gas. The trocar sites were then closed with a 4-0 Monocryl in a sub-cuticular fashion and covered with Dermabond. Patient was taken to the PACU in stable condition.
--- NOTE | 2022-01-02 11:57 | ANESTHESIA POST OP EVALUATION ---
Anesthesia Post Eval - Post Anesthesia Eval Vitals: Last Vital Signs Temp 36.1 C L 01/02/22 11:52 Pulse 65 01/02/22 11:52 Resp 14 01/02/22 11:52 BP 127/82 H 01/02/22 11:52 Pulse Ox 96 01/02/22 11:52 CV Function Including HR & BP: Stable Pain Control: Satisfactory Nausea & Vomiting: Negative Mental Status: Baseline Respiratory Status: Airway Patent Hydration Status: Satisfactory Anesthesia Complications: None
[2022-01-02] MEDS ORDERED: LACTATED RINGERS 1,000 ML IV SCH (12:00)
[2022-01-02 12:58] VITALS: BP 125/77
== END 2022-01-02 08:46 | disposition home or self-care (01) ==
LOC: SDS 08:45
PROVIDERS: ATTEND Obstetrics & Gynecology
PROC: 0UT74ZZ Resection of Bilateral Fallopian Tubes, Percutaneous Endoscopic Approach (ICD-10-PCS; principal; 2022-01-02 09:45)
DX: Z30.2 Encounter for sterilization (principal); I10 Essential (primary) hypertension; F41.9 Anxiety disorder, unspecified
CPT/HCPCS: 58661; 81025; J1200; J7120

== ENCOUNTER 2022-07-14 06:41 | Outpatient (CLI) | payer MEDICAID | END 2022-07-14 06:42 | disposition EMS.NT | LOC: EMS 06:41 | DX: R07.89 Other chest pain (principal); R06.02 Shortness of breath ==

== ENCOUNTER 2022-10-19 11:45 | Outpatient (CLI) | payer MEDICAID ==
--- NOTE | 2022-10-20 19:05 | Ultrasound Report ---
PROCEDURE: Pelvic w/Transvaginal INDICATIONS: ABNL UTERINE BLEEDING TECHNIQUE: Real-time scanning was performed of the pelvic organs, with image documentation. Additional endovagi nal scanning was necessary due to incomplete visualization of the adnexal and endometrial structures by transabdominal scanning. COMPARISON: OB ultrasound 425 2, CT abdomen pelvis 07/12/2016 FINDINGS: Uterus: Uterus is anteverted and normal in size at 7.6 x 4.7 x 6.0 cm. The myometrium is homogeneou s. The endometrium measures 6.2 mm in combined thickness. There is a focus of echogenicity within t he endometrium measuring approximately 6 mm. Ovaries: The right ovary measures 2.0 x 2.6 x 3.1 cm, with a calculated ovarian volume of 8.3 cc. T he left ovary measures 3.4 x 1.8 x 3.5 cm, with a calculated ovarian volume of 10.8 cc. 1.3 x 1.0 x 1 .5 cm complex focus within the right ovary. Heterogeneous echogenicity within the left adnexa measuri ng 2.1 x 2.1 x 2.0 cm. It is slightly increased compared to 1.7 cm in 2017. Other: No pathologic free abdominal or pelvic fluid. IMPRESSION: Suspected involuting hemorrhagic right ovarian cyst. Focus of echogenicity within the left ovary slightly enlarged and consistent with previous identified teratoma. 6 mm new focus of echogenicity within the endometrium possibly related to polyp. Reviewed by: Loretta Guzman MD on 10/20/2022 7:04 PM PDT Approved by: Loretta Guzman MD on 10/20/2022 7:04 PM PDT Station ID: [id number]
== END 2022-10-19 23:59 | disposition home or self-care (01) ==
LOC: DI 11:45
PROVIDERS: ATTEND Nurse Practitioner
DX: N93.9 Abnormal uterine and vaginal bleeding, unspecified (principal)

== ENCOUNTER 2023-03-08 08:31 | Outpatient (CLI) | payer MEDICAID ==
--- NOTE | 2023-03-08 12:01 | Mammography Report ---
BILATERAL DIGITAL DIAGNOSTIC MAMMOGRAM 3D/2D WITH EXAGGERATED CC: 03/08/2023 CLINICAL: Baseline exam. Palpable right breast lump. Intermittent pain in right breast. No prior exams were available for comparison. Both breasts are heterogeneously dense, which may obscure small masses (category c / 51-75% glandular tissue). No significant masses, calcifications, or other findings are seen in either breast. IMPRESSION: INCOMPLETE: NEEDS ADDITIONAL IMAGING EVALUATION There is no abnormality seen in the right breast to correspond with the area of clinical concern and palpable abnormality indicated by triangular marker in the posterior depth in the upper outer quadran t, however, an ultrasound is recommended for further evaluation and is scheduled to immediately follo w this examination. Based on the Tyrer Cuzick model (a risk assessment model) the patients lifetime risk is 9.7% and her 10 year risk is 0.5%. According to the ACR, ACS, and NCCN guidelines, an annual breast MRI exam felipa g with mammogram is recommended if the patients lifetime risk is 20% or greater. This exam was interpreted at Station ID: [id number]. NOTE: For mammograms, a report in lay terms will be sent to the patient. Approximately 15% of breast malignancies will not be visualized mammographically. In the management of a palpable breast mass, a negative mammogram must not discourage biopsy of a clinically suspicious lesion. Electronically Signed By: Joon Lambert M.D. aty/:03/08/2023 09:27:42 ACR BI-RADS Category 0: Incomplete 3340F PARENCHYMAL PATTERN: (D) - The breast(s) demonstrate(s) heterogeneously dense fibroglandular aileen solo. BI-RADS CATEGORY: (0) - 0 Ultrasound [id number] Immediate follow-up LATERALITY: (R)
--- NOTE | 2023-03-08 12:01 | Ultrasound Report ---
LIMITED ULTRASOUND OF RIGHT BREAST: 03/08/2023 CLINICAL: Palpable right breast lump. Comparison is made to exam dated: 03/08/2023 mammogram - [facility]. Color flow and real-time ultrasound of the right breast 9 o'clock region were performed. Sexton scale images of the real-time examination were reviewed. No significant abnormalities were seen sonographically in the right breast. IMPRESSION: NEGATIVE There is no sonographic evidence of malignancy. There is no abnormality seen in the right breast to correspond with the area of clinical concern and palpable abnormality at 9 o'clock, however, recommend clinical follow up for persistent or worsening symptoms, or development of any clinically suspicious findings. Recommend initiating routine screening mammograms at age 39. Findings and recommendations were conveyed to the patient during today's evaluation. This exam was interpreted at Station ID: [id number]. Electronically Signed By: Joon Lambert M.D. aty/:03/08/2023 09:40:32 Ultrasound BI-RADS: 1 Negative BI-RADS CATEGORY: (1) - 1 RECOMMENDATION: (ADDMAM) - Recommend additional mammographic views. recall n/a LATERALITY: (B)
== END 2023-03-08 08:32 | disposition home or self-care (01) ==
LOC: DI 08:31
PROVIDERS: ATTEND Nurse Practitioner
DX: N64.4 Mastodynia (principal); N63.0 Unspecified lump in unspecified breast

== ENCOUNTER 2023-03-30 22:28 | Outpatient (CLI) | payer MEDICAID, OTHER | END 2023-03-30 23:59 | disposition critical access hospital (66) | LOC: EMS 22:28 | DX: R07.9 Chest pain, unspecified (principal); F41.9 Anxiety disorder, unspecified | CPT/HCPCS: A0425; A0429 ==

== ENCOUNTER 2023-03-30 22:50 | Emergency (ER) | payer MEDICAID, OTHER ==
--- NOTE | 2023-03-30 22:46 | ED Physician Documentation ---
History of Present Illness - Stated complaint Stated Complaint: ETOH/YE - History obtained from History obtained from: Patient, EMS, Police - Additonal information Additional information: BIBA. Patient is currently under arrest. En route to assisted, the patient was complaining of chest pain and thus police contacted EMS who bring patient to ED for evaluation of her chest pain. Patient tells me that she feels very anxious given the circumstances and she suspects that her chest pain is due to the anxiety. Patient has no known cardiac history. The pain did not start until she was placed under arrest. She says that discomfort is across her anterior chest and does not radiate. Denies shortness of breath. Review of Systems Cardiac: reports: Chest pain / pressure Respiratory: denies: Dyspnea PD PAST MEDICAL HISTORY - Present Medications Home Medications: Ambulatory Orders Medication Instructions Recorded Confirmed Semaglutide [Ozempic] 1 ea SQ 03/30/23 - Allergies Allergies/Adverse Reactions: Allergies Allergy/AdvReac Type Severity Reaction Status Date / Time No Known Drug Allergies Allergy Verified 03/30/23 23:14 PD ED PE NORMAL - Vitals Vital signs reviewed: Yes - General General: Alert and oriented X 3, No acute distress, Well developed/nourished PD ED PE EXPANDED - HEENT HEENT Visual: 1 - abrasion (superficial abrasion to mucosal aspect of upper lip; no lacerat ion, no dental tenderness nor laxity) 2 - abrasion (superficial abrasion to mucosal aspect of lower lip; no laceration, no dental tenderness nor laxity) Results - Vitals Vitals: Vital Signs - 24 hr 03/30/23 03/30/23 23:02 23:48 Temperature 36.8 C Heart Rate 105 H Respiratory 22 20 Rate Blood Pressure 129/83 H O2 Saturation 95 Oxygen O2 Source Room air - EKG (time done) No standard instances EKG releavant findings:: EKG personally interpreted by author of this note. Relevant findings are: Rate: Rate (enter#) (100) Rhythm: Sinus tachycardia [place]: Normal Intervals: Normal [place] QRS: Normal Ischemia: Normal ST segments PD Medical Decision Making - ED course Complexity details: considered differential, d/w patient ED course: A screening EKG is performed and there are no abnormalities on this EKG. Patient does not have any cardiac risk factors nor known cardiac problems. No further testing is indicated at this time. She is cleared for confinement. Departure - Departure Disposition: 01 Home, Self Care Clinical Impression: Atypical chest pain Condition: Good Instructions: ED Chest Pain Atypical Unkn Cause Comments: There were no concerning nor diagnostic findings on roverto's screening EKG. I do not think there is any serious cause of your chest discomfort at this time. Certainly, if the symptoms persist or worsen, you can return to the emergency department or else follow-up with your primary care provider for consideration of further testing. Forms: PCP List Discharge Date/Time: 03/30/23 23:50
[2023-03-30 23:14] VITALS: BP 129/83; O2SAT 95
== END 2023-03-30 23:50 | disposition home or self-care (01) ==
LOC: EDUNIT# → ED 22:50
DX: R07.89 Other chest pain (principal); S00.511A Abrasion of lip, initial encounter; Y04.2XXA Assault by strike against or bumped into by another person, initial encounter; Y93.89 Activity, other specified
CPT/HCPCS: 93005; 99283

== ENCOUNTER 2023-07-31 13:17 | Emergency (ER) | payer MEDICAID, OTHER ==
--- NOTE | 2023-07-31 13:35 | ED Physician Documentation ---
History of Present Illness - Stated complaint Stated Complaint: COUGH,BODYACHE,CHILLS - Chief complaint Chief Complaint: General - History obtained from History obtained from: Patient - Additonal information Additional information: 32-year-old with history of hypertension developed a sore throat yesterday and today she "feels like ." With body aches, runny nose, cough with productive green sputum and severe fatigue. Her son was recently ill but not nearly as sick as she is. She did get a flu shot in the fall. PD PAST MEDICAL HISTORY - Past Medical History Past Medical History: Yes Cardiovascular: Hypertension, Other Respiratory: None Neuro: None Endocrine/Autoimmune: Other GI: GERD CLINICAL OPERATIONS LEADER: Other : None HEENT: Chronic vision loss Psych: Depression, Anxiety, Panic attacks Musculoskeletal: None Derm: None - Past Surgical History Past Surgical History: Yes General: Other /CLINICAL OPERATIONS LEADER: Other HEENT:  - Present Medications Home Medications: Ambulatory Orders Medication Instructions Recorded Confirmed DULoxetine [Cymbalta] 30 mg PO DAILY 07/31/23 07/31/23 HYDROcod/ACET 5/325 Prepack 4 1 tab PO Q6HR PRN 07/31/23 07/31/23 [NORCO 5/325 Prepack 4] Oseltamivir [Tamiflu] 75 mg PO BID #10 cap 07/31/23 - Allergies Allergies/Adverse Reactions: Allergies Allergy/AdvReac Type Severity Reaction Status Date / Time No Known Drug Allergies Allergy Verified 07/31/23 13:23 - Social History Does the pt smoke?: No Smoking Status: Never smoker Does the pt drink ETOH?: Yes Does the pt have substance abuse?: Yes - Immunizations Immunizations are current?: Yes - POLST Patient has POLST: No PD ED PE NORMAL - Vitals Vital signs reviewed: Yes - General General: No acute distress, Well developed/nourished - HEENT HEENT: Other (Redness of the tonsillar pillars without) - Neck Neck: Supple, no meningeal sign, No bony TTP - Cardiac Cardiac: No murmur, Other ( exudates or swelling mild resting tachycardia but regular without murmur) - Respiratory Respiratory: No respiratory distress, Clear bilaterally - Abdomen Abdomen: Non tender - Derm Derm: No rash - Neuro Neuro: Alert and oriented X 3, Normal speech Results - Vitals Vitals: Vital Signs - 24 hr 07/31/23 07/31/23 13:19 15:23 Temperature 37.4 C 36.9 C Heart Rate 115 H 97 Respiratory 18 16 Rate Blood Pressure 151/99 H 139/90 H O2 Saturation 98 99 Oxygen O2 Source Room air - Labs Labs: Laboratory Tests 07/31/23 13:28 Nasal Adenovirus (PCR) NOT DETECTED Nasal B. parapertussis DNA (PCR) NOT DETECTED Nasal Coronavir 229E PCR NOT DETECTED Nasal Coronavir HKU1 PCR NOT DETECTED Nasal Coronavir NL63 PCR NOT DETECTED Nasal Coronavir OC43 PCR NOT DETECTED Nasal Enterovir/Rhinovir PCR NOT DETECTED Nasal Influ A H1 2009 PCR DETECTED A Nasal Influenza B PCR NOT DETECTED Nasal Parainfluen 1 PCR NOT DETECTED Nasal Parainfluen 2 PCR NOT DETECTED Nasal Parainfluen 3 PCR NOT DETECTED Nasal Parainfluen 4 PCR NOT DETECTED Nasal RSV (PCR) NOT DETECTED Nasal B.pertussis DNA PCR NOT DETECTED Nasal C.pneumoniae (PCR) NOT DETECTED [place] Human Metapneumo PCR NOT DETECTED Nasal M.pneumoniae (PCR) NOT DETECTED Nasal SARS-CoV-2 (PCR) NOT DETECTED PD Medical Decision Making - ED course ED course: 32-year-old woman with viral syndrome and found positive for influenza A. Feeling better after Toradol and IV fluids. Departure - Departure Disposition: 01 Home, Self Care Clinical Impression: Influenza A Condition: Good Record reviewed to determine appropriate education?: Yes Instructions: ED Flu, Medication: Tamiflu (Oseltamivir) Prescriptions: Oseltamivir [Tamiflu] 75 mg PO BID #10 cap Comments: [facility] [place]. You are positive for influenza A which explains your symptoms. We are prescribing Tamiflu to help it go away faster. In addition to that drink plenty of fluids and you can take Tylenol and/or ibuprofen for the aches and pains and fevers and chills. Get plenty of rest. Return if worsening. Forms: Activity restrictions Discharge Date/Time: 07/31/23 15:26
[2023-07-31] MEDS: SODIUM CHLORIDE 0.9% 1,000 ML IV STA (13:53)
[2023-07-31] MEDS: KETOROLAC 15 MG/ML VIAL IVP STA (13:54)
[2023-07-31 14:33] LABS: CORONAVIRUS 229E-RESP PCR NOT DETECTED; CORONAVIRUS HKU1-RESP PCR NOT DETECTED; CORONAVIRUS NL63-RESP PCR NOT DETECTED; CORONAVIRUS OC43-RESP PCR NOT DETECTED; HUMAN METAPNEUMOVIRUS NOT DETECTED; INFLUENZA A H1 2009- RESP PCR DETECTED; RHINOVIRUS/ENTEROVIRUS NOT DETECTED; SARS-CoV-2 -RESP PCR PANEL NOT DETECTED
[2023-07-31 14:34] LABS: B. PARAPERTUSSIS- RESP PCR PAN NOT DETECTED; B. PERTUSSIS- RESP PCR PANEL NOT DETECTED; C. PNEUMONIAE- RESP PCR PANEL NOT DETECTED; INFLUENZA B - RESP PCR PANEL NOT DETECTED; M. PNEUMONIAE- RESP PCR PANEL NOT DETECTED; PARAINFLUENZA VIRUS 1 NOT DETECTED; PARAINFLUENZA VIRUS 2 NOT DETECTED; PARAINFLUENZA VIRUS 3 NOT DETECTED; PARAINFLUENZA VIRUS 4 NOT DETECTED; RSV- RESP PCR PANEL NOT DETECTED
[2023-07-31] MEDS: OSELTAMIVIR 75 MG CAPSULE PO STA (15:18)
[2023-07-31 15:30] VITALS: BP 139/90; O2SAT 99
== END 2023-07-31 15:26 | disposition home or self-care (01) ==
LOC: ED 13:17
DX: J10.1 Influenza due to other identified influenza virus with other respiratory manifestations (principal); I10 Essential (primary) hypertension; Z11.52 Encounter for screening for COVID-19
CPT/HCPCS: 87633; 96374; 99283; A9270

== ENCOUNTER 2023-08-01 15:04 | Emergency (ER) | payer MEDICAID ==
[2023-08-01] MEDS: ONDANSETRON 4 MG/2 ML VIAL IVP STA (15:33)
--- NOTE | 2023-08-01 15:33 | ED Physician Documentation ---
History of Present Illness - Stated complaint Stated Complaint: UPPER ABD PX, N/V - History obtained from History obtained from: Patient - Additonal information Additional information: She has known gallstones and is scheduled actually for a cholecystectomy on the of this month at [facility]. I saw her yesterday for influenza A and she is feeling better from that perspective, but an hour ago developed severe right upper quadrant pain consistent with prior episodes of biliary colic. 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: Other HEENT:  - Present Medications Home Medications: Ambulatory Orders Medication Instructions Recorded Confirmed DULoxetine [Cymbalta] 30 mg PO DAILY 07/31/23 08/01/23 HYDROcod/ACET 5/325 Prepack 4 1 tab PO Q6HR PRN 07/31/23 08/01/23 [NORCO 5/325 Prepack 4] Ondansetron Odt [Zofran] 4 mg TL Q6H PRN #10 tablet 07/31/23 08/01/23 Oseltamivir [Tamiflu] 75 mg PO BID #10 cap 07/31/23 08/01/23 HYDROcod/ACETAM 5/325 [[place] 5/325] 1 - 2 tab PO Q6H PRN #15 tablet 08/01/23 - Allergies Allergies/Adverse Reactions: Allergies Allergy/AdvReac Type Severity Reaction Status Date / Time No Known Drug Allergies Allergy Verified 08/01/23 15:21 - Social History Does the pt smoke?: No Smoking Status: Never smoker Does the pt drink ETOH?: Yes Does the pt have substance abuse?: Yes - Immunizations Immunizations are current?: Yes - POLST Patient has POLST: No PD ED PE NORMAL - Vitals Vital signs reviewed: Yes - General General: Alert and oriented X 3, Other (She is bent over, obviously in extreme pain.) - Abdomen Abdomen: Other (Minimal right upper quadrant tenderness without surgical signs.) - Neuro Neuro: Alert and oriented X 3, Normal speech Results - Vitals Vitals: Vital Signs - 24 hr 02/08/24 15:11 Temperature 35.8 C L Heart Rate 141 H Respiratory 24 Rate Blood Pressure 147/108 H O2 Saturation 100 Oxygen O2 Source Room air - Labs Labs: Laboratory Tests 08/01/23 08/01/23 15:30 15:30 WBC 5.5 RBC 4.67 Hgb 14.0 Hct 42.4 MCV 90.8 MCH 30.0 MCHC 33.0 RDW 13.7 Plt Count 240 MPV 10.5 Neut # (Auto) 3.4 Lymph # (Auto) 1.5 [place] # (Auto) 0.5 Eos # (Auto) 0.1 Baso # (Auto) 0.0 Absolute Nucleated RBC 0.00 Nucleated RBC % 0.0 Sodium 138 Potassium 4.1 Chloride 106 Carbon Dioxide 22 Anion Gap 10.0 BUN 9 Creatinine 0.9 Estimated GFR (MDRD) 72 L Glucose 110 H Calcium 9.2 Total Bilirubin 1.0 AST 37 ALT 52 Alkaline Phosphatase 83 Total Protein 7.8 Albumin 4.4 Globulin 3.4 Albumin/Globulin Ratio 1.3 Lipase 28 PD Medical Decision Making - ED course ED course: 32-year-old woman with known gallstones has been having attacks of biliary colic and was medicated here for what apparently the same with Dilaudid and Toradol, on recheck she was feeling much better and was all the pain-free. CBC and CMP were unremarkable. She declined surgical consultation today. Departure - Departure Disposition: 01 Home, Self Care Clinical Impression: Biliary colic Condition: Good Record reviewed to determine appropriate education?: Yes Instructions: ED Gallstone W Biliary Colic Prescriptions: HYDROcod/ACETAM 5/325 [[place] 5/325] 1 - 2 tab PO Q6H PRN #15 tablet PRN Reason: Pain Comments: I sent your prescriptions electronically to the [facility] in [place]. Follow- up with the surgeon as scheduled. Continue light low-fat low-protein diet until your gallbladder is out. Return for new or worsening symptoms. I am prescribing a short course of narcotic pain medication for you. These are potentially dangerous and addictive medications that should be used carefully. These medications may constipate you. Take an nzci-oks-neondlc stool softener (docusate) twice daily with plenty of water while taking these medications. If you go 24 hours without a bowel movement, take wyhc-ige-jobzcaa miralax, per package instructions. Do not drink or drive while taking these medications. If you received narcotic or sedating medications while in the emergency department, do not drive for 24 hours. Store this medication in a safe, secure place and out of reach of children. It is a violation of federal law to give or sell this medication to another person or to use in a manner other than prescribed. The ED will not refill narcotic prescriptions, including prescriptions lost or stolen. To dispose of unwanted medications: 1. [facility] provides a drop box for medication in pill form only (no liquids) 8:00 am to 4:30 p.m. Saturday-Saturday in the lobby of the [facility], [address] Empty pills into ziplock bag before disposal. Call [phone] for information. 2.[employer] is a free service available to all [facility] residents. Go to [email or web address] Note that many narcotic pain relievers also contain Tylenol/acetaminophen. Please ensure that your total dose of acetaminophen from all sources does not exceed 3 g (3000 mg) per day.
[2023-08-01] MEDS: HYDROmorphone 1 MG/ML CARPUJECT IVP STA (15:36)
[2023-08-01 15:37] LABS: BASOPHILS % (AUTO) 0.4 %; EOSINOPHILS # (AUTO) 0.1 10^3/uL (0.0-0.7); EOSINOPHILS % (AUTO) 1.5 %; HCT - HEMATOCRIT 42.4 % (37.0-47.0); LYMPHOCYTES # (AUTO) 1.5 10^3/uL (1.5-3.5); LYMPHOCYTES % (AUTO) 26.8 %; MEAN CORPUSCULAR VOLUME 90.8 fL (81.0-99.0); MEAN PLATELET VOLUME 10.5 fL (7.9-10.8); MONOCYTES # (AUTO) 0.5 10^3/uL (0.0-1.0); MONOCYTES % (AUTO) 9.1 %; NEUTROPHILS # (AUTO) 3.4 10^3/uL (1.5-6.6); PLT - PLATELET COUNT 240 10^3/uL (130-450); RED BLOOD COUNT 4.67 10^6/uL (4.20-5.40); RED CELL DISTRIBUTION WIDTH 13.7 % (12.0-15.0); WHITE BLOOD COUNT 5.5 x10^3/uL (4.8-10.8)
[2023-08-01] MEDS: KETOROLAC 15 MG/ML VIAL IVP STA (15:43)
[2023-08-01 15:54] LABS: ALBUMIN 4.4 g/dL (3.2-5.5); ALBUMIN/GLOBULIN RATIO 1.3 (1.0-2.2); CALCIUM 9.2 mg/dL (8.5-10.3); CREATININE 0.9 mg/dL (0.6-1.3); POTASSIUM 4.1 mmol/L (3.5-4.5); TOTAL PROTEIN 7.8 g/dL (6.4-8.9)
[2023-08-01 16:58] VITALS: BP 126/87; O2SAT 99
== END 2023-08-01 16:51 | disposition home or self-care (01) ==
LOC: ED 15:04
DX: K80.50 Calculus of bile duct without cholangitis or cholecystitis without obstruction (principal)
CPT/HCPCS: 36415; 80053; 83690; 85025; 96374; 96375; 99283; J1170

== ENCOUNTER 2023-08-11 00:36 | Emergency (ER) | payer MEDICAID ==
[2023-08-11 01:16] LABS: BASOPHILS % (AUTO) 0.4 %; EOSINOPHILS # (AUTO) 0.1 10^3/uL (0.0-0.7); EOSINOPHILS % (AUTO) 1.6 %; HCT - HEMATOCRIT 42.9 % (37.0-47.0); HGB - HEMOGLOBIN 14.1 g/dL (12.0-16.0); LYMPHOCYTES # (AUTO) 4.2 10^3/uL (1.5-3.5); LYMPHOCYTES % (AUTO) 46.4 %; MEAN CORPUSCULAR HEMOGLOBIN 29.4 pg (27.0-31.0); MEAN CORPUSCULAR HGB CONC 32.9 g/dL (32.0-36.0); MEAN CORPUSCULAR VOLUME 89.6 fL (81.0-99.0); MEAN PLATELET VOLUME 10.3 fL (7.9-10.8); MONOCYTES # (AUTO) 0.7 10^3/uL (0.0-1.0); MONOCYTES % (AUTO) 7.3 %; NEUTROPHILS # (AUTO) 3.9 10^3/uL (1.5-6.6); PLT - PLATELET COUNT 357 10^3/uL (130-450); RED BLOOD COUNT 4.79 10^6/uL (4.20-5.40); RED CELL DISTRIBUTION WIDTH 13.2 % (12.0-15.0)
[2023-08-11 01:31] LABS: ALBUMIN 4.5 g/dL (3.2-5.5); ALBUMIN/GLOBULIN RATIO 1.4 (1.0-2.2); BILIRUBIN,TOTAL 0.7 mg/dL (0.2-1.0); CALCIUM 10.2 mg/dL (8.5-10.3); CREATININE 0.8 mg/dL (0.6-1.3); POTASSIUM 3.9 mmol/L (3.5-4.5); TOTAL PROTEIN 7.8 g/dL (6.4-8.9)
--- NOTE | 2023-08-11 01:36 | ED Physician Documentation ---
PD HPI ABD PAIN - Stated complaint Stated Complaint: ABD PX - Chief complaint Chief Complaint: General - History obtained from History obtained from: Patient - Additional information Additional information: HPI from patient. Patient was T+R from this ED 07/31 and 08/01 for same symptoms, as well as T+R from ED 07/29. She c/o upper abdominal pain, episodic for several weeks and attributed to biliary colic; she is scheduled for cholecystecomy at next week. presents with recurrence of RUQ and epigastric pain with n/v since earlier tonight. Ran out of prescription pain medication. 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: Other HEENT:  - Present Medications Home Medications: Ambulatory Orders Medication Instructions Recorded Confirmed DULoxetine [Cymbalta] 30 mg PO DAILY 07/31/23 08/01/23 HYDROcod/ACET 5/325 Prepack 4 1 tab PO Q6HR PRN 07/31/23 08/01/23 [NORCO 5/325 Prepack 4] Ondansetron Odt [Zofran] 4 mg TL Q6H PRN #10 tablet 07/31/23 08/01/23 Oseltamivir [Tamiflu] 75 mg PO BID #10 cap 07/31/23 08/01/23 HYDROcod/ACETAM 5/325 [[place] 5/325] 1 - 2 tab PO Q6H PRN #15 tablet 08/01/23 Ondansetron Odt [Zofran Odt] 4 mg TL Q6H PRN #14 tablet 08/11/23 oxyCODONE [Roxicodone] 5 - 10 mg PO Q6H PRN #14 tablet 08/11/23 - Allergies Allergies/Adverse Reactions: Allergies Allergy/AdvReac Type Severity Reaction Status Date / Time No Known Drug Allergies Allergy Verified 08/11/23 00:56 - Social History Does the pt smoke?: No Smoking Status: Never smoker Does the pt drink ETOH?: Yes Does the pt have substance abuse?: Yes - Immunizations Immunizations are current?: Yes - POLST Patient has POLST: No PD ED PE NORMAL - Vitals Vital signs reviewed: Yes - General General: Alert and oriented X 3, Well developed/nourished, Other (moderate painful distress) - Cardiac Cardiac: RRR, No murmur - Respiratory Respiratory: No respiratory distress, Clear bilaterally - Abdomen Abdomen: Soft, Non tender, Non distended - Back Back: No CVA TTP - Derm Derm: Normal color, Warm and dry Results - Vitals Vitals: Oxygen O2 Source Room air - Labs Labs: Laboratory Tests 08/11/23 08/11/23 01:09 01:09 WBC 9.0 RBC 4.79 Hgb 14.1 Hct 42.9 MCV 89.6 MCH 29.4 MCHC 32.9 RDW 13.2 Plt Count 357 MPV 10.3 Neut # (Auto) 3.9 Lymph # (Auto) 4.2 H [place] # (Auto) 0.7 Eos # (Auto) 0.1 Baso # (Auto) 0.0 Absolute Nucleated RBC 0.00 Nucleated RBC % 0.0 Sodium 138 Potassium 3.9 Chloride 105 Carbon Dioxide 23 Anion Gap 10.0 BUN 15 Creatinine 0.8 Estimated GFR (MDRD) 83 L Glucose 119 H Calcium 10.2 Total Bilirubin 0.7 AST 19 ALT 20 Alkaline Phosphatase 81 Total Protein 7.8 Albumin 4.5 Globulin 3.3 Albumin/Globulin Ratio 1.4 Lipase 49 PD Medical Decision Making - ED course Complexity details: reviewed old records, reviewed results, re-evaluated patient, considered differential, d/w patient ED course: No concerning nor diagnostic findings on CBC, ER abdominal panel.She is given 1mg IV dilaudid, 4mg IV zofran, and 30mg IV toradol. On reevaluation, she is in NAD and reports symptom relief with these measures. Results d/w patient, return precautions reviewed. I have electronically submitted prescriptions for oxycodone and ondansetron to patient's pharmacy of choice. Departure - Departure Disposition: 01 Home, Self Care Clinical Impression: Biliary colic Condition: Good Instructions: ED Gallstone W Biliary Colic Prescriptions: oxyCODONE [Roxicodone] 5 - 10 mg PO Q6H PRN #14 tablet PRN Reason: Pain >8 Ondansetron Odt [Zofran Odt] 4 mg TL Q6H PRN #14 tablet PRN Reason: Nausea / Vomiting Comments: There were no concerning findings on tonight's blood tests including your white blood cell count and your liver function tests. I have electronically submitted prescriptions for oxycodone (narcotic/opiate pain medication) and ondansetron (antinausea medication) to the [facility] pharmacy in [place]. I am prescribing a short course of narcotic pain medication for you. These are potentially dangerous and addictive medications that should be used carefully. These medications may constipate you. Take an ejxh-rux-pzeawmd stool softener (docusate) twice daily with plenty of water while taking these medications. If you go 24 hours without a bowel movement, take ypvc-qha-umkqjci miralax, per package instructions. Do not drink or drive while taking these medications. If you received narcotic or sedating medications while in the emergency department, do not drive for 24 hours. Store this medication in a safe, secure place and out of reach of children. It is a violation of federal law to give or sell this medication to another person or to use in a manner other than prescribed. The ED will not refill narcotic prescriptions, including prescriptions lost or stolen. To dispose of unwanted medications: 1. [facility] [address] [facility] in [place] has a medication drop box. They accept prescription medications (in pill form) Saturday through Saturday 9:00 a.m. to 5:00 p.m. 2. The [facility] [place] [employer] accepts prescription medications (in pill form only) for disposal year round. Call for more information. 3. Contact the [facility] for the next [facility] sponsored prescription drug collection event. , [phone], or [phone]; Forms: PCP List Discharge Date/Time: 08/11/23 03:42
[2023-08-11] MEDS: ONDANSETRON 4 MG/2 ML VIAL IVP STA (01:40)
[2023-08-11] MEDS: HYDROmorphone 1 MG/ML CARPUJECT IVP STA (01:40)
[2023-08-11 02:14] VITALS: O2SAT 98
[2023-08-11] MEDS: KETOROLAC 30 MG/ML VIAL IVP STA (02:17)
[2023-08-11] MEDS: oxyCODONE/ACET 5/325 Prepack 4 PO STA (03:27)
[2023-08-11] MEDS: ONDANSETRON ODT 4 MG Prepack 2 TL PRN (03:41)
[2023-08-11 03:52] VITALS: BP 117/86
== END 2023-08-11 03:42 | disposition home or self-care (01) ==
LOC: ED 00:36
DX: K80.50 Calculus of bile duct without cholangitis or cholecystitis without obstruction (principal); I10 Essential (primary) hypertension
CPT/HCPCS: 36415; 80053; 83690; 85025; 96374; 96375; 99283; J1170